=== PATIENT | female | born 1945 | race Caucasian/White ===

== ENCOUNTER → 2016-05-18 | Outpatient (CLI) | payer MEDICARE, MEDICAID | LOC: RAD 19:04 | PROVIDERS: ATTEND Internal Medicine | DX: C50.412 Malignant neoplasm of upper-outer quadrant of left female breast (principal) | CPT/HCPCS: 78815; A9552 ==

== ENCOUNTER 2016-07-20 12:22 | Emergency (ER) | payer MEDICARE, MEDICAID ==
--- NOTE | 2016-07-20 12:34 | ER Document Report ---
ED Medical Screen (RME) - General Stated Complaint: WEAKNESS Mode of Arrival: Wheelchair Information source: Patient Notes: Patient presents to the emergency department with left arm pain, fluid, that she 's had for almost 2 months. No erythema or warmth noted to area of pain. Patient reports history of breast cancer with mastectomy one year ago. Reports vomiting yesterday. Declines antinausea medication now, reports took one this am. Reports she's been to see Dr. Bender about this pain. Came in today for this pain. Reports she feels weak. reports abdominal pain from hernia. Denies chest pain. I have greeted and performed a rapid initial assessment of this patient. A comprehensive ED assessment and evaluation of the patient, analysis of test results and completion of the medical decision making process will be conducted by additional ED providers. TRAVEL OUTSIDE OF THE [place] IN LAST 30 DAYS: No - Related Data Allergies/Adverse Reactions: No Known Allergies Allergy (Verified 07/20/16 12:32) Past Medical History - Past Medical History Cardiac Medical History: Reports: Hx Hypercholesterolemia, Hx Hypertension Denies: Hx Heart Attack Pulmonary Medical History: Reports: Hx Asthma, Hx COPD Denies: Hx Bronchitis, Hx Pneumonia Neurological Medical History: Denies: Hx Seizures Endocrine Medical History: Reports: Hx Diabetes Mellitus Type 2 Malignancy Medical History: Reports: Hx Breast Cancer - Left GI Medical History: Reports: Hx Gastroesophageal Reflux Disease, Hx Endoscopy Musculoskeltal Medical History: Reports Hx Arthritis - RA, OA, Degenerative arthritis Psychiatric Medical History: Reports: Hx Depression Past Surgical History: Reports: Hx Abdominal Surgery - VENTRAL HERNIA REPAIRS WITH MESH, Hx Breast Surgery - Left mastectomy with axillary node dissection, Hx Gastric Bypass Surgery - Gastric sleeve, Hx Orthopedic Surgery - right shoulder, Bilat Knee replacement - Immunizations Immunizations up to date: Yes Hx Diphtheria, Pertussis, Tetanus Vaccination: Yes
[2016-07-20 13:05] LABS: ABSOLUTE EOSINOPHILS # (AUTO) 0.1 10^3/uL (0.0-0.6); ABSOLUTE LYMPHOCYTES (AUTO) 0.7 10^3/uL (0.5-4.7); ABSOLUTE MONOCYTES (AUTO) 0.6 10^3/uL (0.1-1.4); ABSOLUTE NEUT (AUTO) 5.5 10^3/uL (1.7-8.2); BASOPHILS % (AUTO) 0.4 % (0-2); EOSINOPHILS % (AUTO) 1.8 % (0-6); HEMATOCRIT 36.5 % (36.0-47.0); HEMOGLOBIN 12.3 g/dL (12.0-15.5); HGB HCT DIFFERENCE 0.4; LYMPHOCYTES % (AUTO) 10.7 % (13-45); MEAN CORPUSCULAR HEMOGLOBIN 33.2 pg (27.0-33.4); MEAN CORPUSCULAR HGB CONC 33.6 g/dL (32.0-36.0); MEAN CORPUSCULAR VOLUME 99 fl (80-97); RED CELL DISTRIBUTION WIDTH 16.1 % (11.5-14.0); SEGMENTED NEUTROPHILS % (AUTO) 79.1 % (42-78)
[2016-07-20 13:10] LABS: ALANINE AMINOTRANSFERASE 28 U/L (9-52); ALBUMIN 3.7 g/dL (3.5-5.0); ALKALINE PHOSPHATASE 96 U/L (38-126); ANION GAP 12 (5-19); ASPARTATE AMINO TRANSFERASE 20 U/L (14-36); BILIRUBIN,DIRECT 0.3 mg/dL (0.0-0.4); BILIRUBIN,TOTAL 0.4 mg/dL (0.2-1.3); BLOOD UREA NITROGEN 20 mg/dL (7-20); CARBON DIOXIDE 27 mmol/L (22-30); CHLORIDE 106 mmol/L (98-107); CREATININE RESULT 0.78 mg/dL (0.52-1.25); GLUCOSE 72 mg/dL (75-110); POTASSIUM 4.4 mmol/L (3.6-5.0); SODIUM 144.7 mmol/L (137-145); TOTAL PROTEIN 6.6 g/dL (6.3-8.2)
--- NOTE | 2016-07-20 14:17 | ER Document Report ---
ED General - General Chief Complaint: Arm Pain Stated Complaint: WEAKNESS Time seen by provider: 14:13 Mode of Arrival: Ambulatory Information source: Patient Notes: This is a 70-year-old female with a history of left breast cancer (status post left mastectomy, radiation therapy and chemotherapy), chronic left upper extremity pain secondary to arthritis, rheumatoid arthritis, diabetes and dyslipidemia. The patient has had chronic left shoulder pain and she is presenting to the emergency room with persistent left shoulder pain. She has been evaluated by orthopedics (Dr. Clements) as well as her primary care doctor( Dr Crawford) and has been referred to pain management. She denies any fever, chills, skin redness. She did drive here today. She states she's been experiencing pain and needs something for pain. TRAVEL OUTSIDE OF THE [place] IN LAST 30 DAYS: No - HPI Onset: Last week Onset/Duration: Gradual Quality of pain: Dull Severity: Moderate Pain Level: 2 Associated symptoms: denies: Chills, Fever, Shortness of breath Exacerbated by: Denies Relieved by: Denies Similar symptoms previously: No Recently seen / treated by doctor: No - Related Data Allergies/Adverse Reactions: No Known Allergies Allergy (Verified 07/20/16 12:32) Past Medical History - General Information source: Patient - Social History Smoking Status: Never Smoker Cigarette use (# per day): No Chew tobacco use (# tins/day): No Frequency of alcohol use: None Drug Abuse: None Lives with: Family Family History: Reviewed & Not Pertinent Patient has suicidal ideation: No Patient has homicidal ideation: No - Past Medical History Cardiac Medical History: Reports: Hx Hypercholesterolemia, Hx Hypertension Denies: Hx Heart Attack Pulmonary Medical History: Reports: Hx Asthma, Hx COPD Denies: Hx Bronchitis, Hx Pneumonia Neurological Medical History: Denies: Hx Seizures Endocrine Medical History: Reports: Hx Diabetes Mellitus Type 2 Renal/ Medical History: Denies: Hx Peritoneal Dialysis Malignancy Medical History: Reports: Hx Breast Cancer - Left GI Medical History: Reports: Hx Gastroesophageal Reflux Disease, Hx Endoscopy Musculoskeltal Medical History: Reports Hx Arthritis - RA, OA, Degenerative arthritis Psychiatric Medical History: Reports: Hx Depression Past Surgical History: Reports: Hx Abdominal Surgery - VENTRAL HERNIA REPAIRS WITH MESH, Hx Breast Surgery - Left mastectomy with axillary node dissection, Hx Gastric Bypass Surgery - Gastric sleeve, Hx Orthopedic Surgery - right shoulder, Bilat Knee replacement - Immunizations Immunizations up to date: Yes Hx Diphtheria, Pertussis, Tetanus Vaccination: Yes Hx Pneumococcal Vaccination: 12/27/12 Review of Systems - Review of Systems Notes: Review of systems: Constitutional: Denies fever, chills. EENT: Denies ear pain, sinus tenderness, throat pain, throat swelling. Cardiovascular: Denies chest pain, palpitations, dyspnea or edema. Respiratory: Denies wheezing, cough, hemoptysis. Abdomen: Denies abdominal pain, nausea, vomiting, diarrhea. Denies BRBPR or melena. Genitourinary: Denies dysuria, pyuria, hematuria, flank pain. Musculoskeletal: See H&P Neurologic: Denies headache, photophobia, neck stiffness, weakness. Denies loss of bowel or bladder function. Denies saddle anesthesia. Skin: Denies rash, lesions. Physical Exam - Vital signs Vitals: Temp Pulse Resp BP Pulse Ox 98.4 F 69 16 146/79 H 98 07/20/16 12:32 07/20/16 12:32 07/20/16 12:32 07/20/16 12:32 07/20/16 12:32 Notes: Physical exam: GENERAL: 70-year-old female, alert and oriented 3, resting in stretcher, no acute distress. HEAD: Atraumatic, normocephalic. EYES: Pupils equal round and reactive to light, extraocular movements intact, sclera anicteric, conjunctiva are normal. ENT: TMs normal, nares patent, oropharynx clear without exudates. Moist mucous membranes. NECK: Normal range of motion, supple without lymphadenopathy or JVD. LUNGS: Breath sounds clear to auscultation bilaterally and equal. No wheezes rales or rhonchi. HEART: Regular rate and rhythm without murmurs, rubs or gallops. ABDOMEN: Soft, normoactive bowel sounds. No tenderness to palpation. Extremities: Left shoulder shows decreased range of motion secondary to pain. There is crepitus with range of motion. There is no erythema or joint swelling. The patient has significant soft tissue pannus at the level of the humerus. The tissue is soft, nontender and without any erythema, warmth, fluctuance. Distally: 2+ arterial pulse. Good cap refill. Good range of motion of the wrist and elbow. The patient does have crepitus of both those joints, but there is no swelling or effusion noted. NEUROLOGICAL: Cranial nerves II through XII grossly intact. Normal speech, normal gait. PSYCH: Normal mood, normal affect. SKIN: Warm, Dry, normal turgor, no rashes or lesions noted. Course - Vital Signs Vital signs: Temp Pulse Resp BP Pulse Ox 98.4 F 77 18 155/61 H 96 07/20/16 12:32 07/20/16 15:58 07/20/16 15:58 07/20/16 15:58 07/20/16 15:58 - Laboratory Result Diagrams: 07/20/16 12:43 07/20/16 12:43 Laboratory results interpreted by me: 07/20/16 07/20/16 12:43 12:43 RBC 3.70 L MCV 99 H RDW 16.1 H Seg Neutrophils % 79.1 H Lymphocytes % 10.7 L Glucose 72 L Discharge - Discharge Clinical Impression: Pain of left shoulder joint on movement Condition: Stable Disposition: HOME, SELF-CARE Instructions: Oral Narcotic Medication ([facility]) Additional Instructions: As we discussed, the x-rays show significant arthritis of the left shoulder joint. Continue current medicines. Take the oxycodone as needed for pain. See the narcotic instruction sheet. Follow-up with your primary care doctor (Dr. Cobos) this week. Consider going to the pain clinic: I left the number for the [place] [facility]. The pain medicine you're taking prescribed as a narcotic. There are several important things you should know about this medicine: 1. Taking narcotics for too long can lead to physical and mental dependence. Take this medicine only if really needed and in the lowest quantity to achieve pain relief. 2. Do not drink alcohol while on this medicine. Alcohol interacts with narcotics and the combination can be dangerous. 3. Do not drive or operate machinery while on this medicine. 4. Narcotics do cause constipation, so drink plenty of fluids and daily stool softeners. Prescriptions: Oxycodone HCl 5 mg PO Q6HP PRN #25 tablet PRN Reason: Referrals: CARLO CRAWFORD MD [Primary Care Provider] - Follow up in 3-5 days MIAH BINGHAM MD [ACTIVE STAFF] - Follow up as needed (This is the number for the pain clinic)
[2016-07-20 16:00] VITALS: BP 155/61
== END 2016-07-20 15:58 | disposition home or self-care (01) ==
LOC: ER 12:22
DX: G89.29 Other chronic pain (principal); M25.512 Pain in left shoulder; M06.9 Rheumatoid arthritis, unspecified; E11.9 Type 2 diabetes mellitus without complications; I10 Essential (primary) hypertension; J44.9 Chronic obstructive pulmonary disease, unspecified; Z85.3 Personal history of malignant neoplasm of breast; Z92.21 Personal history of antineoplastic chemotherapy; Z92.3 Personal history of irradiation; Z98.84 Bariatric surgery status
CPT/HCPCS: 36415; 80053; 85025; 99283

== ENCOUNTER 2017-06-24 11:20 | Observation (INO) | payer MEDICARE, MEDICAID ==
--- NOTE | 2017-06-17 11:08 | RADIOLOGY REPORT (SQ) ---
EXAM DESCRIPTION: CHEST PA/LATERAL COMPLETED DATE/TIME: 06/17/2017 10:42 am REASON FOR STUDY: PRE OP COMPARISON: CT chest 04/17/2016 EXAM PARAMETERS: NUMBER OF VIEWS: two views TECHNIQUE: Digital Frontal and Lateral radiographic views of the chest acquired. RADIATION DOSE: NA LIMITATIONS: none FINDINGS: LUNGS AND PLEURA: No opacities, masses or pneumothorax. No pleural effusion. MEDIASTINUM AND HILAR STRUCTURES: No masses or contour abnormalities. HEART AND VASCULAR STRUCTURES: Heart normal size. No evidence for failure. BONES: Osteopenic. Advanced arthritis left shoulder. HARDWARE: Right-sided permanent central line tip superior vena cava. Surgical clips post left mastec shukri. Right upper quadrant clips from cholecystectomy. Inferior vena cava filter. OTHER: No other significant finding. IMPRESSION: No acute findings TECHNICAL DOCUMENTATION: JOB ID: [id number] [employer]- All Rights Reserved
[2017-06-17 11:11] LABS: HEMATOCRIT 34.9 % (36.0-47.0); HEMOGLOBIN 11.4 g/dL (12.0-15.5); MEAN CORPUSCULAR HEMOGLOBIN 29.5 pg (27.0-33.4); MEAN CORPUSCULAR HGB CONC 32.6 g/dL (32.0-36.0); MEAN CORPUSCULAR VOLUME 91 fl (80-97); PLATELET COUNT 242 10^3/uL (150-450); RED BLOOD COUNT 3.86 10^6/uL (3.72-5.28); WHITE BLOOD COUNT 5.6 10^3/uL (4.0-10.5)
[2017-06-17 11:32] LABS: ANION GAP 11 (5-19); BLOOD UREA NITROGEN 32 mg/dL (7-20); CALCIUM 9.5 mg/dL (8.4-10.2); CARBON DIOXIDE 28 mmol/L (22-30); CHLORIDE 101 mmol/L (98-107); GLUCOSE 115 mg/dL (75-110); POTASSIUM 4.7 mmol/L (3.6-5.0); SODIUM 140.2 mmol/L (137-145)
--- NOTE | 2017-06-17 13:47 | EKG REPORT ---
SEVERITY:- NORMAL ECG - SINUS RHYTHM : Confirmed by: Michael Waters MD 17-Jun-2017 13:46:59
[~2017-06-24 11:20] MED LIST: CEFAZOLIN 1 GM/D5W RTU 1 GM/50 ML RTUPB IV PRN; LACTATED RINGERS 1000 ML IV PRN; LIDOCAINE 0.5% INJ-PF (5 MG/ML) 50 ML SDV SUBCUT PRN; LIDOCAINE 4% TRANSPARENT DRESSING 5 GM KIT TP PRN; NORMAL SALINE 1000 ML 1,000 ML IV PRN
[2017-07-15] MEDS ORDERED: LIDOCAINE 0.5% INJ-PF (5 MG/ML) 50 ML SDV SUBCUT PRN (05:00)
[2017-07-15] MEDS ORDERED: LIDOCAINE 4% TRANSPARENT DRESSING 5 GM KIT TP PRN (05:00)
[2017-07-15] MEDS ORDERED: CEFAZOLIN 1 GM/D5W RTU 1 GM/50 ML RTUPB IV PRN (05:00)
[2017-07-15] MEDS ORDERED: LACTATED RINGERS 1000 ML IV PRN (05:00)
[2017-07-15] MEDS ORDERED: CEFAZOLIN INJ 1 GM VIAL IV PRN (05:00)
[2017-07-15 09:23] LABS: POTASSIUM 4.6 mmol/L (3.6-5.0)
[2017-07-15] MEDS ORDERED: MICROFIBRILLAR COLLAGEN 1 GM PACK ONE (12:20)
[2017-07-15] MEDS ORDERED: LIDOCAINE 1%/EPINEPHRINE INJ 20 ML VIAL ONE (12:20)
[2017-07-15] MEDS ORDERED: METHYLENE BLUE 50 MG/10 ML AMPULE ONE (12:20)
[2017-07-15] MEDS ORDERED: FENTANYL CITRATE INJ/PF 250 MCG/5 ML AMPULE ONE (13:28)
[2017-07-15] MEDS ORDERED: ACETAMINOPHEN 100 ML IV ONE (13:29)
[2017-07-15] MEDS ORDERED: EPHEDRINE SULFATE INJ 50 MG/1 ML AMPULE ONE (13:29)
[2017-07-15] MEDS ORDERED: MIDAZOLAM 2 MG/2 ML INJ ONE (13:29)
[2017-07-15] MEDS ORDERED: PROPOFOL INJ 200 MG/20 ML VIAL IV ONE (13:29)
[2017-07-15] MEDS ORDERED: MEPERIDINE HCL/PF INJ 25 MG/1 ML DISP.SYRIN IV PRN (14:36)
[2017-07-15] MEDS ORDERED: ONDANSETRON HCL INJ/PF 4 MG/2 ML SDV IV PRN (14:36)
[2017-07-15] MEDS ORDERED: DIPHENHYDRAMINE HCL 50 MG/ML VIAL IV PRN (14:36)
[2017-07-15] MEDS ORDERED: FENTANYL CITRATE INJ/PF 100 MCG/2 ML AMPUL IV PRN ×3 (14:36)
[2017-07-15] MEDS ORDERED: PROMETHAZINE HCL INJ 25 MG/1 ML VIAL IV PRN ×2 (14:36)
--- NOTE | 2017-07-15 14:51 | RADIOLOGY REPORT (SQ) ---
EXAM DESCRIPTION: NM LYMPHATICS/LYMPH GLANDS COMPLETED DATE/TIME: 07/15/2017 11:24 am REASON FOR STUDY: RT BREAST CANCER C50.911 MALIGNANT NEOPLASM OF UNSP SITE OF RIGHT FEMALE PADMA Z79 .899 OTHER SENIOR CARE (CURRENT) DRUG THERAPY COMPARISON: No right breast imaging available in PACs RADIONUCLIDE AND DOSE: 552 microcuries TC-99m tilmanocept - [employer]. The route of agent administration: Subcutaneous in the skin. TECHNIQUE: The skin of the right breast was prepped in sterile fashion. The radiopharmaceutical was administered in equally divided doses in the periareolar breast. LIMITATIONS: None. FINDINGS: Images demonstrate activity at the injection site. There is migration of activity towards the right axilla. IMPRESSION: ADMINISTRATION OF RADIOPHARMACEUTICAL FOR SENTINEL LYMPH NODE EVALUATION. TECHNICAL DOCUMENTATION: JOB ID: [id number] [employer]- All Rights Reserved Reading location - IP/workstation name: [email or web address]
[2017-07-15] MEDS ORDERED: LIDOCAINE 2% INJ-PF (20 MG/ML) 2 ML AMPUL ONE (14:58)
[2017-07-15] MEDS ORDERED: SUCCINYLCHOLINE CHLORIDE INJ 200 MG/10 ML VIAL ONE (14:58)
[2017-07-15] MEDS ORDERED: KETOROLAC TROMETHAMINE 60 MG/2 ML SDV ONE (14:58)
[2017-07-15] MEDS ORDERED: METOCLOPRAMIDE HCL INJ/PF 10 MG/2 ML SDV ONE (14:58)
[2017-07-15] MEDS ORDERED: ONDANSETRON HCL INJ/PF 4 MG/2 ML SDV ONE (14:58)
--- NOTE | 2017-07-15 15:17 | Operative Report ---
Operative Report DATE OF SURGERY: 07/15/17 PREOPERATIVE DIAGNOSIS: 1. New invasive lobular right breast carcinoma. 2. History of stage III invasive left breast carcinoma status post left modified radical mastectomy, the patient therapy and adjuvant chemotherapy POSTOPERATIVE DIAGNOSIS: Same OPERATION: 1. Right mastectomy. 2. [place] lymph node biopsy right axilla 3. 3. Drainage of chest wall SURGEON: TED JOHNSTON REACH TRUCK OPERATOR: SPIKE SANCHEZ ANESTHESIA: GA TISSUE REMOVED OR ALTERED: Right breast; sentinel lymph nodes right axilla 3 COMPLICATIONS: None ESTIMATED BLOOD LOSS: 75 cc INTRAOPERATIVE FINDINGS: See below PROCEDURE: Patient was seen in the preop holding area after undergoing lymphoscintigraphy of the right breast the patient was found to have an area of increased activity in the right axilla consistent with successful mapping. Right breast was marked. The patient was then taken to the main operating room where general anesthesia was induced. The breast was exposed right arm abducted, and the right breast injected with 2 cc of full-strength methylene blue areola border, 11 o'clock position right breast. Right breast was massaged, than the right breast and right axilla were prepped and draped sterile fashion. Surgical plan surgical timeout were conducted. Markings were made on the skin for planned mastectomy. An ellipse of skin was then incised with the #10 blade. Superior and inferior skin flaps were raised. The right breast was taken off the chest wall, specifically the pectoralis major muscle including the pectoralis fascia. The tumor was in the upper outer quadrant of the right breast. Once the right breast was suspended from the tail of Burns, we proceeded with sentinel node biopsy The sentinel node biopsy formed using the neoprobe intraoperatively. The area of increased activity in the low axilla identified first is a blue hot node, level 1 with an in vivo count of 5223 and an ex vivo count of 212. And sentinel lymph node was not blue, but hot but very small with an in vivo count of 19,253 and an ex vivo count of 13,601. A third sentinel node hot, small and not blue was identified also level 1 in vivo count of 8085, ex vivo count of 7702. Ground levels were negligible. At this point felt the operation was complete. The mastectomy specimen was labeled with a long suture the lateral position short suture in the superior position. Breast, and sentinel lymph nodes were sent in formalin for permanent analysis A large Brett drain was placed in the inferior skin flap, secured to skin with 2 -0 Prolene suture, then a mastectomy wound closed with running 2-0 Vicryl suture. Skin glue applied. Patient taught procedure well, extubated, taken recovery in stable condition. The physician habilitation assistant, Ms. Blackman, provided assistance during this case by: Assisting retracting tissue, instillation of local anesthesia and closure of skin incisions.
[2017-07-15] MEDS ORDERED: DEXTROSE 5%-LACTATED RINGERS 1,000 ML IV PRN (15:26)
[2017-07-15] MEDS ORDERED: MORPHINE SULFATE 10 MG/ML INJ IV PRN (15:26)
[2017-07-15] MEDS ORDERED: FENTANYL CITRATE INJ/PF 100 MCG/2 ML AMPUL ONE (15:28)
[2017-07-15] MEDS ORDERED: KETOROLAC TROMETHAMINE 10 MG TABLET PO PRN (15:31)
[2017-07-15] MEDS ORDERED: GLUCAGON,HUMAN RECOMB 1 MG INJ IM PRN (15:35)
[2017-07-15] MEDS ORDERED: DEXTROSE 50%-WATER 25 GM/50 ML DISP.SYRIN IV PRN ×2 (15:35)
[2017-07-15] MEDS ORDERED: DEXTROSE 40% GEL 15 GM TUBE PO PRN ×2 (15:35)
[2017-07-15] MEDS ORDERED: KETOROLAC TROMETHAMINE INJ/PF 30 MG/1 ML SDV ONE (16:03)
[2017-07-15] MEDS: ACETAMINOPHEN 100 ML IV SCH ×2 (17:45→23:10)
[2017-07-15] MEDS ORDERED: ACETAMINOPHEN INJ/PF 1000 MG/100 ML SDV IV SCH (18:00)
[2017-07-15] MEDS ORDERED: NORMAL SALINE 1000 ML 1,000 ML IV PRN (23:08)
[2017-07-15] MEDS ORDERED: INSULIN LISPRO 100 UNIT/ML 3 ML VIAL SUBCUT PRN (23:09)
[2017-07-16] MEDS: ACETAMINOPHEN 100 ML IV SCH (05:03)
[2017-07-16] MEDS: INSULIN LISPRO 100 UNIT/ML 3 ML VIAL SUBCUT SCH ×2 (08:21→12:14)
[2017-07-16 11:12] VITALS: BP 112/53
--- NOTE | 2017-07-21 07:29 | DISCHARGE SUMMARY E ---
Discharge Summary NAME: RICK ROMANO : 1945 AGE: 71Y ADMITTED: 07/15/2017 DISCHARGED: 07/16/2017 REASON FOR ADMISSION: Metachronous breast cancer. SUMMARY OF HOSPITALIZATION: The patient is a 71-year-old white female with a history of previous left breast cancer, stage III, who is now brought back to the operating room for right mastectomy for invasive lobular carcinoma. The patient underwent the planned procedure, right mastectomy with sentinel node biopsy x3 right axilla and drains of chest wall. Patient tolerated the procedure well. There were no postprocedure complications. She was kept overnight and the following morning was getting about well and ready for discharge home. DISCHARGE DIAGNOSES: 1. New right invasive lobular breast carcinoma status post right mastectomy with sentinel lymph node biopsy x3 and drain of chest wall by Dr. Allen. 2. History of stage III left breast carcinoma. DISPOSITION: Patient will be discharged home in the care of her family. DISCHARGE INSTRUCTIONS: Followup with [facility] in 1 week for drainage management, take Motrin or Tylenol p.r.n. pain. DICTATING PHYSICIAN: TED ALLEN M.D. [id number] PHY#: [id number] ID: [id number] JOB#: [id number] ACCT: [id number] cc:TED ALLEN M.D. >
== END 2017-07-16 12:38 | disposition home or self-care (01) ==
LOC: OROUT 07-15 08:00 → EDSTATUS 07-15 12:00 → 2N 07-15 15:26 → OROUT 07-15 16:15 → 2N 07-16 12:38
PROVIDERS: ADMIT Surgery; ATTEND Surgery
PROC: 07B50ZX Excision of Right Axillary Lymphatic, Open Approach, Diagnostic (ICD-10-PCS; 2017-07-15)
PROC: 3E0 Administration, Physiological Systems and Anatomical Regions, Introduction (ICD-10-PCS; 2017-07-15)
PROC: 0HTT0ZZ Resection of Right Breast, Open Approach (ICD-10-PCS; principal; 2017-07-15 13:30)
DX: C50.411 Malignant neoplasm of upper-outer quadrant of right female breast (principal); C77.3 Secondary and unspecified malignant neoplasm of axilla and upper limb lymph nodes; Z17.0 Estrogen receptor positive status [ER+]; I10 Essential (primary) hypertension; E11.9 Type 2 diabetes mellitus without complications; R00.2 Palpitations; M06.9 Rheumatoid arthritis, unspecified; F32.9 Major depressive disorder, single episode, unspecified; M19.90 Unspecified osteoarthritis, unspecified site; Z79.82 Long term (current) use of aspirin; Z79.899 Other long term (current) drug therapy; Z85.3 Personal history of malignant neoplasm of breast; Z80.3 Family history of malignant neoplasm of breast; Z87.891 Personal history of nicotine dependence; Z90.12 Acquired absence of left breast and nipple; Z79.84 Long term (current) use of oral hypoglycemic drugs
CPT/HCPCS: 93005; 36415 ×2; 82962; 82947; 84132; 85027; 80048; 88342 ×2; 88305 ×2; 88309 ×2; 71046; 78195; 94799; 93010; 19307; G0378 ×2; G0379; A9520; J2250; J0690; J3490 ×4; J1885 ×2; J3010; J2765; J2270; J0330; J2405; J7030; J2704; J0131 ×2; Q9968; 1610

== ENCOUNTER → 2017-09-22 | Outpatient (CLI) | payer MEDICARE, MEDICAID ==
--- NOTE | 2017-09-22 13:49 | RADIOLOGY REPORT (SQ) ---
EXAM DESCRIPTION: CHEST PA/LATERAL COMPLETED DATE/TIME: 09/22/2017 11:26 am REASON FOR STUDY: COUGH,WHEEZING R06.2 WHEEZING R05 COUGH COMPARISON: 06/17/2017 NUMBER OF VIEWS: Two view. TECHNIQUE: Frontal and lateral radiographic views of the chest acquired. LIMITATIONS: None. FINDINGS: LUNGS AND PLEURA: No opacities, masses or pneumothorax. No pleural effusion. Attenuated bl ood vessels and flattened jennifer-diaphragms. MEDIASTINUM AND HILAR STRUCTURES: No masses. No contour abnormalities. HEART AND VASCULAR STRUCTURES: Stable heart size. No evidence for failure. BONES: No acute findings. HARDWARE: Clips overlying axillary regions. OTHER: Unchanged position of right-sided port. IMPRESSION: COPD. NO ACUTE RADIOGRAPHIC FINDING IN THE CHEST. TECHNICAL DOCUMENTATION: JOB ID: [id number] [employer]- All Rights Reserved Reading location - IP/workstation name: [email or web address]
== END ==
LOC: OD 11:14
PROVIDERS: ATTEND Surgery
DX: R06.2 Wheezing (principal); R05 Cough
CPT/HCPCS: 71046

== ENCOUNTER 2017-09-23 14:51 | Emergency (ER) | payer MEDICARE, MEDICAID ==
--- NOTE | 2017-09-23 16:17 | ER Document Report ---
ED General - General Chief Complaint: General Weakness Stated Complaint: COUGH,DIZZINESS Time Seen by Provider: 09/23/17 16:15 Notes: 71 years old female with a history of bilateral mastectomy. Presents today with general weakness malaise coughing, and neck pain generalized weakness. And also loss of appetite. She was sent over here by her oncologist. I have greeted and performed a rapid initial assessment of this patient. A comprehensive ED assessment and evaluation of the patient, analysis of test results and completion of the medical decision making process will be conducted by additional ED providers. PHYSICAL EXAMINATION: GENERAL: Appears pale HEAD: Atraumatic, normocephalic. EYES: Pupils equal round extraocular movements intact, conjunctiva are normal. ENT: Nares patent NECK: Normal range of motion LUNGS: Decreased breath sounds on the right side with rales. Scattered mild wheezes throughout the lung field Musculoskeletal: Normal range of motion NEUROLOGICAL: Normal speech, normal gait. PSYCH: Normal mood, normal affect. SKIN: Warm, Dry, normal turgor, no rashes or lesions noted. TRAVEL OUTSIDE OF THE [place] IN LAST 30 DAYS: No - Related Data Allergies/Adverse Reactions: No Known Allergies Allergy (Verified 09/23/17 14:59) Past Medical History - Social History Smoking Status: Unknown if Ever Smoked Chew tobacco use (# tins/day): No Frequency of alcohol use: None Drug Abuse: None Family History: Reviewed & Not Pertinent Patient has suicidal ideation: No Patient has homicidal ideation: No - Past Medical History Cardiac Medical History: Reports: Hx Hypercholesterolemia, Hx Hypertension Denies: Hx Coronary Artery Disease, Hx Heart Attack Pulmonary Medical History: Reports: Hx Asthma, Hx COPD Denies: Hx Bronchitis, Hx Pneumonia Neurological Medical History: Denies: Hx Cerebrovascular Accident, Hx Seizures Endocrine Medical History: Reports: Hx Diabetes Mellitus Type 2 Renal/ Medical History: Denies: Hx Peritoneal Dialysis Malignancy Medical History: Reports: Hx Breast Cancer - Left GI Medical History: Reports: Hx Gastroesophageal Reflux Disease, Hx Endoscopy Musculoskeltal Medical History: Reports Hx Arthritis - RA, OA, DEGENERATIVE arthritis Psychiatric Medical History: Reports: Hx Depression Past Surgical History: Reports: Hx Abdominal Surgery - VENTRAL HERNIA REPAIRS WITH MESH, Hx Breast Surgery - Left mastectomy with axillary node dissection, Hx Gastric Bypass Surgery - Gastric sleeve, Hx Orthopedic Surgery - right shoulder, Bilat Knee replacement - Immunizations Immunizations up to date: Yes Hx Diphtheria, Pertussis, Tetanus Vaccination: Yes Hx Pneumococcal Vaccination: 12/27/12 Physical Exam - Vital signs Vitals: Temp Pulse Resp BP Pulse Ox 99.0 F 59 L 16 124/68 96 09/23/17 15:03 09/23/17 15:03 09/23/17 15:03 09/23/17 15:03 09/23/17 15:03 Course - Vital Signs Vital signs: Temp Pulse Resp BP Pulse Ox 99.0 F 59 L 16 124/68 96 09/23/17 15:03 09/23/17 15:03 09/23/17 15:03 09/23/17 15:03 09/23/17 15:03 - Laboratory Result Diagrams: 09/23/17 16:45 09/23/17 16:45 Laboratory results interpreted by me: 09/23/17 09/23/17 16:45 16:45 RBC 3.09 L Hgb 9.2 L Hct 28.3 L RDW 17.4 H Potassium 5.6 H BUN 55 H Creatinine 1.74 H Est GFR ( Amer) 35 L Est GFR (Non-Af Amer) 29 L Discharge - Discharge Referrals: CARLO CRAWFORD MD [Primary Care Provider] - Follow up as needed
[2017-09-23 17:03] LABS: ABSOLUTE EOSINOPHILS # (AUTO) 0.2 10^3/uL (0.0-0.6); ABSOLUTE LYMPHOCYTES (AUTO) 0.8 10^3/uL (0.5-4.7); ABSOLUTE MONOCYTES (AUTO) 0.5 10^3/uL (0.1-1.4); ABSOLUTE NEUT (AUTO) 3.5 10^3/uL (1.7-8.2); BASOPHILS % (AUTO) 0.3 % (0-2); EOSINOPHILS % (AUTO) 4.4 % (0-6); HEMATOCRIT 28.3 % (36.0-47.0); HEMOGLOBIN 9.2 g/dL (12.0-15.5); LYMPHOCYTES % (AUTO) 15.5 % (13-45); MEAN CORPUSCULAR HEMOGLOBIN 29.7 pg (27.0-33.4); MEAN CORPUSCULAR HGB CONC 32.5 g/dL (32.0-36.0); MEAN CORPUSCULAR VOLUME 92 fl (80-97); MONOCYTES % (AUTO) 9.8 % (3-13); PLATELET COUNT 227 10^3/uL (150-450); RED BLOOD COUNT 3.09 10^6/uL (3.72-5.28); RED CELL DISTRIBUTION WIDTH 17.4 % (11.5-14.0); TOTAL CELLS COUNTED % (AUTO) 100 %; WHITE BLOOD COUNT 4.9 10^3/uL (4.0-10.5)
[2017-09-23 17:11] LABS: ALANINE AMINOTRANSFERASE 32 U/L (9-52); ALBUMIN 3.6 g/dL (3.5-5.0); ALKALINE PHOSPHATASE 77 U/L (38-126); ANION GAP 11 (5-19); ASPARTATE AMINO TRANSFERASE 30 U/L (14-36); BILIRUBIN,DIRECT 0.3 mg/dL (0.0-0.4); BILIRUBIN,TOTAL 0.3 mg/dL (0.2-1.3); BLOOD UREA NITROGEN 55 mg/dL (7-20); CALCIUM 9.2 mg/dL (8.4-10.2); CARBON DIOXIDE 23 mmol/L (22-30); CHLORIDE 103 mmol/L (98-107); GLUCOSE 90 mg/dL (75-110); POTASSIUM 5.6 mmol/L (3.6-5.0); SODIUM 137.2 mmol/L (137-145); TOTAL PROTEIN 6.5 g/dL (6.3-8.2)
--- NOTE | 2017-09-23 17:22 | RADIOLOGY REPORT (SQ) ---
EXAM DESCRIPTION: CHEST SINGLE VIEW COMPLETED DATE/TIME: 09/23/2017 5:14 pm REASON FOR STUDY: Shortness of breath COMPARISON: 03/13/2015 EXAM PARAMETERS: NUMBER OF VIEWS: One view. TECHNIQUE: Single frontal radiographic view of the chest acquired. RADIATION DOSE: NA LIMITATIONS: None. FINDINGS: LUNGS AND PLEURA: The lungs are hyperexpanded. There is no infiltrate or effusion. There is no mass. MEDIASTINUM AND HILAR STRUCTURES: No masses. Contour normal. HEART AND VASCULAR STRUCTURES: Heart normal in size. Normal vasculature. BONES: No acute findings. HARDWARE: Surgical clips. Injection port on the right. OTHER: No other significant finding. IMPRESSION: Chronic lung changes with no acute cardiopulmonary disease. TECHNICAL DOCUMENTATION: JOB ID: [id number] [employer]- All Rights Reserved Reading location - IP/workstation name: [email or web address]
[2017-09-23 17:23] LABS: NT PRO BNP 355 pg/mL (5-900); TROPONIN I < 0.012 ng/mL
[2017-09-23] MEDS ORDERED: NORMAL SALINE 1000 ML 1,000 ML IV ONE (18:06)
[2017-09-23] MEDS ORDERED: SODIUM POLYSTYRENE SULFONATE 15 GM/60 ML PO ONE (18:06)
--- NOTE | 2017-09-23 19:29 | ER Document Report ---
ED Dizziness/Weakness - General Chief Complaint: General Weakness Stated Complaint: COUGH,DIZZINESS Time Seen by Provider: 09/23/17 16:15 Notes: Chief complaint: History of complain:( obtained from----patient) which one I do1 years old female with a history of bilateral mastectomy. Presents today with general weakness malaise coughing, and neck pain generalized weakness. And also loss of appetite. She was sent over here by her oncologist. Onset: Gradual gradual Duration: Last few days Severity: Mild to moderate Quality: Unknown Context: Breast cancer Exacerbating factor and relieving factors: Exertion REVIEW OF SYSTEMS: CONSTITUTIONAL : Denies fever, chills, or sweats. Denies recent illness. EENT: Denies eye, ear, throat, or mouth pain or symptoms. Denies nasal or sinus congestion or discharge. Denies throat, tongue, or mouth swelling or difficulty swallowing. CARDIOVASCULAR: Denies chest pain. Denies palpitations or racing or irregular heart beat. Denies ankle edema. RESPIRATORY: Denies cough, cold, or chest congestion. Denies shortness of breath, difficulty breathing, or wheezing. GASTROINTESTINAL: Denies distention. Denies nausea, vomiting, or diarrhea. Denies blood in vomitus, stools, or per rectum. Denies black, tarry stools. Denies constipation. GENITOURINARY: Denies difficulty urinating, painful urination, burning, frequency, blood in urine, or discharge. FEMALE GENITOURINARY: Denies vaginal bleeding, heavy or abnormal periods, irregular periods. Denies vaginal discharge or odor. MUSCULOSKELETAL: Denies back or neck pain or stiffness. Denies joint pain or swelling. SKIN: Denies rash, lesions or sores. HEMATOLOGIC : Denies easy bruising or bleeding. LYMPHATIC: Denies swollen, enlarged glands. PSYCHIATRIC: Denies anxiety or stress. Denies depression, suicidal ideation, or homicidal ideation. ALL OTHER SYSTEMS REVIEWED AND NEGATIVE. PHYSICAL EXAMINATION: GENERAL: Elderly, appears to be weak HEAD: Atraumatic, normocephalic.GENERAL: Appears pale HEAD: Atraumatic, normocephalic. EYES: Pupils equal round extraocular movements intact, conjunctiva are normal. ENT: Nares patent NECK: Normal range of motion LUNGS: Decreased breath sounds on the right side with rales. Scattered mild wheezes throughout the lung field Cardiovascular system-normal S1-S2 systolic murmur at apex Musculoskeletal: Normal range of motion NEUROLOGICAL: Normal speech, normal gait. PSYCH: Normal mood, normal affect. Dictation was performed using [employer] voice recognition software TRAVEL OUTSIDE OF THE [place] IN LAST 30 DAYS: No - Related Data Allergies/Adverse Reactions: No Known Allergies Allergy (Verified 09/23/17 14:59) Past Medical History - Social History Smoking Status: Unknown if Ever Smoked Chew tobacco use (# tins/day): No Frequency of alcohol use: None Drug Abuse: None Family History: Reviewed & Not Pertinent Patient has suicidal ideation: No Patient has homicidal ideation: No - Past Medical History Cardiac Medical History: Reports: Hx Hypercholesterolemia, Hx Hypertension Denies: Hx Coronary Artery Disease, Hx Heart Attack Pulmonary Medical History: Reports: Hx Asthma, Hx COPD Denies: Hx Bronchitis, Hx Pneumonia Neurological Medical History: Denies: Hx Cerebrovascular Accident, Hx Seizures Endocrine Medical History: Reports: Hx Diabetes Mellitus Type 2 Renal/ Medical History: Denies: Hx Peritoneal Dialysis Malignancy Medical History: Reports: Hx Breast Cancer - Left GI Medical History: Reports: Hx Gastroesophageal Reflux Disease, Hx Endoscopy Musculoskeltal Medical History: Reports Hx Arthritis - RA, OA, DEGENERATIVE arthritis Psychiatric Medical History: Reports: Hx Depression Past Surgical History: Reports: Hx Abdominal Surgery - VENTRAL HERNIA REPAIRS WITH MESH, Hx Breast Surgery - Left mastectomy with axillary node dissection, Hx Gastric Bypass Surgery - Gastric sleeve, Hx Orthopedic Surgery - right shoulder, Bilat Knee replacement - Immunizations Immunizations up to date: Yes Hx Diphtheria, Pertussis, Tetanus Vaccination: Yes Hx Pneumococcal Vaccination: 12/27/12 Review of Systems - Review of Systems Notes: Dictated Physical Exam - Vital signs Vitals: Temp Pulse Resp BP Pulse Ox 99.0 F 59 L 16 124/68 96 09/23/17 15:03 09/23/17 15:03 09/23/17 15:03 09/23/17 15:03 09/23/17 15:03 - Notes Notes: Dictated Course - Re-evaluation Re-evalutation: 09/23/17 19:31 She refused to stay subsequently convinced as to stay because of her elevated creatinine and potassium, managed to give a 1 L of normal saline IV. Subsequently discharged home. - Vital Signs Vital signs: Temp Pulse Resp BP Pulse Ox 99.0 F 59 L 16 124/68 96 09/23/17 15:03 09/23/17 15:03 09/23/17 15:03 09/23/17 15:03 09/23/17 15:03 - Laboratory Result Diagrams: 09/23/17 16:45 09/23/17 16:45 Laboratory results interpreted by me: 09/23/17 09/23/17 16:45 16:45 RBC 3.09 L Hgb 9.2 L Hct 28.3 L RDW 17.4 H Potassium 5.6 H BUN 55 H Creatinine 1.74 H Est GFR ( Amer) 35 L Est GFR (Non-Af Amer) 29 L Discharge - Discharge Clinical Impression: Dehydration, Hypokalemia, Azotemia Condition: Fair Disposition: HOME, SELF-CARE Instructions: Dehydration ([facility]) Referrals: CARLO CRAWFORD MD [Primary Care Provider] - Follow up as needed
[2017-09-23 19:53] VITALS: BP 94/82
--- NOTE | 2017-09-23 23:11 | EKG REPORT ---
SEVERITY:- ABNORMAL ECG - SINUS RHYTHM MULTIPLE ATRIAL PREMATURE COMPLEXES : Confirmed by: Sharon Butcher 23-Sep-2017 23:10:11
== END 2017-09-23 19:52 | disposition home or self-care (01) ==
LOC: ER 14:51
DX: E86.0 Dehydration (principal); E87.6 Hypokalemia; R79.89 Other specified abnormal findings of blood chemistry; R05 Cough; R53.1 Weakness; R42 Dizziness and giddiness; E78.00 Pure hypercholesterolemia, unspecified; I10 Essential (primary) hypertension; J44.9 Chronic obstructive pulmonary disease, unspecified; E11.9 Type 2 diabetes mellitus without complications; Z85.3 Personal history of malignant neoplasm of breast; Z98.84 Bariatric surgery status; Z96.653 Presence of artificial knee joint, bilateral
CPT/HCPCS: 93005; 36591; 99285; 96360; 36415; 85025; 80053; 84484; 83880; 71045; 93010; J7030

== ENCOUNTER → 2017-10-13 | Outpatient (CLI) | payer MEDICARE, MEDICAID ==
[2017-10-13 12:44] LABS: ABSOLUTE BASOPHILS # (AUTO) 0.1 10^3/uL (0.0-0.2); ABSOLUTE EOSINOPHILS # (AUTO) 0.2 10^3/uL (0.0-0.6); ABSOLUTE LYMPHOCYTES (AUTO) 0.9 10^3/uL (0.5-4.7); ABSOLUTE MONOCYTES (AUTO) 0.6 10^3/uL (0.1-1.4); ABSOLUTE NEUT (AUTO) 9.9 10^3/uL (1.7-8.2); BASOPHILS % (AUTO) 1.2 % (0-2); EOSINOPHILS % (AUTO) 1.7 % (0-6); HEMATOCRIT 32.9 % (36.0-47.0); HEMOGLOBIN 10.6 g/dL (12.0-15.5); LYMPHOCYTES % (AUTO) 7.7 % (13-45); MEAN CORPUSCULAR HEMOGLOBIN 29.7 pg (27.0-33.4); MEAN CORPUSCULAR HGB CONC 32.1 g/dL (32.0-36.0); MEAN CORPUSCULAR VOLUME 93 fl (80-97); MONOCYTES % (AUTO) 5.4 % (3-13); PLATELET COUNT 234 10^3/uL (150-450); RED BLOOD COUNT 3.56 10^6/uL (3.72-5.28); TOTAL CELLS COUNTED % (AUTO) 100 %; WHITE BLOOD COUNT 11.8 10^3/uL (4.0-10.5)
[2017-10-13 12:55] LABS: ALANINE AMINOTRANSFERASE 25 U/L (9-52); ALBUMIN 3.9 g/dL (3.5-5.0); ALKALINE PHOSPHATASE 84 U/L (38-126); ASPARTATE AMINO TRANSFERASE 21 U/L (14-36); BILIRUBIN,DIRECT 0.3 mg/dL (0.0-0.4); BILIRUBIN,TOTAL 0.6 mg/dL (0.2-1.3); TOTAL PROTEIN 6.6 g/dL (6.3-8.2)
== END ==
LOC: OD 11:22
PROVIDERS: ATTEND Radiology Radiation Oncology
DX: Z79.899 Other long term (current) drug therapy (principal)
CPT/HCPCS: 36415; 80076; 85025

== ENCOUNTER 2018-04-12 11:30 | Inpatient (IN) | payer MEDICARE, MEDICAID ==
[2018-04-12] MEDS ORDERED: HYDROMORPHONE HCL INJ/PF 2 MG/ML AMPULE IV ONE (12:18)
--- NOTE | 2018-04-12 12:36 | ER Document Report ---
ED General - General Chief Complaint: Pain All Over Stated Complaint: BODY PAIN Time Seen by Provider: 04/12/18 12:16 Mode of Arrival: Wheelchair Information source: Patient, Dr. Office Notes: 72-year-old female with breast cancer, bilateral mastectomy, hypertension, hyperlipidemia, diabetes, COPD, rheumatoid arthritis presents her primary care physician's office with orders for direct admission secondary to total body pain that has been ongoing for 3 days. Patient states that she has pain equally throughout her body. She denies worsening chest pain, shortness of breath. TRAVEL OUTSIDE OF THE [place] IN LAST 30 DAYS: No - HPI Onset: Other Onset/Duration: Gradual, Persistent Quality of pain: Achy, Throbbing Severity: Moderate Associated symptoms: Body/muscle aches. denies: Nonproductive cough, Diarrhea, Fever, Headache, Nausea, Vomiting Exacerbated by: Movement Relieved by: Denies Similar symptoms previously: Yes Recently seen / treated by doctor: Yes - Dr. Bender this morning - Related Data Allergies/Adverse Reactions: No Known Allergies Allergy (Verified 04/12/18 11:30) Past Medical History - General Information source: Patient, [facility] Records - Social History Smoking Status: Former Smoker Frequency of alcohol use: None Drug Abuse: None Lives with: Family Family History: Reviewed & Not Pertinent Patient has suicidal ideation: No Patient has homicidal ideation: No - Past Medical History Cardiac Medical History: Reports: Hx Hypercholesterolemia, Hx Hypertension Denies: Hx Coronary Artery Disease, Hx Heart Attack Pulmonary Medical History: Reports: Hx Asthma, Hx COPD Denies: Hx Bronchitis, Hx Pneumonia Neurological Medical History: Denies: Hx Cerebrovascular Accident, Hx Seizures Endocrine Medical History: Reports: Hx Diabetes Mellitus Type 2 Renal/ Medical History: Denies: Hx Peritoneal Dialysis Malignancy Medical History: Reports: Hx Breast Cancer - Left GI Medical History: Reports: Hx Gastroesophageal Reflux Disease, Hx Endoscopy Musculoskeletal Medical History: Reports Hx Arthritis - RA, OA, DEGENERATIVE arthritis Psychiatric Medical History: Reports: Hx Depression Past Surgical History: Reports: Hx Abdominal Surgery - VENTRAL HERNIA REPAIRS WITH MESH, Hx Breast Surgery - Left mastectomy with axillary node dissection, Hx Gastric Bypass Surgery - Gastric sleeve, Hx Orthopedic Surgery - right shoulder, Bilat Knee replacement - Immunizations Immunizations up to date: Yes Hx Diphtheria, Pertussis, Tetanus Vaccination: Yes Hx Pneumococcal Vaccination: 12/27/12 Review of Systems - Review of Systems Notes: REVIEW OF SYSTEMS: CONSTITUTIONAL : Denies fever, chills, or sweats. Denies recent illness. Denies weight loss, recent hospitalizations. EENT: Denies visual changes, eye pain. Denies sore throat, oral lesions, difficulty swallowing. CARDIOVASCULAR: Denies chest pain. Denies palpitations. Denies lower extremity edema. RESPIRATORY: Denies cough. Denies shortness of breath, wheezing. GASTROINTESTINAL: Denies abdominal pain or distention. Denies nausea, vomiting , or diarrhea. Denies blood in vomitus, stools, or per rectum. Denies black, tarry stools. Denies constipation. GENITOURINARY: Denies difficulty urinating, painful urination, frequency, blood in urine, or vaginal discharge. MUSCULOSKELETAL: Denies back or neck pain or stiffness. SKIN: Denies rash, lesions or sores. HEMATOLOGIC : Denies easy bruising or bleeding. LYMPHATIC: Denies swollen glands. NEUROLOGICAL: Denies confusion or altered mental status. Denies loss of consciousness. Denies dizziness or lightheadedness. Denies headache. Denies weakness or paralysis. Denies problems difficulty with ambulation, slurred speech. Denies sensory loss, numbness, or tingling. Denies seizures. PSYCHIATRIC: Denies anxiety or stress. Denies depression, suicidal ideation, or homicidal ideation. Denies visual or auditory hallucinations. PHYSICAL EXAMINATION: GENERAL: Well-appearing, well-nourished and in no acute distress. HEAD: Atraumatic, normocephalic. EYES: Pupils equal round and reactive to light, extraocular movements intact, conjunctiva are normal. ENT: Nares patent, oropharynx clear without exudates. Moist mucous membranes. NECK: Normal range of motion, supple without lymphadenopathy LUNGS: Breath sounds clear to auscultation bilaterally and equal. No wheezes rales or rhonchi. HEART: Regular rate and rhythm without murmurs ABDOMEN: Soft, nontender, nondistended abdomen. No guarding, no rebound. No masses appreciated. Female : deferred Musculoskeletal: Normal range of motion, no pitting or edema. No cyanosis. NEUROLOGICAL: Cranial nerves grossly intact. Normal speech, normal gait. Normal sensory, motor exams PSYCH: Normal mood, normal affect. SKIN: Warm, Dry, normal turgor, no rashes or lesions noted. Physical Exam - Vital signs Vitals: Temp Pulse Resp BP Pulse Ox 97.8 F 62 18 120/53 L 99 04/12/18 11:40 04/12/18 11:40 04/12/18 11:40 04/12/18 11:40 04/12/18 11:40 Interpretation: No: Hypoxic, Febrile - Notes Notes: PHYSICAL EXAMINATION: GENERAL: Ill-appearing, mild distress, wheelchair-bound HEAD: Atraumatic, normocephalic. EYES: Pupils equal round and reactive to light, extraocular movements intact, conjunctiva are normal. ENT: Nares patent, oropharynx clear without exudates. Dry mucous membranes. NECK: Normal range of motion, supple without lymphadenopathy LUNGS: Breath sounds clear to auscultation bilaterally and equal. No wheezes rales or rhonchi. HEART: Regular rate and rhythm without murmurs ABDOMEN: Soft, nontender, nondistended abdomen. No guarding, no rebound. No masses appreciated. Female : deferred Musculoskeletal:, no pitting or edema. No cyanosis. NEUROLOGICAL: Cranial nerves grossly intact. Normal speech, normal gait. Normal sensory, motor exams PSYCH: Normal mood, normal affect. SKIN: Warm, Dry, normal turgor, no rashes or lesions noted. Course - Re-evaluation Re-evalutation: Microbiology 04/12/18 12:47 Urine Culture - Preliminary Clean Catch Midstream Gram Negative Rods Laboratory 04/12/18 04/12/18 04/12/18 12:33 12:33 12:33 WBC 8.0 RBC 3.93 Hgb 12.0 Hct 36.3 MCV 92 MCH 30.6 MCHC 33.1 RDW 16.4 H Plt Count 234 Seg Neutrophils % 83.5 H Lymphocytes % 7.2 L Monocytes % 6.9 Eosinophils % 1.8 Basophils % 0.6 Absolute Neutrophils 6.6 Absolute Lymphocytes 0.6 Absolute Monocytes 0.5 Absolute Eosinophils 0.1 Absolute Basophils 0.0 Sodium 139.2 Potassium 4.4 Chloride 104 Carbon Dioxide 27 Anion Gap 8 BUN 20 Creatinine 0.79 Est GFR ( Amer) > 60 Est GFR (Non-Af Amer) > 60 Glucose 193 H Calcium 9.3 Total Bilirubin 0.5 Direct Bilirubin 0.3 Neonat Total Bilirubin Not Reportable Neonat Direct Bilirubin Not Reportable Neonat Indirect Bili Not Reportable AST 18 ALT 10 Alkaline Phosphatase 78 Troponin I < 0.012 NT-Pro-B Natriuret Pep 620 Total Protein 6.9 Albumin 3.9 Urine Color Urine Appearance Urine pH Ur Specific [place] Urine Protein Urine Glucose (UA) Urine Ketones Urine Blood Urine Nitrite Urine Bilirubin Urine Urobilinogen Ur Leukocyte Esterase Urine WBC (Auto) Urine Bacteria (Auto) Squamous Epi Cells Auto Urine Mucus (Auto) Urine Ascorbic Acid 04/12/18 04/13/18 04/13/18 12:47 06:28 06:28 WBC 4.6 RBC 3.46 L Hgb 10.6 L Hct 31.3 L MCV 90 MCH 30.6 MCHC 33.9 RDW 16.6 H Plt Count 178 Seg Neutrophils % Lymphocytes % Monocytes % Eosinophils % Basophils % Absolute Neutrophils Absolute Lymphocytes Absolute Monocytes Absolute Eosinophils Absolute Basophils Sodium 137.9 Potassium 4.0 Chloride 108 H Carbon Dioxide 25 Anion Gap 5 BUN 17 Creatinine 0.73 Est GFR ( Amer) > 60 Est GFR (Non-Af Amer) > 60 Glucose 105 Calcium 8.8 Total Bilirubin Direct Bilirubin Neonat Total Bilirubin Neonat Direct Bilirubin Neonat Indirect Bili AST ALT Alkaline Phosphatase Troponin I NT-Pro-B Natriuret Pep Total Protein Albumin Urine Color YELLOW Urine Appearance SLIGHTLY-CLOUDY Urine pH 5.0 Ur Specific [place] 1.020 Urine Protein NEGATIVE Urine Glucose (UA) NEGATIVE Urine Ketones NEGATIVE Urine Blood SMALL H Urine Nitrite POSITIVE H Urine Bilirubin NEGATIVE Urine Urobilinogen NEGATIVE Ur Leukocyte Esterase NEGATIVE Urine WBC (Auto) 8 Urine Bacteria (Auto) 3+ Squamous Epi Cells Auto <1 Urine Mucus (Auto) MANY Urine Ascorbic Acid NEGATIVE 04/13/18 13:23 72-year-old female presents with complaint of total body pain. Was sent here for by Dr. Bender for direct admission. Written orders for Dilaudid were given by Dr. Bender. I did contact him and he stated he did not want anything emergently obtained in the emergency department. Patient was accepted for admission. - Vital Signs Vital signs: Temp Pulse Resp BP Pulse Ox 98.3 F 64 14 118/65 98 04/13/18 11:53 04/13/18 11:53 04/13/18 11:53 04/13/18 11:53 04/13/18 11:53 - Laboratory Result Diagrams: 04/13/18 06:28 04/13/18 06:28 Laboratory results interpreted by me: 04/12/18 04/12/18 04/12/18 12:33 12:33 12:47 RDW 16.4 H Seg Neutrophils % 83.5 H Lymphocytes % 7.2 L Glucose 193 H Urine Blood SMALL H Urine Nitrite POSITIVE H Discharge - Discharge Clinical Impression: Myalgia, History of breast cancer Chronic pain Qualifiers: Chronic pain type: other chronic pain Qualified Code(s): G89.29 - Other chronic pain Condition: Good Disposition: ADMITTED INPATIENT Admitting Provider: Yulia Unit Admitted: Medical Floor
[2018-04-12 12:54] LABS: ABSOLUTE EOSINOPHILS # (AUTO) 0.1 10^3/uL (0.0-0.6); ABSOLUTE LYMPHOCYTES (AUTO) 0.6 10^3/uL (0.5-4.7); ABSOLUTE MONOCYTES (AUTO) 0.5 10^3/uL (0.1-1.4); ABSOLUTE NEUT (AUTO) 6.6 10^3/uL (1.7-8.2); BASOPHILS % (AUTO) 0.6 % (0-2); EOSINOPHILS % (AUTO) 1.8 % (0-6); HEMATOCRIT 36.3 % (36.0-47.0); LYMPHOCYTES % (AUTO) 7.2 % (13-45); MEAN CORPUSCULAR HEMOGLOBIN 30.6 pg (27.0-33.4); MEAN CORPUSCULAR HGB CONC 33.1 g/dL (32.0-36.0); MEAN CORPUSCULAR VOLUME 92 fl (80-97); MONOCYTES % (AUTO) 6.9 % (3-13); PLATELET COUNT 234 10^3/uL (150-450); RED BLOOD COUNT 3.93 10^6/uL (3.72-5.28); RED CELL DISTRIBUTION WIDTH 16.4 % (11.5-14.0); SEGMENTED NEUTROPHILS % (AUTO) 83.5 % (42-78); TOTAL CELLS COUNTED % (AUTO) 100 %
[2018-04-12 13:01] LABS: APPEARANCE,URINE SLIGHTLY-CLOUDY; BILIRUBIN,URINE NEGATIVE (NEGATIVE); COLOR,URINE YELLOW; GLUCOSE, URINE NEGATIVE (NEGATIVE); KETONES,URINE NEGATIVE (NEGATIVE); LEUKOCYTE ESTERASE,URINE NEGATIVE (NEGATIVE); NITRITE,URINE POSITIVE (NEGATIVE); PROTEIN,URINE NEGATIVE (NEGATIVE); UROBILINOGEN,URINE NEGATIVE mg/dL (<2.0)
[2018-04-12 13:12] LABS: ALANINE AMINOTRANSFERASE 10 U/L (9-52); ALBUMIN 3.9 g/dL (3.5-5.0); ALKALINE PHOSPHATASE 78 U/L (38-126); ANION GAP 8 (5-19); ASPARTATE AMINO TRANSFERASE 18 U/L (14-36); BILIRUBIN,DIRECT 0.3 mg/dL (0.0-0.4); BILIRUBIN,TOTAL 0.5 mg/dL (0.2-1.3); BLOOD UREA NITROGEN 20 mg/dL (7-20); CALCIUM 9.3 mg/dL (8.4-10.2); CARBON DIOXIDE 27 mmol/L (22-30); CHLORIDE 104 mmol/L (98-107); GLUCOSE 193 mg/dL (75-110); POTASSIUM 4.4 mmol/L (3.6-5.0); SODIUM 139.2 mmol/L (137-145); TOTAL PROTEIN 6.9 g/dL (6.3-8.2)
[2018-04-12 13:26] LABS: NT PRO BNP 620 pg/mL (5-900)
[2018-04-12 13:28] LABS: TROPONIN I < 0.012 ng/mL
--- NOTE | 2018-04-12 14:02 | RADIOLOGY REPORT (SQ) ---
EXAM DESCRIPTION: CHEST 2 VIEWS COMPLETED DATE/TIME: 04/12/2018 1:41 pm REASON FOR STUDY: pain COMPARISON: August 2017 EXAM PARAMETERS: NUMBER OF VIEWS: two views TECHNIQUE: Digital Frontal and Lateral radiographic views of the chest acquired. RADIATION DOSE: NA LIMITATIONS: none FINDINGS: LUNGS AND PLEURA: No acute consolidations are identified. There is suggestion of a pleura l base mass projected in the right lung apex laterally. Chest CT scan may be of value for further ev aluation. The previously described chronic appearing lung findings are stable. No pleural effusions are identified. No pneumothorax is seen. MEDIASTINUM AND HILAR STRUCTURES: No masses or contour abnormalities. HEART AND VASCULAR STRUCTURES: Heart normal size. No evidence for failure. BONES: No acute findings. HARDWARE: Surgical clips are again identified in the left axillary region. Port-A-Cath is unchanged in position. OTHER: No other significant finding. IMPRESSION: There is suggestion pleural-based mass projected in the right lung apex as noted above. Chest CT scan may be of value for further evaluation. No other significant interval changes compare d to the previous study. Other findings as noted above TECHNICAL DOCUMENTATION: JOB ID: [id number] [employer]- All Rights Reserved Reading location - IP/workstation name: [email or web address]
[2018-04-12] MEDS ORDERED: (PENDING PHARMACY ID) (Levocetirizine Dihydrochloride [24hr Allergy Relief] 5 MG) PO SCH (20:45)
[2018-04-12] MEDS: CIPROFLOXACIN 400 MG/D5W RTU 400 MG/200 ML RTUPB IV SCH ×2 (21:02→21:04)
[2018-04-12] MEDS: HYDROMORPHONE HCL INJ/PF 2 MG/ML AMPULE IV PRN (21:03)
--- NOTE | 2018-04-12 21:50 | PDOC H&P ---
History of Present Illness Admission Date/PCP: 04/12/18 13:38 CARLO CRAWFORD MD History of Present Illness: RICK ROMANO is a 72 year old female, She has multiple comorbid conditions including metastatic breast cancer, chronic obstructive lung disease , type 2 diabetes mellitus, rheumatoid arthritis, chronic pain, she came to the office on multiple occasions for evaluation of multiple complaints including generalized body aches ,dysuria confusion, patient sister was concerned Because she lives alone, she was admitted directly from the office to the hospital the blood work that was done for this normal hemogram the electrolytes were normal the urinalysis was abnormal With bacteriuria ,pyuria suggesting UTI. Past Medical History Cardiac Medical History: Reports: Hyperlipidema, Hypertension Pulmonary Medical History: Reports: Asthma, Chronic Obstructive Pulmonary Disease (COPD) Endocrine Medical History: Reports: Diabetes Mellitus Type 2 Malignancy Medical History: Reports: Breast Cancer - Left GI Medical History: Reports: Gastroesophageal Reflux Disease Musculoskeltal Medical History: Reports: Arthritis - RA, OA, DEGENERATIVE arthritis Psychiatric Medical History: Reports: Depression Past Surgical History Past Surgical History: Reports: Gastric Bypass Surgery - Gastric sleeve, Orthopedic Surgery - right shoulder, Bilat Knee replacement Social History Lives with: Family Smoking Status: Former Smoker Frequency of Alcohol Use: None Hx Recreational Drug Use: No Drugs: None Hx Prescription Drug Abuse: No - Advance Directive Resuscitation Status: Full Code Family History Family History: Reviewed & Not Pertinent Parental Family History Reviewed: Yes Children Family History Reviewed: Yes Sibling(s) Family History Reviewed.: Yes Medication/Allergy Home Medications: Fluticasone/Salmeterol [Advair 100-50 Diskus 14 Dose/Diskus] 1 puff IH BID 05/20 Atorvastatin Calcium [Lipitor] 20 mg PO DAILY 09/01/14 Metformin HCl [Glucophage] 1,000 mg PO BID 01/17/15 Gabapentin [Gabapentin] 300 mg PO TID 09/23/17 Letrozole 2.5 mg PO DAILY 09/23/17 Citalopram Hydrobromide [Celexa 20 mg Tablet] 20 mg PO DAILY 04/12/18 Gabapentin [Neurontin 300 mg Capsule] 600 mg PO QHS 04/12/18 Levocetirizine Dihydrochloride [24Hr Allergy Relief] 5 mg PO QPM 04/12/18 Oxycodone HCl [Oxycodone HCl ER] 15 mg PO Q12 04/12/18 Allergies/Adverse Reactions: No Known Allergies Allergy (Verified 04/12/18 11:30) Review of Systems Constitutional: PRESENT: fatigue Cardiovascular: ABSENT: as per HPI, chest pain, dyspnea on exertion, edema, orthropnea, palpitations, other Respiratory: ABSENT: as per HPI, cough, dyspnea, hemoptysis, sputum, other Gastrointestinal: PRESENT: nausea Genitourinary: PRESENT: dysuria Musculoskeletal: PRESENT: back pain, joint swelling, muscle weakness Psychiatric: ABSENT: as per HPI, anxiety, depression, hallucinations, homidical ideation, suicidal ideation, other Physical Exam Vital Signs: Temp Pulse Resp BP Pulse Ox 98.4 F 51 L 18 139/48 H 97 04/12/18 20:32 04/12/18 20:32 04/12/18 20:32 04/12/18 20:32 04/12/18 20:32 General appearance: PRESENT: no acute distress Head exam: PRESENT: atraumatic, normocephalic Eye exam: PRESENT: PERRLA Ear exam: PRESENT: normal external ear exam Mouth exam: PRESENT: moist, tongue midline Neck exam: PRESENT: full ROM Respiratory exam: PRESENT: clear to auscultation alfonso Cardiovascular exam: PRESENT: RRR, +S1, +S2 Vascular exam: PRESENT: normal capillary refill GI/Abdominal exam: PRESENT: normal bowel sounds, soft Rectal exam: PRESENT: deferred Neurological exam: PRESENT: alert, CN II-XII grossly intact Skin exam: PRESENT: dry, intact, warm Results Impressions: Chest X-Ray 04/12/18 12:17 IMPRESSION: There is suggestion pleural-based mass projected in the right lung apex as noted above. Chest CT scan may be of value for further evaluation. No other significant interval changes compared to the previous study. Other findings as noted above Assessment & Plan - Diagnosis (1) Urinary tract infection Qualifiers: Urinary tract infection type: site unspecified Hematuria presence: without hematuria Qualified Code(s): N39.0 - Urinary tract infection, site not specified Is this a current diagnosis for this admission?: Yes Plan: Start antibiotic for UTI (2) History of breast cancer Is this a current diagnosis for this admission?: Yes (3) Myalgia Is this a current diagnosis for this admission?: Yes Plan: The etiology of the myalgia is not clear
[2018-04-12] MEDS: FLUTICASONE/SALMETEROL DISKUS 100-50 MCG/DOSE IH SCH (22:31)
[2018-04-12] MEDS: METFORMIN HCL 500 MG TABLET PO SCH (22:51)
[2018-04-13 06:47] LABS: HEMATOCRIT 31.3 % (36.0-47.0); HEMOGLOBIN 10.6 g/dL (12.0-15.5); MEAN CORPUSCULAR HEMOGLOBIN 30.6 pg (27.0-33.4); MEAN CORPUSCULAR HGB CONC 33.9 g/dL (32.0-36.0); MEAN CORPUSCULAR VOLUME 90 fl (80-97); PLATELET COUNT 178 10^3/uL (150-450); RED BLOOD COUNT 3.46 10^6/uL (3.72-5.28); RED CELL DISTRIBUTION WIDTH 16.6 % (11.5-14.0); WHITE BLOOD COUNT 4.6 10^3/uL (4.0-10.5)
[2018-04-13 07:13] LABS: BLOOD UREA NITROGEN 17 mg/dL (7-20); CALCIUM 8.8 mg/dL (8.4-10.2); CARBON DIOXIDE 25 mmol/L (22-30); CHLORIDE 108 mmol/L (98-107); GLUCOSE 105 mg/dL (75-110)
[2018-04-13 08:04] LABS: ANION GAP 5 (5-19); SODIUM 137.9 mmol/L (137-145)
[2018-04-13] MEDS: LETROZOLE 2.5 MG TABLET PO SCH (09:11)
[2018-04-13] MEDS: CIPROFLOXACIN 400 MG/D5W RTU 400 MG/200 ML RTUPB IV SCH ×2 (09:11→21:22)
[2018-04-13] MEDS: METFORMIN HCL 500 MG TABLET PO SCH ×2 (09:11→17:52)
[2018-04-13] MEDS: HYDROMORPHONE HCL INJ/PF 2 MG/ML AMPULE IV PRN ×2 (09:12→18:52)
[2018-04-13] MEDS: FLUTICASONE/SALMETEROL DISKUS 100-50 MCG/DOSE IH SCH ×2 (09:24→17:52)
[2018-04-13] MEDS: CETIRIZINE 5 MG TABLET PO SCH (17:52)
[2018-04-13] MEDS: GABAPENTIN 300 MG CAPSULE PO SCH (19:53)
[2018-04-13] MEDS: CITALOPRAM HYDROBROMIDE 20 MG TABLET PO SCH (19:53)
--- NOTE | 2018-04-13 21:15 | PDOC PROGRESS REPORT ---
Subjective Progress Note for:: 04/13/18 Subjective:: Patient was admitted yesterday, she was seen by the bedside,She has urinary tract infection Reason For Visit: GENERALIZED BODY PAIN Physical Exam Vital Signs: Temp Pulse Resp BP Pulse Ox 97.6 F 71 18 136/60 H 93 04/13/18 20:09 04/13/18 20:09 04/13/18 20:09 04/13/18 20:09 04/13/18 20:09 Intake & Output 04/12/18 04/13/18 04/14/18 06:59 06:59 06:59 Intake Total 400 150 Balance 400 150 Weight 85.7 kg General appearance: PRESENT: no acute distress Eye exam: PRESENT: PERRLA Respiratory exam: PRESENT: clear to auscultation alfonso Cardiovascular exam: PRESENT: +S1, +S2 Neurological exam: PRESENT: alert Results Laboratory Results: 04/13/18 06:28 04/13/18 06:28 04/13/18 04/13/18 06:28 06:28 WBC 4.6 RBC 3.46 L Hgb 10.6 L Hct 31.3 L MCV 90 MCH 30.6 MCHC 33.9 RDW 16.6 H Plt Count 178 Sodium 137.9 Potassium 4.0 Chloride 108 H Carbon Dioxide 25 Anion Gap 5 BUN 17 Creatinine 0.73 Est GFR ( Amer) > 60 Est GFR (Non-Af Amer) > 60 Glucose 105 Calcium 8.8 Impressions: Chest X-Ray 04/12/18 12:17 IMPRESSION: There is suggestion pleural-based mass projected in the right lung apex as noted above. Chest CT scan may be of value for further evaluation. No other significant interval changes compared to the previous study. Other findings as noted above Assessment & Plan - Diagnosis (1) Urinary tract infection Qualifiers: Urinary tract infection type: site unspecified Hematuria presence: without hematuria Qualified Code(s): N39.0 - Urinary tract infection, site not specified Is this a current diagnosis for this admission?: Yes (2) History of breast cancer Is this a current diagnosis for this admission?: Yes (3) Myalgia Is this a current diagnosis for this admission?: Yes
[2018-04-13] MEDS: ONDANSETRON HCL INJ/PF 4 MG/2 ML SDV IV PRN (23:31)
[2018-04-14] MEDS: GABAPENTIN 300 MG CAPSULE PO SCH ×5 (09:54→22:02)
[2018-04-14] MEDS: FLUTICASONE/SALMETEROL DISKUS 100-50 MCG/DOSE IH SCH ×2 (09:55→17:01)
[2018-04-14] MEDS: CIPROFLOXACIN 400 MG/D5W RTU 400 MG/200 ML RTUPB IV SCH (09:56)
[2018-04-14] MEDS: CITALOPRAM HYDROBROMIDE 20 MG TABLET PO SCH (09:56)
[2018-04-14] MEDS: LETROZOLE 2.5 MG TABLET PO SCH (09:56)
[2018-04-14] MEDS: METFORMIN HCL 500 MG TABLET PO SCH ×2 (09:57→16:59)
[2018-04-14] MEDS: HYDROMORPHONE HCL INJ/PF 2 MG/ML AMPULE IV PRN ×2 (11:39→17:38)
[2018-04-14] MEDS: CEPHALEXIN 500 MG CAPSULE PO SCH ×2 (13:17→22:02)
[2018-04-14] MEDS: CETIRIZINE 5 MG TABLET PO SCH (17:00)
[2018-04-14] MEDS: ONDANSETRON HCL INJ/PF 4 MG/2 ML SDV IV PRN (17:44)
--- NOTE | 2018-04-14 20:21 | PDOC PROGRESS REPORT ---
Subjective Progress Note for:: 04/14/18 Subjective:: Patient, urine culture grew E. coli resistant to Cipro, she was empirically started on Cipro for UTI on admission, the antibiotic is being change based on the recommendation from the pharmacist Reason For Visit: GENERALIZED BODY PAIN Physical Exam Vital Signs: Temp Pulse Resp BP Pulse Ox 98.2 F 76 18 119/79 97 04/14/18 15:25 04/14/18 15:25 04/14/18 15:25 04/14/18 15:25 04/14/18 15:25 Intake & Output 04/13/18 04/14/18 04/15/18 06:59 06:59 06:59 Intake Total 648 675 2973 Balance 805 647 6359 Weight 85.7 kg 85.6 kg General appearance: PRESENT: no acute distress Eye exam: PRESENT: PERRLA Respiratory exam: PRESENT: clear to auscultation alfonso Cardiovascular exam: PRESENT: +S1, +S2 GI/Abdominal exam: PRESENT: soft Results Laboratory Results: 04/13/18 06:28 04/13/18 06:28 04/12/18 12:47 Clean Catch Midstream Urine Culture - Final Escherichia Coli 04/12/18 04/13/18 04/13/18 12:33 21:20 21:20 Creatine Kinase 28 L CK-MB (CK-2) 0.45 Troponin I < 0.012 NT-Pro-B Natriuret Pep 620 Impressions: Chest X-Ray 04/12/18 12:17 IMPRESSION: There is suggestion pleural-based mass projected in the right lung apex as noted above. Chest CT scan may be of value for further evaluation. No other significant interval changes compared to the previous study. Other findings as noted above Assessment & Plan - Diagnosis (1) Urinary tract infection Qualifiers: Urinary tract infection type: site unspecified Hematuria presence: without hematuria Qualified Code(s): N39.0 - Urinary tract infection, site not specified Is this a current diagnosis for this admission?: Yes (2) History of breast cancer Is this a current diagnosis for this admission?: Yes (3) Myalgia Is this a current diagnosis for this admission?: Yes (4) E. coli UTI Is this a current diagnosis for this admission?: Yes
[2018-04-15] MEDS: LETROZOLE 2.5 MG TABLET PO SCH (10:20)
[2018-04-15] MEDS: CEPHALEXIN 500 MG CAPSULE PO SCH ×2 (10:20→21:16)
[2018-04-15] MEDS: METFORMIN HCL 500 MG TABLET PO SCH ×2 (10:20→18:14)
[2018-04-15] MEDS: FLUTICASONE/SALMETEROL DISKUS 100-50 MCG/DOSE IH SCH ×2 (10:20→18:14)
[2018-04-15] MEDS: GABAPENTIN 300 MG CAPSULE PO SCH ×4 (10:20→21:16)
[2018-04-15] MEDS: CITALOPRAM HYDROBROMIDE 20 MG TABLET PO SCH (10:20)
[2018-04-15] MEDS: ONDANSETRON HCL INJ/PF 4 MG/2 ML SDV IV PRN ×2 (14:19→18:17)
[2018-04-15] MEDS: CETIRIZINE 5 MG TABLET PO SCH (18:14)
--- NOTE | 2018-04-15 20:02 | PDOC DISCHARGE SUMMARY ---
General - Admit/Disc Date/PCP Admission Date/Primary Care Provider: 04/12/18 13:38 CARLO CRAWFORD MD Discharge Date: 04/16/18 - Discharge Diagnosis (1) Urinary tract infection Is this a current diagnosis for this admission?: Yes (2) History of breast cancer Is this a current diagnosis for this admission?: Yes (3) Myalgia Is this a current diagnosis for this admission?: Yes (4) E. coli UTI Is this a current diagnosis for this admission?: Yes - Additional Information Resuscitation Status: Full Code Prescriptions: Cephalexin Monohydrate [Keflex 500 mg Capsule] 500 mg PO Q12 #10 capsule Oxycodone HCl 10 mg PO Q6H #120 tablet Polyethylene Glycol 3350 [Miralax Powder 17 gm/Packet] 1 packet PO DAILY #90 pkg Home Medications: Fluticasone/Salmeterol [Advair 100-50 Diskus 14 Dose/Diskus] 1 puff IH BID 05/20/13 Atorvastatin Calcium [Lipitor] 20 mg PO DAILY 09/01/14 Metformin HCl [Glucophage] 1,000 mg PO BID 01/17/15 Gabapentin 300 mg PO TID 09/23/17 Letrozole 2.5 mg PO DAILY 09/23/17 Citalopram Hydrobromide [Celexa 20 mg Tablet] 20 mg PO DAILY 04/12/18 Levocetirizine Dihydrochloride [24Hr Allergy Relief] 5 mg PO QPM 04/12/18 Cephalexin Monohydrate [Keflex 500 mg Capsule] 500 mg PO Q12 #10 capsule 04/15/18 Oxycodone HCl 10 mg PO Q6H #120 tablet 04/15/18 Polyethylene Glycol 3350 [Miralax Powder 17 gm/Packet] 1 packet PO DAILY #90 pkg 04/15/18 History of Present Illness History of Present Illness: RICK ROMANO is a 72 year old female, She has multiple comorbid conditions including metastatic breast cancer, chronic obstructive lung disease, type 2 diabetes mellitus, rheumatoid arthritis, chronic pain, she came to the office on multiple occasions for evaluation of multiple complaints including generalized body aches ,dysuria confusion, patient sister was concerned Because she lives alone, she was admitted directly from the office to the hospital the blood work that was done for this normal hemogram the electrolytes were normal the urinalysis was abnormal With bacteriuria ,pyuria suggesting UTI. Hospital Course Hospital Course: Patient was admitted for the management of E. coli UTI, she was initially treated empirically with IV ciprofloxacin, the bacteria was resistant to Cipro and subsequently change. She has generalized body aches and pain the exact etiology was not clear Physical Exam Vital Signs: Temp Pulse Resp BP Pulse Ox 97.8 F 70 15 111/52 L 96 04/15/18 16:09 04/15/18 16:09 04/15/18 16:09 04/15/18 16:09 04/15/18 16:09 Intake & Output 04/14/18 04/15/18 04/16/18 06:59 06:59 06:59 Intake Total 550 2140 850 Balance 550 2140 850 Weight 85.6 kg 89 kg General appearance: PRESENT: no acute distress, well-developed, well-nourished Head exam: PRESENT: atraumatic, normocephalic Eye exam: PRESENT: conjunctiva pink, EOMI, PERRLA Ear exam: PRESENT: normal external ear exam Mouth exam: PRESENT: moist, tongue midline Neck exam: PRESENT: full ROM Respiratory exam: PRESENT: clear to auscultation alfonso Cardiovascular exam: PRESENT: RRR, +S1, +S2 Vascular exam: PRESENT: normal capillary refill GI/Abdominal exam: PRESENT: normal bowel sounds, soft Rectal exam: PRESENT: deferred Neurological exam: PRESENT: alert, CN II-XII grossly intact Skin exam: PRESENT: dry, intact, warm Results Laboratory Results: 04/13/18 06:28 04/13/18 06:28 04/12/18 04/13/18 04/13/18 12:33 21:20 21:20 Creatine Kinase 28 L CK-MB (CK-2) 0.45 Troponin I < 0.012 NT-Pro-B Natriuret Pep 620 Impressions: Chest X-Ray 04/12/18 12:17 IMPRESSION: There is suggestion pleural-based mass projected in the right lung apex as noted above. Chest CT scan may be of value for further evaluation. No other significant interval changes compared to the previous study. Other findings as noted above Qualifiers - * PATIENT BEING DISCHARGED WITH ANY OF THE FOLLOWING DIAGNOSIS: No
[2018-04-16] MEDS: GABAPENTIN 300 MG CAPSULE PO SCH ×3 (09:37→17:17)
[2018-04-16] MEDS: METFORMIN HCL 500 MG TABLET PO SCH ×2 (09:37→17:17)
[2018-04-16] MEDS: CITALOPRAM HYDROBROMIDE 20 MG TABLET PO SCH (09:37)
[2018-04-16] MEDS: FLUTICASONE/SALMETEROL DISKUS 100-50 MCG/DOSE IH SCH ×2 (09:37→17:19)
[2018-04-16] MEDS: LETROZOLE 2.5 MG TABLET PO SCH (09:38)
[2018-04-16] MEDS: CEPHALEXIN 500 MG CAPSULE PO SCH (09:38)
[2018-04-16] MEDS: HYDROMORPHONE HCL INJ/PF 2 MG/ML AMPULE IV PRN ×2 (09:58→17:18)
[2018-04-16] MEDS: ONDANSETRON HCL INJ/PF 4 MG/2 ML SDV IV PRN ×3 (10:25→17:17)
[2018-04-16] MEDS: CETIRIZINE 5 MG TABLET PO SCH (17:17)
[2018-04-16 20:00] VITALS: BP 108/47
== END 2018-04-16 19:45 | DRG 690 ==
LOC: ER 11:30 → EH 13:38 → 2N 15:16
PROVIDERS: ADMIT Internal Medicine; ATTEND Internal Medicine
DX: N39.0 Urinary tract infection, site not specified (principal); M79.10 Myalgia, unspecified site; B96.20 Unspecified Escherichia coli [E. coli] as the cause of diseases classified elsewhere; M06.9 Rheumatoid arthritis, unspecified; J44.9 Chronic obstructive pulmonary disease, unspecified; G89.29 Other chronic pain; E78.00 Pure hypercholesterolemia, unspecified; I10 Essential (primary) hypertension; K21.9 Gastro-esophageal reflux disease without esophagitis; E11.9 Type 2 diabetes mellitus without complications; F32.9 Major depressive disorder, single episode, unspecified; Z96.653 Presence of artificial knee joint, bilateral; Z85.3 Personal history of malignant neoplasm of breast; Z79.84 Long term (current) use of oral hypoglycemic drugs; Z79.899 Other long term (current) drug therapy; Z98.84 Bariatric surgery status; Z87.891 Personal history of nicotine dependence; Z90.12 Acquired absence of left breast and nipple; Z79.82 Long term (current) use of aspirin
CPT/HCPCS: 36415; 71046; 80048; 80053; 81001; 82550; 82553; 83880; 84484; 85025; 85027; 87040; 87086; 87088; 87186; 96374; 99284; J0744; J1170; J2405; J3490

== ENCOUNTER 2018-05-06 16:27 | Emergency (ER) | payer MEDICARE, MEDICAID ==
[2018-05-06] MEDS ORDERED: IPRATROPIUM/ALBUTEROL 0.5-2.5 MG/3 ML AMPUL NEB ONE (17:06)
--- NOTE | 2018-05-06 17:30 | ER Document Report ---
ED Respiratory Problem - General Chief Complaint: Cough Stated Complaint: SHOULDER PAIN Time Seen by Provider: 05/06/18 17:03 Mode of Arrival: Ambulatory Information source: Patient Notes: Chief complaint: Referred here to rule out pneumonia History of complain:( obtained from----patient) 72 years old female with a history of COPD and arthritis both rheumatoid /osteo-. Was sent over here to be rule out for pneumonia. Patient did not have any symptoms of productive cough. Any difficulty in breathing more than usual. No fever chills or other constitutional symptoms Onset: As above Duration: Gradual continue with Severity: Mild Quality: Unknown Context: Unknown Exacerbating factor and relieving factors: Unknown REVIEW OF SYSTEMS: CONSTITUTIONAL : Denies fever, chills, or sweats. Denies recent illness. EENT: Denies eye, ear, throat, or mouth pain or symptoms. Denies nasal or sinus congestion or discharge. Denies throat, tongue, or mouth swelling or difficulty swallowing. CARDIOVASCULAR: Denies chest pain. Denies palpitations or racing or irregular heart beat. Denies ankle edema. RESPIRATORY: Denies cough, cold, or chest congestion. Denies shortness of breath, difficulty breathing, or wheezing. GASTROINTESTINAL: Denies distention. Denies nausea, vomiting, or diarrhea. Denies blood in vomitus, stools, or per rectum. Denies black, tarry stools. Denies constipation. GENITOURINARY: Denies difficulty urinating, painful urination, burning, frequency, blood in urine, or discharge. FEMALE GENITOURINARY: Denies vaginal bleeding, heavy or abnormal periods, irregular periods. Denies vaginal discharge or odor. MUSCULOSKELETAL: Denies back or neck pain or stiffness. Denies joint pain or swelling. SKIN: Denies rash, lesions or sores. HEMATOLOGIC : Denies easy bruising or bleeding. LYMPHATIC: Denies swollen, enlarged glands. NEUROLOGICAL: Denies confusion or altered mental status. Denies passing out or loss of consciousness. Denies dizziness or lightheadedness. Denies headache. Denies weakness or paralysis or loss of use of either side. Denies problems with gait or speech. Denies sensory loss, numbness, or tingling. Denies sei zures. PSYCHIATRIC: Denies anxiety or stress. Denies depression, suicidal ideation, or homicidal ideation. ALL OTHER SYSTEMS REVIEWED AND NEGATIVE. PHYSICAL EXAMINATION: GENERAL: Well-appearing, well-nourished and in no acute distress. HEAD: Atraumatic, normocephalic. EYES: Pupils equal round and reactive to light, extraocular movements intact, conjunctiva are normal. ENT: Nares patent, oropharynx clear without exudates. Moist mucous membranes. NECK: Normal range of motion, supple without lymphadenopathy LUNGS: Breath sounds clear to auscultation bilaterally and equal. No wheezes rales or rhonchi. HEART: Regular rate and rhythm without murmurs ABDOMEN: Soft, nontender, nondistended abdomen. No guarding, no rebound. No masses appreciated. Examination of genitals-deferred Musculoskeletal: Normal range of motion, no pitting or edema. No cyanosis. NEUROLOGICAL: Cranial nerves grossly intact. Normal speech, normal gait. Normal sensory, motor exams PSYCH: Normal mood, normal affect. SKIN: Warm, Dry, normal turgor, no rashes or lesions noted. Dictation was performed using [employer] voice recognition software TRAVEL OUTSIDE OF THE [place] IN LAST 30 DAYS: No - HPI Notes: Dictated - Related Data Allergies/Adverse Reactions: No Known Allergies Allergy (Verified 05/06/18 16:30) Past Medical History - Social History Smoking Status: Former Smoker Chew tobacco use (# tins/day): No Frequency of alcohol use: None Drug Abuse: None Lives with: Family Family History: Reviewed & Not Pertinent Patient has suicidal ideation: No Patient has homicidal ideation: No - Past Medical History Cardiac Medical History: Reports: Hx Hypercholesterolemia, Hx Hypertension Denies: Hx Coronary Artery Disease, Hx Heart Attack Pulmonary Medical History: Reports: Hx Asthma, Hx COPD Denies: Hx Bronchitis, Hx Pneumonia Neurological Medical History: Denies: Hx Cerebrovascular Accident, Hx Seizures Endocrine Medical History: Reports: Hx Diabetes Mellitus Type 2 Renal/ Medical History: Denies: Hx Peritoneal Dialysis Malignancy Medical History: Reports: Hx Breast Cancer - Left GI Medical History: Reports: Hx Gastroesophageal Reflux Disease, Hx Endoscopy Musculoskeletal Medical History: Reports Hx Arthritis - RA, OA, DEGENERATIVE arthritis Psychiatric Medical History: Reports: Hx Depression Past Surgical History: Reports: Hx Abdominal Surgery - VENTRAL HERNIA REPAIRS WITH MESH, Hx Breast Surgery - Left mastectomy with axillary node dissection, Hx Gastric Bypass Surgery - Gastric sleeve, Hx Mastectomy - double, Hx Orthopedic Surgery - right shoulder, Bilat Knee replacement, bilat feet - Immunizations Immunizations up to date: Yes Hx Diphtheria, Pertussis, Tetanus Vaccination: Yes Hx Pneumococcal Vaccination: 12/27/12 Review of Systems - Review of Systems Notes: Dictated Physical Exam - Vital signs Vitals: Temp Pulse Resp BP Pulse Ox 98.2 F 72 20 144/67 H 95 05/06/18 16:35 05/06/18 16:35 05/06/18 16:35 05/06/18 16:35 05/06/18 16:35 - Notes Notes: Dictated Course - Vital Signs Vital signs: Temp Pulse Resp BP Pulse Ox 98.2 F 72 20 144/67 H 95 05/06/18 16:35 05/06/18 16:35 05/06/18 16:35 05/06/18 16:35 05/06/18 16:35 - Diagnostic Test Radiology reviewed: Image reviewed - Chest x-ray did not show any infiltration of effusion or pneumothorax. No pneumonia Discharge - Discharge Clinical Impression: COPD (chronic obstructive pulmonary disease) Qualifiers: COPD type: unspecified COPD Qualified Code(s): J44.9 - Chronic obstructive pulmonary disease, unspecified Condition: Fair Disposition: HOME, SELF-CARE Instructions: Chronic Obstructive Lung Disease ([facility]) Prescriptions: Albuterol Sulfate [Proair HFA Inhalation Aerosol 8.5 gm MDI] 2 puff IH Q4H PRN #1 mdi PRN Reason: Fluticasone/Vilanterol [Breo Ellipta 200-25 Mcg INH] 1 each IH DAILY #1 blst.w.dev Referrals: CARLO CRAWFORD MD [Primary Care Provider] - Follow up as needed
--- NOTE | 2018-05-06 17:48 | RADIOLOGY REPORT (SQ) ---
EXAM DESCRIPTION: CHEST 2 VIEWS COMPLETED DATE/TIME: 05/06/2018 5:34 pm REASON FOR STUDY: COPD, cough COMPARISON: 04/12/2018 EXAM PARAMETERS: NUMBER OF VIEWS: two views TECHNIQUE: Digital Frontal and Lateral radiographic views of the chest acquired. RADIATION DOSE: NA LIMITATIONS: none FINDINGS: LUNGS AND PLEURA: Mild hyperexpansion of the lungs. Mild chronic interstitial changes. F ocal area pleural thickening in the right upper thorax shows no change. MEDIASTINUM AND HILAR STRUCTURES: No masses or contour abnormalities. HEART AND VASCULAR STRUCTURES: Heart normal size. No evidence for failure. BONES: No acute findings. HARDWARE: Injection port. OTHER: No other significant finding. IMPRESSION: No acute findings in the chest. There is a focal area pleural thickening in the right u pper hemithorax that appears stable. TECHNICAL DOCUMENTATION: JOB ID: [id number] [employer]- All Rights Reserved Reading location - IP/workstation name: [email or web address]
[2018-05-06 19:06] VITALS: BP 143/118
== END 2018-05-06 19:05 | disposition home or self-care (01) ==
LOC: ER 16:27
DX: J44.9 Chronic obstructive pulmonary disease, unspecified (principal); M25.519 Pain in unspecified shoulder; E11.9 Type 2 diabetes mellitus without complications; Z87.891 Personal history of nicotine dependence; I10 Essential (primary) hypertension
CPT/HCPCS: 94640; 99284; 71046; A9270; J7620

== ENCOUNTER 2018-06-08 13:10 | Observation (INO) | payer MEDICARE, MEDICAID ==
[2018-06-08 14:00] LABS: ABSOLUTE EOSINOPHILS # (AUTO) 0.2 10^3/uL (0.0-0.6); ABSOLUTE LYMPHOCYTES (AUTO) 0.5 10^3/uL (0.5-4.7); ABSOLUTE MONOCYTES (AUTO) 0.4 10^3/uL (0.1-1.4); ABSOLUTE NEUT (AUTO) 4.5 10^3/uL (1.7-8.2); BASOPHILS % (AUTO) 0.4 % (0-2); HEMATOCRIT 30.5 % (36.0-47.0); LYMPHOCYTES % (AUTO) 8.9 % (13-45); MEAN CORPUSCULAR HEMOGLOBIN 29.9 pg (27.0-33.4); MEAN CORPUSCULAR HGB CONC 32.9 g/dL (32.0-36.0); MEAN CORPUSCULAR VOLUME 91 fl (80-97); MONOCYTES % (AUTO) 7.6 % (3-13); PLATELET COUNT 211 10^3/uL (150-450); RED BLOOD COUNT 3.35 10^6/uL (3.72-5.28); RED CELL DISTRIBUTION WIDTH 17.2 % (11.5-14.0); SEGMENTED NEUTROPHILS % (AUTO) 79.1 % (42-78); TOTAL CELLS COUNTED % (AUTO) 100 %; WHITE BLOOD COUNT 5.7 10^3/uL (4.0-10.5)
--- NOTE | 2018-06-08 14:01 | RADIOLOGY REPORT (SQ) ---
EXAM DESCRIPTION: CHEST SINGLE VIEW COMPLETED DATE/TIME: 06/08/2018 1:46 pm REASON FOR STUDY: cancer COMPARISON: 05/06/2018 EXAM PARAMETERS: NUMBER OF VIEWS: One view. TECHNIQUE: Single frontal radiographic view of the chest acquired. RADIATION DOSE: NA LIMITATIONS: None. FINDINGS: LUNGS AND PLEURA: Emphysematous changes in the lungs. Able appearing right apical-right upper lobe pleural thickening. No acute pulmonary consolidation. Mild prominence of the interstitia l markings stable findings. MEDIASTINUM AND HILAR STRUCTURES: No masses. Contour normal. HEART AND VASCULAR STRUCTURES: Heart normal in size. Normal vasculature. BONES: The osseous structures are stable in appearance. HARDWARE: Multiple surgical metallic clips overlying the bilateral lateral chest hinson. Right Infus e-A-Port catheter, stable finding. OTHER: No other significant finding. IMPRESSION: 1. No significant interval changes since the prior examination dated 05/06/2018. Stable focal pleural thickening in the right apex -right upper lobe. TECHNICAL DOCUMENTATION: JOB ID: [id number] [employer]- All Rights Reserved Reading location - IP/workstation name: [email or web address]
[2018-06-08 14:07] LABS: ANION GAP 6 (5-19); BLOOD UREA NITROGEN 19 mg/dL (7-20); CARBON DIOXIDE 28 mmol/L (22-30); CHLORIDE 112 mmol/L (98-107); GLUCOSE 76 mg/dL (75-110); SODIUM 145.7 mmol/L (137-145)
--- NOTE | 2018-06-08 14:27 | ER Document Report ---
ED General - General Chief Complaint: Arrhythmia Stated Complaint: GENERAL WEAKNESS Time Seen by Provider: 06/08/18 13:14 Primary Care Provider: LUIS SMITH MD [ACTIVE STAFF] - Follow up in 1 week CARLO CRAWFORD MD [Primary Care Provider] - Follow up as needed TRAVEL OUTSIDE OF THE [place] IN LAST 30 DAYS: No - Related Data Allergies/Adverse Reactions: No Known Allergies Allergy (Verified 05/06/18 16:30) Past Medical History - Social History Smoking Status: Former Smoker Family History: Reviewed & Not Pertinent - Past Medical History Cardiac Medical History: Reports: Hx Hypercholesterolemia, Hx Hypertension Denies: Hx Coronary Artery Disease, Hx Heart Attack Pulmonary Medical History: Reports: Hx Asthma, Hx COPD Denies: Hx Bronchitis, Hx Pneumonia Neurological Medical History: Denies: Hx Cerebrovascular Accident, Hx Seizures Endocrine Medical History: Reports: Hx Diabetes Mellitus Type 2 Renal/ Medical History: Denies: Hx Peritoneal Dialysis Malignancy Medical History: Reports: Hx Breast Cancer - Left GI Medical History: Reports: Hx Gastroesophageal Reflux Disease, Hx Endoscopy Musculoskeletal Medical History: Reports Hx Arthritis - RA, OA, DEGENERATIVE arthritis Psychiatric Medical History: Reports: Hx Depression Past Surgical History: Reports: Hx Abdominal Surgery - VENTRAL HERNIA REPAIRS WITH MESH, Hx Breast Surgery - Left mastectomy with axillary node dissection, Hx Gastric Bypass Surgery - Gastric sleeve, Hx Mastectomy - double, Hx Orthopedic Surgery - right shoulder, Bilat Knee replacement, bilat feet - Immunizations Immunizations up to date: Yes Hx Diphtheria, Pertussis, Tetanus Vaccination: Yes Hx Pneumococcal Vaccination: 12/27/12 Course - Re-evaluation Re-evalutation: 06/08/18 15:17 Presents with episode of what looks like atrial flutter with 2-1 block converted with adenosine now asymptomatic. No inciting factors. Patient's exam is now normal. She does have a history of breast cancer status post chemo and radiation. Will recheck EKG check labs for electrolytes, check troponin and CT PE given cancer and risk of embolus causing atrial arrhythmias. Patient remained asymptomatic in the ED. Her EKG was sinus and normal, her CT PE did not show embolus and her labs are normal. Discussed with Dr. Albni Vazquez who is her log carrier operator oncologist, he agrees that we should at least temporarily place her on anticoagulation given stroke risk and asked her to follow-up with cardiology. She was discharged in stable condition. I have discussed with the patient there likely diagnosis, aftercare plan, follow-up plans and my usual and customary return precautions. They verbalized understanding of this. - Laboratory Result Diagrams: 06/08/18 13:30 06/08/18 13:30 Laboratory results interpreted by me: 06/08/18 06/08/18 13:30 13:30 RBC 3.35 L Hgb 10.0 L Hct 30.5 L RDW 17.2 H Seg Neutrophils % 79.1 H Lymphocytes % 8.9 L Sodium 145.7 H Chloride 112 H Est GFR (Non-Af Amer) 58 L Calcium 8.0 L - Diagnostic Test Radiology reviewed: Image reviewed, Reports reviewed Discharge - Discharge Clinical Impression: Atrial flutter Qualifiers: Atrial flutter type: unspecified Qualified Code(s): I48.92 - Unspecified atrial flutter Condition: Good Disposition: HOME, SELF-CARE Prescriptions: Rivaroxaban [Xarelto 10 mg Tablet] 10 mg PO DAILY #30 tablet Referrals: CARLO CRAWFORD MD [Primary Care Provider] - Follow up as needed LUIS SMITH MD [ACTIVE STAFF] - Follow up in 1 week
--- NOTE | 2018-06-08 15:05 | RADIOLOGY REPORT (SQ) ---
EXAM DESCRIPTION: CTA CHEST COMPLETED DATE/TIME: 06/08/2018 2:53 pm REASON FOR STUDY: Cancer palpitations new onset a flutter ruleout PE COMPARISON: 06/08/2018, CT chest dated 04/17/2016 TECHNIQUE: CT scan of the chest performed using helical scanning technique with dynamic intravenous contrast injection. Images reviewed with lung, soft tissue and bone windows. Reconstructed coronal and sagittal MPR images reviewed. Additional 3 dimensional post-processing performed to develop Maximal Intensity Projection images (HI P). All images stored on PACS. All CT scanners at this facility use dose modulation, iterative reconstruction, and/or weight based d osing when appropriate to reduce radiation dose to as low as reasonably achievable (ALARA). [facility]: Dose Right [facility]: CareDose [facility]: Dose Right [facility]: Teradose 4D [facility]: [employer] CONTRAST TYPE AND DOSE: contrast/concentration: Isovue 350.00 mg/ml; Total Contrast Delivered: 81.0 ml; Total Saline Delivered: 90.0 ml Contrast bolus optimized for the pulmonary arteries. Not diagnostic for the aorta. RENAL FUNCTION: BUN 19, creatinine 0.94 RADIATION DOSE: CT Rad equipment meets quality standard of care and radiation dose reduction techniq ues were employed. CTDIvol: 23.4 - 24.4 mGy. DLP: 945 mGy-cm. . LIMITATIONS: None. FINDINGS: LUNGS AND PLEURA: Areas of subpleural airspace disease and pleural thickening are again no dee dee. This is increased suspicion the periphery of the right upper lobe. This may be related to ther apy. Clinical correlation is needed. Subpleural fibrosis anteriorly on the left is grossly unchange d. Occasional small pulmonary nodule is noted these are nonspecific AORTA AND GREAT VESSELS: No aneurysm. Contrast bolus not optimized for the aorta. HEART: No pericardial effusion. No significant coronary artery calcifications. PULMONARY ARTERIES: No emboli visualized in the main pulmonary arteries or the segmental branches. HILAR AND MEDIASTINAL STRUCTURES: No identified masses or abnormal nodes. HARDWARE: None in the chest. UPPER ABDOMEN: There is fullness in the left adrenal gland which is unchanged and most likely seconda ry to hyperplasia. IVC filter is in place. THYROID AND OTHER SOFT TISSUES: Fullness in the left thyroid gland most likely related to goiter. BONES: No acute or significant finding. 3D MIPS: Confirm above findings. OTHER: No other significant finding. IMPRESSION: 1. No pulmonary emboli. 2. Areas of subpleural airspace disease most likely fibrosis as described. Small indeterminate pulm onary nodules 2 to 3 in number. Not significantly changed from prior CT done in 2016. COMMENT: Quality ID # [id number]: Final reports with documentation of one or more dose reduction techniques (e.g., Automated exposure control, adjustment of the mA and/or kV according to patient size, use of iterative reconstruction technique) TECHNICAL DOCUMENTATION: JOB ID: [id number] [email or web address]- All Rights Reserved Reading location - IP/workstation name: [email or web address]
--- NOTE | 2018-06-08 17:53 | EKG REPORT ---
SEVERITY:- NORMAL ECG - SINUS RHYTHM : Confirmed by: Elena Bean MD 08-Jun-2018 17:52:16
[2018-06-08] MEDS ORDERED: IPRATROPIUM/ALBUTEROL 0.5-2.5 MG/3 ML AMPUL NEB PRN (18:59)
[2018-06-08] MEDS ORDERED: (PENDING PHARMACY ID) (Levocetirizine Dihydrochloride [24hr Allergy Relief] 5 MG) PO SCH (19:00)
[2018-06-08] MEDS ORDERED: (PENDING PHARMACY ID) (Fluticasone/Vilanterol [Breo Ellipta 200-25 Mcg Inh] 1 EACH) IH SCH (19:00)
[2018-06-08 19:53] LABS: FREE T4 (FREE THYROXINE) 0.86 ng/dL (0.78-2.19)
[2018-06-08 20:00] LABS: LIPASE 84.7 U/L (23-300); PHOSPHORUS 3.2 mg/dL (2.5-4.5)
[2018-06-08 20:07] LABS: THYROID STIMULATING HORMONE 1.26 uIU/mL (0.47-4.68)
[2018-06-08 20:10] LABS: CREATINE KINASE MB 0.57 ng/mL (<4.55)
[2018-06-08 20:16] LABS: TROPONIN I < 0.012 ng/mL
[2018-06-08] MEDS ORDERED: ONDANSETRON 4 MG TAB.RAPDIS PO PRN (20:38)
[2018-06-08] MEDS: OXYCODONE HCL IR 5 MG TABLET PO PRN (21:13)
[2018-06-08] MEDS: APIXABAN 5 MG TABLET PO SCH (21:13)
[2018-06-08] MEDS: GABAPENTIN 300 MG CAPSULE PO SCH (21:13)
[2018-06-09] MEDS ORDERED: OXYCODONE HCL IR 5 MG TABLET PO PRN
[2018-06-09 01:18] LABS: ABSOLUTE EOSINOPHILS # (AUTO) 0.3 10^3/uL (0.0-0.6); ABSOLUTE LYMPHOCYTES (AUTO) 0.6 10^3/uL (0.5-4.7); ABSOLUTE MONOCYTES (AUTO) 0.4 10^3/uL (0.1-1.4); ABSOLUTE NEUT (AUTO) 3.6 10^3/uL (1.7-8.2); BASOPHILS % (AUTO) 0.4 % (0-2); EOSINOPHILS % (AUTO) 5.4 % (0-6); HEMATOCRIT 28.9 % (36.0-47.0); HEMOGLOBIN 9.5 g/dL (12.0-15.5); LYMPHOCYTES % (AUTO) 11.7 % (13-45); MEAN CORPUSCULAR HEMOGLOBIN 29.7 pg (27.0-33.4); MEAN CORPUSCULAR HGB CONC 32.7 g/dL (32.0-36.0); MEAN CORPUSCULAR VOLUME 91 fl (80-97); MONOCYTES % (AUTO) 7.3 % (3-13); PLATELET COUNT 192 10^3/uL (150-450); RED BLOOD COUNT 3.19 10^6/uL (3.72-5.28); RED CELL DISTRIBUTION WIDTH 17.8 % (11.5-14.0); SEGMENTED NEUTROPHILS % (AUTO) 75.2 % (42-78); TOTAL CELLS COUNTED % (AUTO) 100 %; WHITE BLOOD COUNT 4.8 10^3/uL (4.0-10.5)
[2018-06-09 01:39] LABS: ALANINE AMINOTRANSFERASE 23 U/L (9-52); ALKALINE PHOSPHATASE 75 U/L (38-126); ANION GAP 6 (5-19); ASPARTATE AMINO TRANSFERASE 15 U/L (14-36); BILIRUBIN,DIRECT 0.1 mg/dL (0.0-0.4); BILIRUBIN,TOTAL 0.2 mg/dL (0.2-1.3); BLOOD UREA NITROGEN 20 mg/dL (7-20); CALCIUM 8.3 mg/dL (8.4-10.2); CARBON DIOXIDE 29 mmol/L (22-30); CHLORIDE 105 mmol/L (98-107); CHOLESTEROL 136.04 mg/dL (0-200); GLUCOSE 112 mg/dL (75-110); POTASSIUM 4.1 mmol/L (3.6-5.0); SODIUM 139.5 mmol/L (137-145); TOTAL PROTEIN 5.1 g/dL (6.3-8.2); TRIGLYCERIDES 76 mg/dL (<150)
[2018-06-09 01:45] LABS: CREATINE KINASE MB 0.49 ng/mL (<4.55)
[2018-06-09 01:50] LABS: DIRECT LDL 67 mg/dL (<100)
[2018-06-09 01:53] LABS: TROPONIN I < 0.012 ng/mL
[2018-06-09] MEDS: OXYCODONE HCL IR 5 MG TABLET PO PRN ×3 (08:12→21:35)
[2018-06-09 08:25] LABS: CREATINE KINASE MB 0.38 ng/mL (<4.55)
[2018-06-09 08:30] LABS: TROPONIN I < 0.012 ng/mL
[2018-06-09] MEDS: APIXABAN 5 MG TABLET PO SCH ×2 (09:49→17:24)
[2018-06-09] MEDS: CETIRIZINE 5 MG TABLET PO SCH (09:49)
[2018-06-09] MEDS: GABAPENTIN 300 MG CAPSULE PO SCH ×4 (09:49→21:35)
[2018-06-09] MEDS: LETROZOLE 2.5 MG TABLET PO SCH (09:49)
[2018-06-09] MEDS: CITALOPRAM HYDROBROMIDE 20 MG TABLET PO SCH (09:49)
[2018-06-09] MEDS: ATORVASTATIN CALCIUM 20 MG TABLET PO SCH (09:49)
[2018-06-09 14:08] LABS: URINE AMPHETAMINES SCREEN NEGATIVE; URINE BARBITURATES SCREEN NEGATIVE; URINE BENZODIAZEPINES SCREEN NEGATIVE; URINE COCAINE SCREEN NEGATIVE; URINE MARIJUANA (THC) SCREEN NEGATIVE; URINE METHADONE SCREEN NEGATIVE; URINE PHENCYCLIDINE SCREEN NEGATIVE
--- NOTE | 2018-06-09 19:41 | PDOC H&P ---
History of Present Illness Admission Date/PCP: 06/08/18 16:44 CARLO CRAWFORD MD History of Present Illness: RICK ROMANO is a 72 year old female,She came to the emergency room for evaluation of palpitation, it seems that she was diagnosed with atrial flutter with 2-1 block, she was given adenosine in the emergency room, she was converted to sinus rhythm. In the emergency room CTA chest was done, it demonstrated areas of subpleural airspace disease, pleural thickening there was no pulmonary emboli visualized in the main pulmonary arteries or the segmental branches., She was found to have mild hypocalcemia, the ED physician stated that she was going to discharge the patient home but the patient was symptomatic with palpitation, she refuses to go home because she was afraid she may also experience the same episode of palpitation that brought her out to the ER to start with. She has multiple comorbid conditions including chronic obstructive pulmonary disease, malignant neoplasm of the breast, rheumatoid arthritis, type 2 diabetes Past Medical History Cardiac Medical History: Reports: Hyperlipidema, Hypertension Pulmonary Medical History: Reports: Asthma, Chronic Obstructive Pulmonary Disease (COPD) Endocrine Medical History: Reports: Diabetes Mellitus Type 2 Malignancy Medical History: Reports: Breast Cancer - Left GI Medical History: Reports: Gastroesophageal Reflux Disease Musculoskeltal Medical History: Reports: Arthritis - RA, OA, DEGENERATIVE arthritis Psychiatric Medical History: Reports: Depression Hematology: Denies: Anemia Past Surgical History Past Surgical History: Reports: Gastric Bypass Surgery - Gastric sleeve, Mastectomy - double, Orthopedic Surgery - right shoulder, Bilat Knee replacement, bilat feet Social History Smoking Status: Former Smoker Cigarettes Packs Per Day: 3 Number of Years Smokin Frequency of Alcohol Use: None Hx Recreational Drug Use: No Drugs: None Hx Prescription Drug Abuse: No Family History Family History: Reviewed & Not Pertinent Parental Family History Reviewed: Yes Children Family History Reviewed: Yes Sibling(s) Family History Reviewed.: Yes Medication/Allergy Home Medications: Atorvastatin Calcium [Lipitor] 20 mg PO DAILY 09/01/14 Metformin HCl [Glucophage] 1,000 mg PO BID 01/17/15 Gabapentin 300 mg PO TID 09/23/17 Letrozole 2.5 mg PO DAILY 09/23/17 Citalopram Hydrobromide [Celexa 20 mg Tablet] 20 mg PO DAILY 12/17/18 Levocetirizine Dihydrochloride [24Hr Allergy Relief] 5 mg PO QPM 04/12/18 Albuterol Sulfate [Proair HFA Inhalation Aerosol 8.5 gm MDI] 2 puff IH Q4H PRN #1 mdi 05/06/18 Fluticasone/Vilanterol [Breo Ellipta 200-25 Mcg INH] 1 each IH DAILY #1 blst.w.dev 05/06/18 Gabapentin [Neurontin 300 mg Capsule] 600 mg PO QHS 06/08/18 Methotrexate Sodium [Rheumatrex 2.5 mg Tablet] 7.5 mg PO Q7D 06/08/18 Ondansetron HCl [Zofran 4 mg Tablet] 1 tab PO Q4H PRN 06/08/18 Oxycodone HCl [Oxycodone HCl 10 MG Tablet] 10 mg PO Q6HP PRN 06/08/18 Tramadol HCl [Ultram 50 mg Tablet] 50 mg PO Q8HP PRN 06/08/18 Allergies/Adverse Reactions: No Known Allergies Allergy (Verified 05/06/18 16:30) Review of Systems Constitutional: PRESENT: anorexia, fatigue, headache(s) Eyes: ABSENT: visual disturbances Ears: ABSENT: hearing changes Cardiovascular: PRESENT: palpitations. ABSENT: chest pain, dyspnea on exertion, edema, orthropnea Respiratory: ABSENT: cough, hemoptysis Gastrointestinal: ABSENT: abdominal pain, constipation, diarrhea, hematemesis, hematochezia, nausea, vomiting Genitourinary: ABSENT: dysuria, hematuria Musculoskeletal: ABSENT: joint swelling Integumentary: ABSENT: rash, wounds Neurological: ABSENT: abnormal gait, abnormal speech, confusion, dizziness, foca l weakness, syncope Psychiatric: ABSENT: anxiety, depression, homidical ideation, suicidal ideation Endocrine: ABSENT: cold intolerance, heat intolerance, menstrual abnormalities, polydipsia, polyuria Hematologic/Lymphatic: ABSENT: easy bleeding, easy bruising, lymphadenopathy Physical Exam Vital Signs: Temp Pulse Resp BP Pulse Ox 99.2 F 76 18 176/74 H 96 06/09/18 14:58 06/09/18 14:58 06/09/18 14:58 06/09/18 14:58 06/09/18 14:58 Intake & Output 06/08/18 06/09/18 06/10/18 06:59 06:59 06:59 Intake Total 550 Output Total 250 Balance 550 -250 Weight 95.1 kg General appearance: PRESENT: no acute distress Head exam: PRESENT: atraumatic, normocephalic Eye exam: PRESENT: PERRLA Mouth exam: PRESENT: moist Neck exam: PRESENT: full ROM Respiratory exam: PRESENT: clear to auscultation alfonso Cardiovascular exam: PRESENT: RRR, +S1, +S2 Vascular exam: PRESENT: normal capillary refill GI/Abdominal exam: PRESENT: normal bowel sounds, soft Rectal exam: PRESENT: deferred Neurological exam: PRESENT: alert, CN II-XII grossly intact Psychiatric exam: PRESENT: appropriate affect, normal mood Skin exam: PRESENT: dry, intact, warm Results Laboratory Results: 06/09/18 01:00 06/09/18 01:00 06/08/18 06/08/18 06/08/18 13:30 19:25 19:25 WBC RBC Hgb Hct MCV MCH MCHC RDW Plt Count Seg Neutrophils % Lymphocytes % Monocytes % Eosinophils % Basophils % Absolute Neutrophils Absolute Lymphocytes Absolute Monocytes Absolute Eosinophils Absolute Basophils Sodium Potassium Chloride Carbon Dioxide Anion Gap BUN Creatinine Est GFR ( Amer) Est GFR (Non-Af Amer) Glucose Calcium Phosphorus 3.2 Magnesium 2.0 Total Bilirubin AST ALT Alkaline Phosphatase Ammonia < 8.7 L Total Protein Albumin Triglycerides Cholesterol LDL Cholesterol Direct VLDL Cholesterol HDL Cholesterol Amylase 52 Lipase 84.7 TSH 1.26 Free T4 0.86 06/09/18 06/09/18 01:00 01:00 WBC 4.8 RBC 3.19 L Hgb 9.5 L Hct 28.9 L MCV 91 MCH 29.7 MCHC 32.7 RDW 17.8 H Plt Count 192 Seg Neutrophils % 75.2 Lymphocytes % 11.7 L Monocytes % 7.3 Eosinophils % 5.4 Basophils % 0.4 Absolute Neutrophils 3.6 Absolute Lymphocytes 0.6 Absolute Monocytes 0.4 Absolute Eosinophils 0.3 Absolute Basophils 0.0 Sodium 139.5 Potassium 4.1 Chloride 105 Carbon Dioxide 29 Anion Gap 6 BUN 20 Creatinine 0.87 Est GFR ( Amer) > 60 Est GFR (Non-Af Amer) > 60 Glucose 112 H Calcium 8.3 L Phosphorus Magnesium Total Bilirubin 0.2 AST 15 ALT 23 Alkaline Phosphatase 75 Ammonia Total Protein 5.1 L Albumin 3.0 L Triglycerides 76 Cholesterol 136.04 LDL Cholesterol Direct 67 VLDL Cholesterol 15.0 HDL Cholesterol 55 Amylase Lipase TSH Free T4 06/08/18 06/08/18 06/08/18 13:30 19:25 19:25 Creatine Kinase 24 L CK-MB (CK-2) Troponin I < 0.012 NT-Pro-B Natriuret Pep 786 06/08/18 06/09/18 06/09/18 19:25 01:00 01:00 Creatine Kinase < 20 L CK-MB (CK-2) 0.57 0.49 Troponin I < 0.012 < 0.012 NT-Pro-B Natriuret Pep 06/09/18 06/09/18 07:18 07:18 Creatine Kinase 21 L CK-MB (CK-2) 0.38 Troponin I < 0.012 NT-Pro-B Natriuret Pep Impressions: Chest X-Ray 06/08/18 13:14 IMPRESSION: 1. No significant interval changes since the prior examination dated 05/06/2018. Stable focal pleural thickening in the right apex -right upper lobe. Chest/Abdomen CTA 06/08/18 13:17 IMPRESSION: 1. No pulmonary emboli. 2. Areas of subpleural airspace disease most likely fibrosis as described. Small indeterminate pulmonary nodules 2 to 3 in number. Not significantly changed from prior CT done in 2015. Assessment & Plan - Diagnosis (1) Atrial flutter Qualifiers: Atrial flutter type: unspecified Qualified Code(s): I48.92 - Unspecified atrial flutter Is this a current diagnosis for this admission?: Yes Plan: Patient is not presently in atrial flutter, 2D echo to be ordered (2) Chronic obstructive pulmonary disease Qualifiers: COPD type: unspecified COPD Qualified Code(s): J44.9 - Chronic obstructive pulmonary disease, unspecified Is this a current diagnosis for this admission?: Yes (3) Malignant neoplasm of breast Qualifiers: Breast location: unspecified site of breast Estrogen receptor status: unspecified Patient sex: female Laterality: unspecified laterality Qualified Code(s): C50.919 - Malignant neoplasm of unspecified site of unspecified female breast Is this a current diagnosis for this admission?: Yes
--- NOTE | 2018-06-09 20:22 | PDOC PROGRESS REPORT ---
Subjective Progress Note for:: 06/09/18 Subjective:: Patient seen by the bedside, she has multiple complaints including headache, generalized body aches, she was admitted for evaluation and management of atrial flutter Reason For Visit: AFLUTTER WITH RVR, BREAST CANCER Physical Exam Vital Signs: Temp Pulse Resp BP Pulse Ox 99.2 F 76 18 176/74 H 96 06/09/18 14:58 06/09/18 14:58 06/09/18 14:58 06/09/18 14:58 06/09/18 14:58 Intake & Output 06/08/18 06/09/18 06/10/18 06:59 06:59 06:59 Intake Total 550 Output Total 250 Balance 550 -250 Weight 95.1 kg General appearance: PRESENT: no acute distress Eye exam: PRESENT: PERRLA Cardiovascular exam: PRESENT: +S1, +S2 GI/Abdominal exam: PRESENT: soft Neurological exam: PRESENT: alert Results Laboratory Results: 06/09/18 01:00 06/09/18 01:00 06/09/18 06/09/18 01:00 01:00 WBC 4.8 RBC 3.19 L Hgb 9.5 L Hct 28.9 L MCV 91 MCH 29.7 MCHC 32.7 RDW 17.8 H Plt Count 192 Seg Neutrophils % 75.2 Lymphocytes % 11.7 L Monocytes % 7.3 Eosinophils % 5.4 Basophils % 0.4 Absolute Neutrophils 3.6 Absolute Lymphocytes 0.6 Absolute Monocytes 0.4 Absolute Eosinophils 0.3 Absolute Basophils 0.0 Sodium 139.5 Potassium 4.1 Chloride 105 Carbon Dioxide 29 Anion Gap 6 BUN 20 Creatinine 0.87 Est GFR ( Amer) > 60 Est GFR (Non-Af Amer) > 60 Glucose 112 H Calcium 8.3 L Total Bilirubin 0.2 AST 15 ALT 23 Alkaline Phosphatase 75 Total Protein 5.1 L Albumin 3.0 L Triglycerides 76 Cholesterol 136.04 LDL Cholesterol Direct 67 VLDL Cholesterol 15.0 HDL Cholesterol 55 06/08/18 06/08/18 06/08/18 13:30 19:25 19:25 Creatine Kinase 24 L CK-MB (CK-2) Troponin I < 0.012 NT-Pro-B Natriuret Pep 786 06/08/18 06/09/18 06/09/18 19:25 01:00 01:00 Creatine Kinase < 20 L CK-MB (CK-2) 0.57 0.49 Troponin I < 0.012 < 0.012 NT-Pro-B Natriuret Pep 06/09/18 06/09/18 07:18 07:18 Creatine Kinase 21 L CK-MB (CK-2) 0.38 Troponin I < 0.012 NT-Pro-B Natriuret Pep Impressions: Chest X-Ray 06/08/18 13:14 IMPRESSION: 1. No significant interval changes since the prior examination dated 05/06/2018. Stable focal pleural thickening in the right apex -right upper lobe. Chest/Abdomen CTA 06/08/18 13:17 IMPRESSION: 1. No pulmonary emboli. 2. Areas of subpleural airspace disease most likely fibrosis as described. Small indeterminate pulmonary nodules 2 to 3 in number. Not significantly changed from prior CT done in 2015. Assessment & Plan - Diagnosis (1) Atrial flutter Qualifiers: Atrial flutter type: unspecified Qualified Code(s): I48.92 - Unspecified atrial flutter Is this a current diagnosis for this admission?: Yes (2) Chronic obstructive pulmonary disease Qualifiers: COPD type: unspecified COPD Qualified Code(s): J44.9 - Chronic obstructive pulmonary disease, unspecified Is this a current diagnosis for this admission?: Yes (3) Malignant neoplasm of breast Qualifiers: Breast location: unspecified site of breast Estrogen receptor status: unspecified Patient sex: female Laterality: unspecified laterality Qualified Code(s): C50.919 - Malignant neoplasm of unspecified site of unspecified female breast Is this a current diagnosis for this admission?: Yes
[2018-06-10 05:57] LABS: ABSOLUTE EOSINOPHILS # (AUTO) 0.3 10^3/uL (0.0-0.6); ABSOLUTE LYMPHOCYTES (AUTO) 0.6 10^3/uL (0.5-4.7); ABSOLUTE MONOCYTES (AUTO) 0.4 10^3/uL (0.1-1.4); ABSOLUTE NEUT (AUTO) 3.2 10^3/uL (1.7-8.2); BASOPHILS % (AUTO) 0.5 % (0-2); EOSINOPHILS % (AUTO) 6.6 % (0-6); HEMATOCRIT 30.1 % (36.0-47.0); HEMOGLOBIN 10.1 g/dL (12.0-15.5); LYMPHOCYTES % (AUTO) 13.1 % (13-45); MEAN CORPUSCULAR HEMOGLOBIN 29.9 pg (27.0-33.4); MEAN CORPUSCULAR HGB CONC 33.5 g/dL (32.0-36.0); MEAN CORPUSCULAR VOLUME 89 fl (80-97); MONOCYTES % (AUTO) 8.4 % (3-13); PLATELET COUNT 196 10^3/uL (150-450); RED BLOOD COUNT 3.37 10^6/uL (3.72-5.28); RED CELL DISTRIBUTION WIDTH 17.3 % (11.5-14.0); SEGMENTED NEUTROPHILS % (AUTO) 71.4 % (42-78); TOTAL CELLS COUNTED % (AUTO) 100 %; WHITE BLOOD COUNT 4.5 10^3/uL (4.0-10.5)
[2018-06-10 06:14] LABS: ALANINE AMINOTRANSFERASE 22 U/L (9-52); ALBUMIN 2.9 g/dL (3.5-5.0); ALKALINE PHOSPHATASE 68 U/L (38-126); ASPARTATE AMINO TRANSFERASE 16 U/L (14-36); BILIRUBIN,DIRECT 0.2 mg/dL (0.0-0.4); BILIRUBIN,TOTAL 0.3 mg/dL (0.2-1.3); BLOOD UREA NITROGEN 21 mg/dL (7-20); CALCIUM 8.4 mg/dL (8.4-10.2); GLUCOSE 140 mg/dL (75-110); POTASSIUM 4.2 mmol/L (3.6-5.0); TOTAL PROTEIN 5.4 g/dL (6.3-8.2)
[2018-06-10 06:19] LABS: ANION GAP 6 (5-19); CARBON DIOXIDE 28 mmol/L (22-30); CHLORIDE 105 mmol/L (98-107); SODIUM 138.7 mmol/L (137-145)
[2018-06-10] MEDS: GABAPENTIN 300 MG CAPSULE PO SCH ×4 (09:45→21:36)
[2018-06-10] MEDS: CITALOPRAM HYDROBROMIDE 20 MG TABLET PO SCH (09:46)
[2018-06-10] MEDS: ATORVASTATIN CALCIUM 20 MG TABLET PO SCH (09:46)
[2018-06-10] MEDS: APIXABAN 5 MG TABLET PO SCH ×2 (09:46→17:55)
[2018-06-10] MEDS: CETIRIZINE 5 MG TABLET PO SCH (09:46)
[2018-06-10] MEDS: LETROZOLE 2.5 MG TABLET PO SCH (09:46)
[2018-06-10] MEDS: OXYCODONE HCL IR 5 MG TABLET PO PRN ×3 (09:49→21:37)
--- NOTE | 2018-06-10 19:45 | PDOC PROGRESS REPORT ---
Subjective Progress Note for:: 06/10/18 Subjective:: Patient was admitted when she presented with atrial flutter associated with rapid ventricular response, she is very unstable with abnormal gait and balance 2D echo was done it demonstrated normal left ventricular wall thickness the estimated ejection fraction of left ventricle was more than 60% the left atrium is mildly dilated there is a moderate amount of tricuspid regurgitation with moderate pulmonary hypertension the RVSP is 57 mmHg. There is moderate pulmon sophia hypertension, patient is symptomatic the etiology of the pulmonary hypertension is most likely from chronic lung disease partly due to COPD Reason For Visit: AFLUTTER WITH RVR, BREAST CANCER Physical Exam Vital Signs: Temp Pulse Resp BP Pulse Ox 98.0 F 62 18 137/55 H 97 06/10/18 14:50 06/10/18 14:50 06/10/18 14:50 06/10/18 14:50 06/10/18 14:50 Intake & Output 06/09/18 06/10/18 06/11/18 06:59 06:59 06:59 Intake Total 550 986 Output Total 250 400 Balance 550 -250 586 Weight 95.1 kg 94.9 kg General appearance: PRESENT: mild distress Eye exam: PRESENT: PERRLA Respiratory exam: PRESENT: rhonchi Cardiovascular exam: PRESENT: +S1, +S2 GI/Abdominal exam: PRESENT: soft Neurological exam: PRESENT: alert Results Laboratory Results: 06/10/18 05:34 06/10/18 05:34 06/10/18 06/10/18 05:34 05:34 WBC 4.5 RBC 3.37 L Hgb 10.1 L Hct 30.1 L MCV 89 MCH 29.9 MCHC 33.5 RDW 17.3 H Plt Count 196 Seg Neutrophils % 71.4 Lymphocytes % 13.1 Monocytes % 8.4 Eosinophils % 6.6 H Basophils % 0.5 Absolute Neutrophils 3.2 Absolute Lymphocytes 0.6 Absolute Monocytes 0.4 Absolute Eosinophils 0.3 Absolute Basophils 0.0 Sodium 138.7 Potassium 4.2 Chloride 105 Carbon Dioxide 28 Anion Gap 6 BUN 21 H Creatinine 0.88 Est GFR ( Amer) > 60 Est GFR (Non-Af Amer) > 60 Glucose 140 H Calcium 8.4 Total Bilirubin 0.3 AST 16 ALT 22 Alkaline Phosphatase 68 Total Protein 5.4 L Albumin 2.9 L 06/08/18 06/08/18 06/08/18 13:30 19:25 19:25 Creatine Kinase 24 L CK-MB (CK-2) Troponin I < 0.012 NT-Pro-B Natriuret Pep 786 06/08/18 06/09/18 06/09/18 19:25 01:00 01:00 Creatine Kinase < 20 L CK-MB (CK-2) 0.57 0.49 Troponin I < 0.012 < 0.012 NT-Pro-B Natriuret Pep 06/09/18 06/09/18 07:18 07:18 Creatine Kinase 21 L CK-MB (CK-2) 0.38 Troponin I < 0.012 NT-Pro-B Natriuret Pep Impressions: Chest X-Ray 06/08/18 13:14 IMPRESSION: 1. No significant interval changes since the prior examination dated 05/06/2018. Stable focal pleural thickening in the right apex -right upper lobe. Chest/Abdomen CTA 06/08/18 13:17 IMPRESSION: 1. No pulmonary emboli. 2. Areas of subpleural airspace disease most likely fibrosis as described. Small indeterminate pulmonary nodules 2 to 3 in number. Not significantly changed from prior CT done in 2015. Assessment & Plan - Diagnosis (1) Atrial flutter Qualifiers: Atrial flutter type: unspecified Qualified Code(s): I48.92 - Unspecified atrial flutter Is this a current diagnosis for this admission?: Yes (2) Chronic obstructive pulmonary disease Qualifiers: COPD type: unspecified COPD Qualified Code(s): J44.9 - Chronic obstructive pulmonary disease, unspecified Is this a current diagnosis for this admission?: Yes (3) Malignant neoplasm of breast Qualifiers: Breast location: unspecified site of breast Estrogen receptor status: unspecified Patient sex: female Laterality: unspecified laterality Qualified Code(s): C50.919 - Malignant neoplasm of unspecified site of unspecified female breast Is this a current diagnosis for this admission?: Yes (4) Pulmonary hypertension Is this a current diagnosis for this admission?: Yes Plan: She has symptomatic pulmonary hypertension, may benefit from oxygen, patient not safe for discharge home, she has no place to go she lost housing she may benefit from rehab and subsequently placement in assisted living facility
--- NOTE | 2018-06-11 00:10 | XCELERA REPORT ---
[address] [address] Transthoracic Echocardiogram Report Name: RICK ROMANO Age: 72 yrs Gender: Female : 1945 Patient Status: Inpatient Patient Location: [address] [place] [address] Study Date: 06/10/2018 10:13 AM Height: 67 in Weight: 209 lb BSA: 2.1 m2 Procedure: A two-dimensional transthoracic echocardiogram with color flow and Doppler was performed. Study Quality: Fair. Reason For Study: atrial flutter History: atrial flutter. Ordering Physician: CARLO CRAWFORD Performed By: Iliana Rivers Interpretation Summary A two-dimensional transthoracic echocardiogram with color flow and Doppler was performed. The left ventricle is normal in size. There is normal left ventricular wall thickness. LV EF is > than 60% The left ventricular ejection fraction is within normal limits. LV diastolic function not assessed. The left ventricular wall motion is normal. There is no thrombus. There is no ventricular septal defect visualized. The right ventricle is normal in size and function. The right atrium is normal. The left atrium is mildly dilated. The interatrial septum is intact with no evidence for an atrial septal defect. There is no evidence of mitral valve prolapse. There is no vegetation seen on the mitral valve. There is no mitral valve stenosis. There is a trace amount of mitral regurgitation There is no aortic valvular vegetation. There is no aortic valve stenosis There is aortic sclerosis without aortic stenosis. There is no LVOT obstruction. No aortic regurgitation is present. There is no tricuspid stenosis. There is a moderate amount of tricuspid regurgitation There is moderate pulmonary hypertension by echo RVSP is 52 to 57 mm of Hg , with RA mean of 5 to 10. There is no pulmonic valvular stenosis. There is no pulmonic valvular regurgitation. The aortic root is normal size. The inferior vena cava appeared normal and decreased < 50% with respiration (RAP 10-15 mmHg) There is no pericardial effusion. MMode/2D Measurements & Calculations RVDd: 2.1 cm LVIDd: 4.7 cm FS: 33.1 % Ao root diam: 2.4 cm IVSd: 1.1 cm LVIDs: 3.1 cm EDV(Teich): Ao root area: LVPWd: 1.0 cm 100.8 ml 4.4 cm2 ESV(Teich): 38.6 mlLA dimension: 4.1 cm EF(Teich): 61.7 % LVLd ap4: 7.9 cm SV(MOD-sp4): EDV(MOD-sp4): 50.0 ml 86.0 ml LVLs ap4: 6.0 cm ESV(MOD-sp4): 36.0 ml EF(MOD-sp4): 58.1 % Doppler Measurements & Calculations MV E max yarelis: MV P1/2t max yarelis: Ao V2 max: LV V1 max P.2 cm/sec 102.7 cm/sec 184.0 cm/sec 6.0 mmHg MV A max yarelis: MV P1/2t: 64.5 msec Ao max PG: LV V1 max: 91.3 cm/sec MVA(P1/2t): 3.4 cm2 13.5 mmHg 122.9 cm/sec MV E/A: 1.1 MV dec slope: 466.5 cm/sec2 MV dec time: 0.19 sec PA V2 max: TR max yarelis: MV P1/2t-pr_phl: 78.5 cm/sec 342.1 cm/sec 64.5 msec PA max P.5 mmHgTR max P.8 mmHg Left Ventricle The left ventricle is normal in size. There is normal left ventricular wall thickness. LV EF is > than 60%. The left ventricular ejection fraction is within normal limits. LV diastolic function not assessed. The left ventricular wall motion is normal. There is no thrombus. There is no ventricular septal defect visualized. Right Ventricle The right ventricle is normal in size and function. Atria The right atrium is normal. The left atrium is mildly dilated. The interatrial septum is intact with no evidence for an atrial septal defect. Mitral Valve There is mild mitral leaflet calcification. There is no evidence of mitral valve prolapse. There is no vegetation seen on the mitral valve. There is no mitral valve stenosis. There is a trace amount of mitral regurgitation. Aortic Valve There is no aortic valvular vegetation. There is no aortic valve stenosis. There is aortic sclerosis without aortic stenosis. There is no LVOT obstruction. No aortic regurgitation is present. Tricuspid Valve There is no tricuspid stenosis. There is a moderate amount of tricuspid regurgitation. There is moderate pulmonary hypertension by echo. RVSP is 52 to 57 mm of Hg , with RA mean of 5 to 10. Pulmonic Valve There is no pulmonic valvular stenosis. There is no pulmonic valvular regurgitation. Great Vessels The aortic root is normal size. The inferior vena cava appeared normal and decreased < 50% with respiration (RAP 10-15 mmHg). Effusions There is no pericardial effusion. : CARLO CRAWFORD > Elena Bean
[2018-06-11 05:43] LABS: ABSOLUTE EOSINOPHILS # (AUTO) 0.3 10^3/uL (0.0-0.6); ABSOLUTE LYMPHOCYTES (AUTO) 0.6 10^3/uL (0.5-4.7); ABSOLUTE MONOCYTES (AUTO) 0.4 10^3/uL (0.1-1.4); ABSOLUTE NEUT (AUTO) 3.7 10^3/uL (1.7-8.2); BASOPHILS % (AUTO) 0.8 % (0-2); HEMATOCRIT 32.5 % (36.0-47.0); HEMOGLOBIN 10.8 g/dL (12.0-15.5); LYMPHOCYTES % (AUTO) 11.4 % (13-45); MEAN CORPUSCULAR HEMOGLOBIN 29.3 pg (27.0-33.4); MEAN CORPUSCULAR HGB CONC 33.1 g/dL (32.0-36.0); MEAN CORPUSCULAR VOLUME 89 fl (80-97); MONOCYTES % (AUTO) 8.3 % (3-13); PLATELET COUNT 219 10^3/uL (150-450); RED BLOOD COUNT 3.67 10^6/uL (3.72-5.28); RED CELL DISTRIBUTION WIDTH 17.8 % (11.5-14.0); SEGMENTED NEUTROPHILS % (AUTO) 73.5 % (42-78); TOTAL CELLS COUNTED % (AUTO) 100 %
[2018-06-11] MEDS: OXYCODONE HCL IR 5 MG TABLET PO PRN ×3 (05:55→19:38)
[2018-06-11 06:04] LABS: ALANINE AMINOTRANSFERASE 19 U/L (9-52); ALKALINE PHOSPHATASE 70 U/L (38-126); ASPARTATE AMINO TRANSFERASE 16 U/L (14-36); BILIRUBIN,DIRECT 0.2 mg/dL (0.0-0.4); BILIRUBIN,TOTAL 0.3 mg/dL (0.2-1.3); BLOOD UREA NITROGEN 25 mg/dL (7-20); CALCIUM 8.4 mg/dL (8.4-10.2); CARBON DIOXIDE 29 mmol/L (22-30); CHLORIDE 105 mmol/L (98-107); GLUCOSE 111 mg/dL (75-110); POTASSIUM 4.2 mmol/L (3.6-5.0); TOTAL PROTEIN 5.5 g/dL (6.3-8.2)
[2018-06-11 06:10] LABS: SODIUM 139.4 mmol/L (137-145)
[2018-06-11 06:14] LABS: ANION GAP 5 (5-19)
[2018-06-11] MEDS: CITALOPRAM HYDROBROMIDE 20 MG TABLET PO SCH (09:11)
[2018-06-11] MEDS: LETROZOLE 2.5 MG TABLET PO SCH (09:11)
[2018-06-11] MEDS: APIXABAN 5 MG TABLET PO SCH ×2 (09:11→17:10)
[2018-06-11] MEDS: GABAPENTIN 300 MG CAPSULE PO SCH ×4 (09:11→22:12)
[2018-06-11] MEDS: ATORVASTATIN CALCIUM 20 MG TABLET PO SCH (09:11)
[2018-06-11] MEDS: CETIRIZINE 5 MG TABLET PO SCH (09:11)
--- NOTE | 2018-06-11 19:43 | PDOC PROGRESS REPORT ---
Subjective Progress Note for:: 06/11/18 Subjective:: Patient was admitted when she presented with atrial flutter associated with rapid ventricular response, she is very unstable with abnormal gait and balance 2D echo was done it demonstrated normal left ventricular wall thickness the estimated ejection fraction of left ventricle was more than 60% the left atrium is mildly dilated there is a moderate amount of tricuspid regurgitation with moderate pulmonary hypertension the RVSP is 57 mmHg. There is moderate pulmon sophia hypertension, patient is symptomatic the etiology of the pulmonary hypertension is most likely from chronic lung disease partly due to COPD Reason For Visit: AFLUTTER WITH RVR, BREAST CANCER Physical Exam Vital Signs: Temp Pulse Resp BP Pulse Ox 98.4 F 71 16 130/65 H 94 06/11/18 15:03 06/11/18 15:03 06/11/18 15:03 06/11/18 15:03 06/11/18 15:03 Intake & Output 06/10/18 06/11/18 06/12/18 06:59 06:59 06:59 Intake Total 1186 643 Output Total 250 400 Balance -250 786 643 Weight 94.9 kg 93.4 kg General appearance: PRESENT: mild distress Eye exam: PRESENT: PERRLA Respiratory exam: PRESENT: rales Cardiovascular exam: PRESENT: +S1, systolic murmur GI/Abdominal exam: PRESENT: soft Neurological exam: PRESENT: alert Results Laboratory Results: 06/11/18 05:33 06/11/18 05:33 06/11/18 06/11/18 05:33 05:33 WBC 5.0 RBC 3.67 L Hgb 10.8 L Hct 32.5 L MCV 89 MCH 29.3 MCHC 33.1 RDW 17.8 H Plt Count 219 Seg Neutrophils % 73.5 Lymphocytes % 11.4 L Monocytes % 8.3 Eosinophils % 6.0 Basophils % 0.8 Absolute Neutrophils 3.7 Absolute Lymphocytes 0.6 Absolute Monocytes 0.4 Absolute Eosinophils 0.3 Absolute Basophils 0.0 Sodium 139.4 Potassium 4.2 Chloride 105 Carbon Dioxide 29 Anion Gap 5 BUN 25 H Creatinine 0.97 Est GFR ( Amer) > 60 Est GFR (Non-Af Amer) 56 L Glucose 111 H Calcium 8.4 Total Bilirubin 0.3 AST 16 ALT 19 Alkaline Phosphatase 70 Total Protein 5.5 L Albumin 3.0 L 06/08/18 06/08/18 06/08/18 13:30 19:25 19:25 Creatine Kinase 24 L CK-MB (CK-2) Troponin I < 0.012 NT-Pro-B Natriuret Pep 786 06/08/18 06/09/18 06/09/18 19:25 01:00 01:00 Creatine Kinase < 20 L CK-MB (CK-2) 0.57 0.49 Troponin I < 0.012 < 0.012 NT-Pro-B Natriuret Pep 06/09/18 06/09/18 07:18 07:18 Creatine Kinase 21 L CK-MB (CK-2) 0.38 Troponin I < 0.012 NT-Pro-B Natriuret Pep Impressions: Chest X-Ray 06/08/18 13:14 IMPRESSION: 1. No significant interval changes since the prior examination dated 05/06/2018. Stable focal pleural thickening in the right apex -right upper lobe. Chest/Abdomen CTA 06/08/18 13:17 IMPRESSION: 1. No pulmonary emboli. 2. Areas of subpleural airspace disease most likely fibrosis as described. Small indeterminate pulmonary nodules 2 to 3 in number. Not significantly changed from prior CT done in 2015. Assessment & Plan - Diagnosis (1) Atrial flutter Qualifiers: Atrial flutter type: unspecified Qualified Code(s): I48.92 - Unspecified atrial flutter Is this a current diagnosis for this admission?: Yes Plan: obtain ABG (2) Chronic obstructive pulmonary disease Qualifiers: COPD type: unspecified COPD Qualified Code(s): J44.9 - Chronic obstructive pulmonary disease, unspecified Is this a current diagnosis for this admission?: Yes (3) Malignant neoplasm of breast Qualifiers: Breast location: unspecified site of breast Estrogen receptor status: unspecified Patient sex: female Laterality: unspecified laterality Qu alified Code(s): C50.919 - Malignant neoplasm of unspecified site of unspecified female breast Is this a current diagnosis for this admission?: Yes (4) Pulmonary hypertension Is this a current diagnosis for this admission?: Yes Plan: She has symptomatic pulmonary hypertension, may benefit from oxygen, patient not safe for discharge home, she has no place to go she lost housing she may benefit from rehab and subsequently placement in assisted living facility,get ABG
[2018-06-11 21:42] LABS: ARTERIAL BLOOD BASE EXCESS 2.3 mmol/L; ARTERIAL BLOOD H2CO3 1.23 mmol/L (1.05-1.35); ARTERIAL BLOOD HCO3 26.7 mmol/L (20-24); ARTERIAL BLOOD O2 SATURATION 95.4 % (94-98); ARTERIAL BLOOD PCO2 40.9 mmHg (35-45); ARTERIAL BLOOD PH 7.43 (7.35-7.45); ARTERIAL BLOOD PO2 74.6 mmHg (80-100)
[2018-06-11 21:44] LABS: ARTERIAL BLOOD FIO2 ROOM AIR
[2018-06-11] MEDS: METFORMIN HCL 500 MG TABLET PO SCH (22:11)
[2018-06-12] MEDS: OXYCODONE HCL IR 5 MG TABLET PO PRN ×3 (05:52→18:49)
[2018-06-12] MEDS: CITALOPRAM HYDROBROMIDE 20 MG TABLET PO SCH (09:26)
[2018-06-12] MEDS: APIXABAN 5 MG TABLET PO SCH ×2 (09:26→17:15)
[2018-06-12] MEDS: METFORMIN HCL 500 MG TABLET PO SCH ×2 (09:26→17:15)
[2018-06-12] MEDS: ATORVASTATIN CALCIUM 20 MG TABLET PO SCH (09:26)
[2018-06-12] MEDS: LETROZOLE 2.5 MG TABLET PO SCH (09:26)
[2018-06-12] MEDS: CETIRIZINE 5 MG TABLET PO SCH (09:27)
[2018-06-12] MEDS: GABAPENTIN 300 MG CAPSULE PO SCH ×4 (09:27→22:35)
--- NOTE | 2018-06-12 13:49 | PDOC CONSULTATION ---
Consultation Consult Date: 06/12/18 Consult reason:: atrial flutter History of Present Illness Admission Date/PCP: 06/08/18 16:44 CARLO CRAWFORD MD History of Present Illness: RICK ROMANO is a 72 year old female Breast cancer, COPD, diabetes mellitus, hypertension, hyperlipidemia who was admitted with complaints of palpitations and found to be in atrial flutter with rapid ventricular rate in the ER. According to the notes from the ER physician patient was given adenosine after which she converted to sinus rhythm. Patient was subsequently started on anticoagulation and admitted for further evaluation. Patient seen at bedside and claims that she feels much better since her admission but does get short of breath on exertion. She used to smoke cigarettes but quit many years ago. She denies history of alcohol abuse or any recreational drug use. She denies any previous history of heart disease or any previous palpitations or dizziness or passing out spells. She is single and lives with her daughter. She claims that 1 of her sisters of heart disease. She denies any swelling of her lower extremities or any bleeding per rectum or black stools. Past Medical History Cardiac Medical History: Reports: Hyperlipidema, Hypertension Denies: Coronary Artery Disease, Myocardial Infarction Pulmonary Medical History: Reports: Asthma, Chronic Obstructive Pulmonary Disease (COPD) Denies: Bronchitis, Pneumonia Neurological Medical History: Denies: Seizures Endocrine Medical History: Reports: Diabetes Mellitus Type 2 Malignancy Medical History: Reports: Breast Cancer - Left GI Medical History: Reports: Gastroesophageal Reflux Disease Musculoskeltal Medical History: Reports: Arthritis - RA, OA, DEGENERATIVE arthritis Psychiatric Medical History: Reports: Depression Hematology: Denies: Anemia Past Surgical History Past Surgical History: Reports: Gastric Bypass Surgery - Gastric sleeve, Mastectomy - double, Orthopedic Surgery - right shoulder, Bilat Knee replacement, bilat feet Social History Smoking Status: Former Smoker Cigarettes Packs Per Day: 3 Number of Years Smokin Frequency of Alcohol Use: None Hx Recreational Drug Use: No Drugs: None Hx Prescription Drug Abuse: No Family History Family History: Reviewed & Not Pertinent Parental Family History Reviewed: Yes Children Family History Reviewed: Yes Sibling(s) Family History Reviewed.: Yes Medication/Allergy Home Medications: Atorvastatin Calcium [Lipitor] 20 mg PO DAILY 09/01/14 Metformin HCl [Glucophage] 1,000 mg PO BID 01/17/15 Gabapentin 300 mg PO TID 09/23/17 Letrozole 2.5 mg PO DAILY 09/23/17 Citalopram Hydrobromide [Celexa 20 mg Tablet] 20 mg PO DAILY 04/12/18 Levocetirizine Dihydrochloride [24Hr Allergy Relief] 5 mg PO QPM 04/12/18 Albuterol Sulfate [Proair HFA Inhalation Aerosol 8.5 gm MDI] 2 puff IH Q4H PRN #1 mdi 05/06/18 Fluticasone/Vilanterol [Breo Ellipta 200-25 Mcg INH] 1 each IH DAILY #1 blst.w.dev 05/06/18 Gabapentin [Neurontin 300 mg Capsule] 600 mg PO QHS 06/08/18 Methotrexate Sodium [Rheumatrex 2.5 mg Tablet] 7.5 mg PO Q7D 06/08/18 Ondansetron HCl [Zofran 4 mg Tablet] 1 tab PO Q4H PRN 06/08/18 Oxycodone HCl [Oxycodone HCl 10 MG Tablet] 10 mg PO Q6HP PRN 06/08/18 Tramadol HCl [Ultram 50 mg Tablet] 50 mg PO Q8HP PRN 06/08/18 Allergies/Adverse Reactions: No Known Allergies Allergy (Verified 05/06/18 16:30) Review of Systems Cardiovascular: PRESENT: dyspnea on exertion, palpitations Physical Exam Vital Signs: Temp Pulse Resp BP Pulse Ox 98.0 F 60 18 120/51 L 94 06/12/18 08:07 06/12/18 08:07 06/12/18 08:07 06/12/18 08:07 06/12/18 08:07 Intake & Output 06/11/18 06/12/18 06/13/18 06:59 06:59 06:59 Intake Total 1186 643 Output Total 400 Balance 786 643 Weight 93.4 kg 93.4 kg General appearance: PRESENT: no acute distress Head exam: PRESENT: atraumatic, normocephalic Neck exam: PRESENT: full ROM Respiratory exam: PRESENT: other - Bilateral air entry heard with occasional scattered crepitus. No wheeze heard. Cardiovascular exam: PRESENT: RRR, +S1, +S2 Pulses: PRESENT: normal carotid pulses, normal radial pulses, normal femoral pulses, normal dorsalis pedis pul Neurological exam: PRESENT: alert, awake, oriented to person, oriented to place, oriented to time, oriented to situation Results Laboratory Results: 06/11/18 05:33 06/11/18 05:33 06/11/18 21:25 Carbonic Acid 1.23 HCO3/H2CO3 Ratio 21:1 ABG pH 7.43 ABG pCO2 40.9 ABG pO2 74.6 L ABG HCO3 26.7 H ABG O2 Saturation 95.4 ABG Base Excess 2.3 FiO2 ROOM AIR 06/08/18 06/08/18 06/08/18 13:30 19:25 19:25 Creatine Kinase 24 L CK-MB (CK-2) Troponin I < 0.012 NT-Pro-B Natriuret Pep 786 06/08/18 06/09/18 06/09/18 19:25 01:00 01:00 Creatine Kinase < 20 L CK-MB (CK-2) 0.57 0.49 Troponin I < 0.012 < 0.012 NT-Pro-B Natriuret Pep 06/09/18 06/09/18 07:18 07:18 Creatine Kinase 21 L CK-MB (CK-2) 0.38 Troponin I < 0.012 NT-Pro-B Natriuret Pep EKG Comments: EKG shows sinus rhythm with no acute STT changes noted. Impressions: Chest X-Ray 06/08/18 13:14 IMPRESSION: 1. No significant interval changes since the prior examination dated 05/06/2018. Stable focal pleural thickening in the right apex -right upper lobe. Chest/Abdomen CTA 06/08/18 13:17 IMPRESSION: 1. No pulmonary emboli. 2. Areas of subpleural airspace disease most likely fibrosis as described. Small indeterminate pulmonary nodules 2 to 3 in number. Not significantly changed from prior CT done in 2016. Status: Image reviewed by me Assessment & Plan - Diagnosis (1) Atrial flutter Qualifiers: Atrial flutter type: unspecified Qualified Code(s): I48.92 - Unspecified atrial flutter Is this a current diagnosis for this admission?: Yes (2) Chronic obstructive pulmonary disease Qualifiers: COPD type: unspecified COPD Qualified Code(s): J44.9 - Chronic obstructive pulmonary disease, unspecified Is this a current diagnosis for this admission?: Yes (3) Malignant neoplasm of breast Qualifiers: Breast location: unspecified site of breast Estrogen receptor status: unspecified Patient sex: female Laterality: unspecified laterality Qualified Code(s): C50.919 - Malignant neoplasm of unspecified site of unspecified female breast Is this a current diagnosis for this admission?: Yes (5) Diabetes mellitus Qualifiers: Diabetes mellitus type: type 2 Is this a current diagnosis for this admission?: Yes - Notes Notes: Reviewed labs, EKG, telemetry and imaging test. Patient appears euvolemic on exam with blood pressure well controlled at this time. Telemetry tracings from the ER suggest atrial flutter/SVT on admission but since no twelve-lead EKG is available it is difficult to confirm the rhythm. Currently patient is in sinus rhythm and review of telemetry shows short episode of likely atrial tach on 06/11/2018 in the evening which lasted for a few seconds. Her chads 2 VASC score is at least 4 and based on we agree with anticoagulation with Eliquis therapy for prophylaxis for embolic events. Her echocardiogram showed preserved EF is mildly elevated RVSP. Patient could benefit from low-dose beta-alvaro therapy for rate control if her blood pressure tolerates it. Due to her risk factors for atherosclerotic cardiovascular disease we will recommend ischemia evaluation at some point with a nuclear stress test and can be done as an outpatient as she does not have any anginal symptoms at this time. We discussed at length with the patient risks/benefits of anticoagulation and she has verbalized unders tanding of the risk. She will also benefit from an outpatient Holter to check for tachyarrhythmias including SVT and atrial flutter recurrence which will help guide future management. Patient could be considered for ablation for atrial flutter/SVT based on the Holter results. Patient is agreeable to follow with local pediatric dentist Dr. Bean in 1-2 weeks after her discharge. Please call us if any questions arise during the weekend for her cardiac care and from Thursday onwards Dr. Bean will cover the patient. - Time Time Spent: 50 to 70 Minutes
--- NOTE | 2018-06-12 18:43 | PDOC PROGRESS REPORT ---
Subjective Progress Note for:: 06/12/18 Subjective:: No chest pain or difficulty with breathing. No fever or chills. No nausea, vomiting or abdominal pain. she reported habitual constipation and last bowel movement was 3 days ago. Currently on opioid pain medication management. Reason For Visit: AFLUTTER WITH RVR, BREAST CANCER Physical Exam Vital Signs: Temp Pulse Resp BP Pulse Ox 98.2 F 66 18 146/62 H 98 06/12/18 16:41 06/12/18 16:41 06/12/18 16:41 06/12/18 16:41 06/12/18 16:41 Intake & Output 06/11/18 06/12/18 06/13/18 06:59 06:59 06:59 Intake Total 1186 643 400 Output Total 400 Balance 786 643 400 Weight 93.4 kg 93.4 kg General appearance: PRESENT: no acute distress, obese Head exam: PRESENT: atraumatic, normocephalic Ear exam: PRESENT: normal external ear exam Mouth exam: PRESENT: moist Respiratory exam: PRESENT: clear to auscultation alfonso Cardiovascular exam: PRESENT: bradycardia, RRR, +S1, +S2. ABSENT: diastolic murmur, rubs, systolic murmur Vascular exam: ABSENT: pallor GI/Abdominal exam: PRESENT: normal bowel sounds, soft. ABSENT: distended, guarding, mass, organolmegaly, rebound, tenderness Extremities exam: ABSENT: pedal edema Neurological exam: PRESENT: alert, awake, oriented to person, oriented to place, oriented to time, oriented to situation, CN II-XII grossly intact. ABSENT: motor sensory deficit Psychiatric exam: PRESENT: appropriate affect, normal mood. ABSENT: homicidal ideation, suicidal ideation Results Laboratory Results: 06/11/18 05:33 06/11/18 05:33 06/11/18 21:25 Carbonic Acid 1.23 HCO3/H2CO3 Ratio 21:1 ABG pH 7.43 ABG pCO2 40.9 ABG pO2 74.6 L ABG HCO3 26.7 H ABG O2 Saturation 95.4 ABG Base Excess 2.3 FiO2 ROOM AIR 06/08/18 06/08/18 06/08/18 13:30 19:25 19:25 Creatine Kinase 24 L CK-MB (CK-2) Troponin I < 0.012 NT-Pro-B Natriuret Pep 786 06/08/18 06/09/18 06/09/18 19:25 01:00 01:00 Creatine Kinase < 20 L CK-MB (CK-2) 0.57 0.49 Troponin I < 0.012 < 0.012 NT-Pro-B Natriuret Pep 06/09/18 06/09/18 07:18 07:18 Creatine Kinase 21 L CK-MB (CK-2) 0.38 Troponin I < 0.012 NT-Pro-B Natriuret Pep Impressions: Chest X-Ray 06/08/18 13:14 IMPRESSION: 1. No significant interval changes since the prior examination dated 05/06/2018. Stable focal pleural thickening in the right apex -right upper lobe. Chest/Abdomen CTA 06/08/18 13:17 IMPRESSION: 1. No pulmonary emboli. 2. Areas of subpleural airspace disease most likely fibrosis as described. Small indeterminate pulmonary nodules 2 to 3 in number. Not significantly changed from prior CT done in 2015. Assessment & Plan - Diagnosis (1) Atrial flutter Qualifiers: Atrial flutter type: unspecified Qualified Code(s): I48.92 - Unspecified atrial flutter Is this a current diagnosis for this admission?: Yes Plan: Continue current medication management. (2) Chronic obstructive pulmonary disease Qualifiers: COPD type: unspecified COPD Qualified Code(s): J44.9 - Chronic obstructive pulmonary disease, unspecified Is this a current diagnosis for this admission?: Yes Plan: Continue current medication management. (3) Malignant neoplasm of breast Qualifiers: Breast location: unspecified site of breast Estrogen receptor status: unspecified Patient sex: female Laterality: unspecified laterality Qualified Code(s): C50.919 - Malignant neoplasm of unspecified site of unspecified female breast Is this a current diagnosis for this admission?: Yes Plan: Continue current medication management. (4) Pulmonary hypertension Is this a current diagnosis for this admission?: Yes Plan: Continue current medication management. (5) Diabetes mellitus Qualifiers: Diabetes mellitus type: type 2 Diabetes mellitus technician terminal and repeater insulin use: without technician terminal and repeater use Diabetes mellitus complication status: with hyperglycemia Qualified Code(s): E11.65 - Type 2 diabetes mellitus with hyperglycemia Is this a current diagnosis for this admission?: Yes Plan: Continue current medication management. (6) Constipation due to opioid therapy Is this a current diagnosis for this admission?: Yes Plan: Start on Colace 200 mg po qhs. If no improvement consider Amitiza usage. - Time Time Spent with patient: 25-34 minutes Medications reviewed and adjusted accordingly: Yes Anticipated discharge: SNF - for short term rehabilitation. - Inpatient Certification Based on my medical assessment, after consideration of the patient's comorbidities, presenting symptoms, or acuity I expect that the services needed warrant INPATIENT care.: Yes I certify that my determination is in accordance with my understanding of Medicare's requirements for reasonable and necessary INPATIENT services [42 CFR 412.3e].: Yes Medical Necessity: Significant Comorbidiites Make Outpatient Treatment Too Ri jeanette, Need Close Monitoring Due to Risk of Patient Decompensation, Need For Continuous Telemetry Monitoring, Risk of Complication if Not Cared For in Hospital, Risk of Diagnosis Which Will Require Inpatient Eval/Care/Monitoring Post Hospital Care: D/C or Transfer Summary - Plan Summary Plan Summary: Start on Colace 200 mg po qhs. Maintain on all other current medication management.
[2018-06-12] MEDS: DOCUSATE SODIUM 100 MG CAPSULE PO SCH (22:34)
[2018-06-13] MEDS: OXYCODONE HCL IR 5 MG TABLET PO PRN ×3 (00:51→16:17)
[2018-06-13] MEDS: APIXABAN 5 MG TABLET PO SCH ×2 (09:21→17:13)
[2018-06-13] MEDS: METFORMIN HCL 500 MG TABLET PO SCH ×2 (09:21→17:13)
[2018-06-13] MEDS: GABAPENTIN 300 MG CAPSULE PO SCH ×4 (09:21→21:09)
[2018-06-13] MEDS: CITALOPRAM HYDROBROMIDE 20 MG TABLET PO SCH (09:22)
[2018-06-13] MEDS: LETROZOLE 2.5 MG TABLET PO SCH (09:22)
[2018-06-13] MEDS: ATORVASTATIN CALCIUM 20 MG TABLET PO SCH (09:23)
[2018-06-13] MEDS: CETIRIZINE 5 MG TABLET PO SCH (09:23)
--- NOTE | 2018-06-13 10:32 | PDOC PROGRESS REPORT ---
Subjective Progress Note for:: 06/13/18 Subjective:: No chest pain or difficulty with breathing. No fever or chills. No nausea, vomiting or abdominal pain. Reason For Visit: AFLUTTER WITH RVR, BREAST CANCER Physical Exam Vital Signs: Temp Pulse Resp BP Pulse Ox 97.7 F 59 L 20 142/77 H 96 06/13/18 03:40 06/13/18 07:00 06/13/18 03:40 06/13/18 03:40 06/13/18 03:40 Intake & Output 06/12/18 06/13/18 06/14/18 06:59 06:59 06:59 Intake Total 643 818 Output Total 2000 Balance 643 -1182 Weight 93.4 kg 92.4 kg Physical Exam: General appearance: PRESENT: no acute distress, obese Head exam: PRESENT: atraumatic, normocephalic Ear exam: PRESENT: normal external ear exam Mouth exam: PRESENT: moist Respiratory exam: PRESENT: clear to auscultation alfonso Cardiovascular exam: PRESENT: RRR, +S1, +S2. ABSENT: diastolic murmur, rubs, systolic murmur Vascular exam: ABSENT: pallor GI/Abdominal exam: PRESENT: normal bowel sounds, soft. ABSENT: distended, guarding, mass, organomegaly, rebound, tenderness Extremities exam: ABSENT: pedal edema Neurological exam: PRESENT: alert, awake, oriented to person, oriented to place, oriented to time, oriented to situation, CN II-XII grossly intact. ABSENT: motor sensory deficit Psychiatric exam: PRESENT: appropriate affect, normal mood. ABSENT: homicidal ideation, suicidal ideation Results Laboratory Results: 06/11/18 05:33 06/11/18 05:33 06/08/18 06/08/18 06/08/18 13:30 19:25 19:25 Creatine Kinase 24 L CK-MB (CK-2) Troponin I < 0.012 NT-Pro-B Natriuret Pep 786 06/08/18 06/09/18 06/09/18 19:25 01:00 01:00 Creatine Kinase < 20 L CK-MB (CK-2) 0.57 0.49 Troponin I < 0.012 < 0.012 NT-Pro-B Natriuret Pep 06/09/18 06/09/18 07:18 07:18 Creatine Kinase 21 L CK-MB (CK-2) 0.38 Troponin I < 0.012 NT-Pro-B Natriuret Pep Impressions: Chest X-Ray 06/08/18 13:14 IMPRESSION: 1. No significant interval changes since the prior examination dated 05/06/2018. Stable focal pleural thickening in the right apex -right upper lobe. Chest/Abdomen CTA 06/08/18 13:17 IMPRESSION: 1. No pulmonary emboli. 2. Areas of subpleural airspace disease most likely fibrosis as described. Small indeterminate pulmonary nodules 2 to 3 in number. Not significantly changed from prior CT done in 2016. Assessment & Plan - Diagnosis (1) Atrial flutter Qualifiers: Atrial flutter type: unspecified Qualified Code(s): I48.92 - Unspecified atrial flutter Is this a current diagnosis for this admission?: Yes (2) Chronic obstructive pulmonary disease Qualifiers: COPD type: unspecified COPD Qualified Code(s): J44.9 - Chronic obstructive pulmonary disease, unspecified Is this a current diagnosis for this admission?: Yes (3) Malignant neoplasm of breast Qualifiers: Breast location: unspecified site of breast Estrogen receptor status: unspecified Patient sex: female Laterality: unspecified laterality Qualified Code(s): C50.919 - Malignant neoplasm of unspecified site of unspecified female breast Is this a current diagnosis for this admission?: Yes (4) Pulmonary hypertension Is this a current diagnosis for this admission?: Yes (5) Diabetes mellitus Qualifiers: Diabetes mellitus type: type 2 Diabetes mellitus usp insulin use: without relief salesperson use Diabetes mellitus complication status: with hyperglycemia Qualified Code(s): E11.65 - Type 2 diabetes mellitus with hyperglycemia Is this a current diagnosis for this admission?: Yes (6) Constipation due to opioid therapy Is this a current diagnosis for this admission?: Yes - Time Time Spent with patient: 25-34 minutes Medications reviewed and adjusted accordingly: Yes Anticipated discharge: SNF Within: Other - Inpatient Certification Based on my medical assessment, after consideration of the patient's comorbidities, presenting symptoms, or acuity I expect that the services needed warrant INPATIENT care.: Yes I certify that my determination is in accordance with my understanding of Medicare's requirements for reasonable and necessary INPATIENT services [42 CFR 412.3e].: Yes Medical Necessity: Significant Comorbidiites Make Outpatient Treatment Too Risky, Need Close Monitoring Due to Risk of Patient Decompensation, Need For IV Fluids, Need For Continuous Telemetry Monitoring, Risk of Complication if Not Cared For in Hospital, Risk of Diagnosis Which Will Require Inpatient Eval/Care/Monitoring Post Hospital Care: D/C or Transfer Summary - Plan Summary Plan Summary: Continue current medication management. Awaiting SNF transfer.
[2018-06-13] MEDS: DOCUSATE SODIUM 100 MG CAPSULE PO SCH (21:09)
[2018-06-14] MEDS: CETIRIZINE 5 MG TABLET PO SCH (09:07)
[2018-06-14] MEDS: OXYCODONE HCL IR 5 MG TABLET PO PRN ×3 (09:07→21:45)
[2018-06-14] MEDS: GABAPENTIN 300 MG CAPSULE PO SCH ×4 (09:08→21:04)
[2018-06-14] MEDS: APIXABAN 5 MG TABLET PO SCH ×2 (09:08→17:14)
[2018-06-14] MEDS: ATORVASTATIN CALCIUM 20 MG TABLET PO SCH (09:08)
[2018-06-14] MEDS: CITALOPRAM HYDROBROMIDE 20 MG TABLET PO SCH (09:08)
[2018-06-14] MEDS: METFORMIN HCL 500 MG TABLET PO SCH ×2 (09:08→17:13)
[2018-06-14] MEDS: LETROZOLE 2.5 MG TABLET PO SCH (09:09)
[2018-06-14] MEDS: DOCUSATE SODIUM 100 MG CAPSULE PO SCH (21:04)
--- NOTE | 2018-06-14 21:07 | PDOC PROGRESS REPORT ---
Subjective Progress Note for:: 06/14/18 Subjective:: Patient was seen by the bedside ,she has no new complaints Reason For Visit: AFLUTTER WITH RVR, BREAST CANCER Physical Exam Vital Signs: Temp Pulse Resp BP Pulse Ox 98.2 F 63 16 156/74 H 95 06/14/18 16:44 06/14/18 19:00 06/14/18 16:44 06/14/18 16:44 06/14/18 16:44 Intake & Output 06/13/18 06/14/18 06/15/18 06:59 06:59 06:59 Intake Total 818 1447 674 Output Total 1999 1251 Balance -1182 196 674 Weight 92.4 kg 91.9 kg General appearance: PRESENT: no acute distress Eye exam: PRESENT: PERRLA Respiratory exam: PRESENT: clear to auscultation alfonso Cardiovascular exam: PRESENT: +S1, +S2 GI/Abdominal exam: PRESENT: soft Results Laboratory Results: 06/11/18 05:33 06/11/18 05:33 06/11/18 19:40 Sputum Gram Stain - Final 06/11/18 19:40 Sputum Sputum Culture - Final NORMAL AUGUST 06/08/18 06/08/18 06/08/18 13:30 19:25 19:25 Creatine Kinase 24 L CK-MB (CK-2) Troponin I < 0.012 NT-Pro-B Natriuret Pep 786 06/08/18 06/09/18 06/09/18 19:25 01:00 01:00 Creatine Kinase < 20 L CK-MB (CK-2) 0.57 0.49 Troponin I < 0.012 < 0.012 NT-Pro-B Natriuret Pep 06/09/18 06/09/18 07:18 07:18 Creatine Kinase 21 L CK-MB (CK-2) 0.38 Troponin I < 0.012 NT-Pro-B Natriuret Pep Impressions: Chest X-Ray 06/08/18 13:14 IMPRESSION: 1. No significant interval changes since the prior examination dated 05/06/2018. Stable focal pleural thickening in the right apex -right upper lobe. Chest/Abdomen CTA 06/08/18 13:17 IMPRESSION: 1. No pulmonary emboli. 2. Areas of subpleural airspace disease most likely fibrosis as described. Small indeterminate pulmonary nodules 2 to 3 in number. Not significantly changed from prior CT done in 2016. Assessment & Plan - Diagnosis (1) Atrial flutter Qualifiers: Atrial flutter type: unspecified Qualified Code(s): I48.92 - Unspecified atrial flutter Is this a current diagnosis for this admission?: Yes (2) Chronic obstructive pulmonary disease Qualifiers: COPD type: unspecified COPD Qualified Code(s): J44.9 - Chronic obstructive pulmonary disease, unspecified Is this a current diagnosis for this admission?: Yes (3) Malignant neoplasm of breast Qualifiers: Breast location: unspecified site of breast Estrogen receptor status: unspecified Patient sex: female Laterality: unspecified laterality Qualified Code(s): C50.919 - Malignant neoplasm of unspecified site of unsp ecified female breast Is this a current diagnosis for this admission?: Yes (4) Pulmonary hypertension Is this a current diagnosis for this admission?: Yes
--- NOTE | 2018-06-14 21:22 | Progress Note ---
Provider Note Provider Note: CARDIOLOGY PROGRESS NOTE by Dr. Elena Hernandez on 06/14/2018. SUBJECTIVE: The patient at present in sinus rhythm. She denies any chest pain or discomfort. There is no palpitations. There is no PND orthopnea leg or leg edema. She is able to lie flat in bed. There is no ventricular arrhythmia seen on the monitor. There is no recurrence of atrial flutter. There is no bleeding on Eliquis. There is no TIA CVA symptoms. PHYSICAL EXAMINATION: The patient is mildly obese. She is in no acute distress. She is well-groomed. Selected Entries 06/14/18 08:06 Temperature 98.0 F Temperature Oral Source Pulse Rate 57 L Respiratory 16 Rate Blood Pressure 148/56 H Blood Pressure 86 Mean BP Location Left Arm BP Position Supine O2 Sat by Pulse 98 Oximetry Oxygen Delivery Room Air Method HEAD: Is atraumatic normocephalic. EYES: Pupils are equal round regular reactive to light accommodation. Extraocular movements are normal. There is no clinical pallor. There is no scleral icterus. ENT: Is negative. NECK: Is supple. There is no JVD. Carotids are equal there is no bruit there is no lymphadenopathy. There is no goiter. There is no accessory muscle respiration use. Trachea central. LUNGS: There is diminished air entry prolonged expiration throughout. On per or on percussion there is hyperresonance. There is no rhonchi rales or wheezing. On palpation there is no chest wall tenderness. HEART: S1-S2 is heard. There is no S3 gallop there is no S4 gallop. Systolic murmur left sternal border and the apex there is no rub. ABDOMEN: Is obese. Nontender. There is no hepatosplenic megaly. Bowel sounds are well heard. EXTREMITIES: Femorals are diminished. There is no femoral bruits. Leg pulses are diminished. There is no pedal edema. There is no DVT or cellulitis. There is no calf tenderness. There is no sinus or clubbing. TEACHER ADVENTURE EDUCATION: Patient is conscious awake alert oriented x3 with no focal deficits PSYCHIATRIC: The patient judgment insight are intact her affect is normal IMPRESSION/RECOMMENDATION: 1. Paroxysmal atrial flutter. At present patient sinus rhythm. Continue her current medications, and also continue Eliquis. Note that the patient is bradycardic, without any SA slowing or AV martinez blocking agents. Would recommend the patient have a 30-day event monitor as an outpatient. 2. Moderate pulmonary hypertension: Most likely secondary to COPD. Recommend starting the patient on DAE inhibitor. 3. COPD: At present at baseline, with no evidence of acute exacerbation. 4. Hypertension: Blood pressure remained stable. On current medication. 5. History of breast cancer: Appears to be stable. 6. Hyperlipidemia: Continue statin. Medications reviewed. Medications added. Note medical decision making is of moderate complexity. 40 minutes spent on the patient with more than 50% of time spent in direct patient care. We will follow with the.
[2018-06-14] MEDS: LISINOPRIL 5 MG TABLET PO SCH (21:46)
[2018-06-15] MEDS: ATORVASTATIN CALCIUM 20 MG TABLET PO SCH (09:37)
[2018-06-15] MEDS: OXYCODONE HCL IR 5 MG TABLET PO PRN ×3 (09:38→23:23)
[2018-06-15] MEDS: CITALOPRAM HYDROBROMIDE 20 MG TABLET PO SCH (09:39)
[2018-06-15] MEDS: LISINOPRIL 5 MG TABLET PO SCH ×2 (09:39→22:13)
[2018-06-15] MEDS: LETROZOLE 2.5 MG TABLET PO SCH (09:39)
[2018-06-15] MEDS: GABAPENTIN 300 MG CAPSULE PO SCH ×4 (09:39→22:15)
[2018-06-15] MEDS: APIXABAN 5 MG TABLET PO SCH ×2 (09:39→17:06)
[2018-06-15] MEDS: METFORMIN HCL 500 MG TABLET PO SCH ×2 (09:39→17:06)
[2018-06-15] MEDS: CETIRIZINE 5 MG TABLET PO SCH (09:40)
--- NOTE | 2018-06-15 19:28 | PDOC TRANSFER SUMMARY ---
General - Admit/Disc Date/PCP Admission Date/Primary Care Provider: 06/08/18 16:44 CARLO CRAWFORD MD Discharge Date: 06/16/18 - Discharge Diagnosis (1) Atrial flutter Is this a current diagnosis for this admission?: Yes (2) Chronic obstructive pulmonary disease Is this a current diagnosis for this admission?: Yes (3) Malignant neoplasm of breast Is this a current diagnosis for this admission?: Yes (4) Pulmonary hypertension Is this a current diagnosis for this admission?: Yes (5) Rheumatoid arthritis Is this a current diagnosis for this admission?: Yes (6) Diabetes mellitus Is this a current diagnosis for this admission?: Yes (7) Chronic pain syndrome Is this a current diagnosis for this admission?: Yes - Additional Information Prescriptions: Oxycodone HCl [Oxycodone HCl 10 MG Tablet] 10 mg PO Q6HP PRN #120 tablet PRN Reason: For Pain Home Medications: Atorvastatin Calcium [Lipitor] 20 mg PO DAILY 09/01/14 Metformin HCl [Glucophage] 1,000 mg PO BID 01/17/15 Gabapentin 300 mg PO TID 09/23/17 Letrozole 2.5 mg PO DAILY 09/23/17 Citalopram Hydrobromide [Celexa 20 mg Tablet] 20 mg PO DAILY 04/12/18 Levocetirizine Dihydrochloride [24Hr Allergy Relief] 5 mg PO QPM 04/12/18 Albuterol Sulfate [Proair HFA Inhalation Aerosol 8.5 gm MDI] 2 puff IH Q4H PRN #1 mdi 05/06/18 Fluticasone/Vilanterol [Breo Ellipta 200-25 Mcg INH] 1 each IH DAILY #1 blst.w.dev 05/06/18 Gabapentin [Neurontin 300 mg Capsule] 600 mg PO QHS 06/08/18 Methotrexate Sodium [Rheumatrex 2.5 mg Tablet] 7.5 mg PO Q7D 06/08/18 Ondansetron HCl [Zofran 4 mg Tablet] 1 tab PO Q4H PRN 06/08/18 Apixaban [Eliquis 5 mg Tablet] 5 mg PO BID tablet 06/15/18 Ipratropium/Albuterol Sulfate [Duoneb 3 ml Ampul] 3 ml NEB RTQ6HP PRN vial.neb 06/15/18 Lisinopril [Prinivil 5 mg Tablet] 5 mg PO Q12 tablet 06/15/18 Oxycodone HCl [Oxycodone HCl 10 MG Tablet] 10 mg PO Q6HP PRN #120 tablet 06/15/18 History of Present Illness Admission Date/PCP: 06/08/18 16:44 CARLO CRAWFORD MD History of Present Illness: RICK ROMANO is a 72 year old female,She came to the emergency room for evaluation of palpitation, it seems that she was diagnosed with atrial flutter with 2-1 block, she was given adenosine in the emergency room, she was converted to sinus rhythm. In the emergency room CTA chest was done, it demonstrated areas of subpleural airspace disease, pleural thickening there was no pulmonary emboli visualized in the main pulmonary arteries or the segmental branches., She was found to have mild hypocalcemia, the ED physician stated that she was going to discharge the patient home but the patient was symptomatic with palpitation, she refuses to go home because she was afraid she may also experience the same episode of palpitation that brought her out to the ER to start with. She has multiple comorbid conditions including chronic obstructive pulmonary disease, malignant neoplasm of the breast, rheumatoid arthritis, type 2 diabetes Hospital Course Hospital Course: Patient was admitted for the management of paroxysmal atrial flutter, was t reated with adenosine with conversion to sinus rhythm, he was also started on anticoagulant Eliquis for prophylaxis against thromboembolic disease. Patient was admitted for observation, she has social problems in terms of there is no residence for her to be discharged to, she was also approved for long-term Medicaid and the [facility] and subsequently transferred to assisted living facility Physical Exam Vital Signs: Temp Pulse Resp BP Pulse Ox 98.3 F 62 16 123/41 L 96 06/15/18 15:38 06/15/18 15:38 06/15/18 15:38 06/15/18 15:38 06/15/18 15:38 Intake & Output 06/14/18 06/15/18 06/16/18 06:59 06:59 06:59 Intake Total 1447 874 786 Output Total 1251 Balance 196 874 786 Weight 91.9 kg 91.1 kg General appearance: PRESENT: no acute distress Eye exam: PRESENT: PERRLA Respiratory exam: PRESENT: clear to auscultation alfonso Cardiovascular exam: PRESENT: +S1, +S2 GI/Abdominal exam: PRESENT: soft Neurological exam: PRESENT: alert Results Laboratory Results: 06/11/18 05:33 06/11/18 05:33 06/08/18 06/08/18 06/08/18 13:30 19:25 19:25 Creatine Kinase 24 L CK-MB (CK-2) Troponin I < 0.012 NT-Pro-B Natriuret Pep 786 06/08/18 06/09/18 06/09/18 19:25 01:00 01:00 Creatine Kinase < 20 L CK-MB (CK-2) 0.57 0.49 Troponin I < 0.012 < 0.012 NT-Pro-B Natriuret Pep 06/09/18 06/09/18 07:18 07:18 Creatine Kinase 21 L CK-MB (CK-2) 0.38 Troponin I < 0.012 NT-Pro-B Natriuret Pep Impressions: Chest X-Ray 06/08/18 13:14 IMPRESSION: 1. No significant interval changes since the prior examination dated 05/06/2018. Stable focal pleural thickening in the right apex -right upper lobe. Chest/Abdomen CTA 06/08/18 13:17 IMPRESSION: 1. No pulmonary emboli. 2. Areas of subpleural airspace disease most likely fibrosis as described. Small indeterminate pulmonary nodules 2 to 3 in number. Not significantly changed from prior CT done in 2015. Qualifiers - * PATIENT BEING DISCHARGED WITH ANY OF THE FOLLOWING DIAGNOSIS: No
--- NOTE | 2018-06-15 20:16 | Progress Note ---
Provider Note Provider Note: CARDIOLOGY PROGRESS NOTE by Dr. Elena Hernandez on 06/15/2018. SUBJECTIVE: The patient remains in sinus bradycardia. There is no recurrence of atrial flutter. There is no ventricular arrhythmia seen. The patient denies any shortness of breath or chest pain or discomfort. There is no PND orthopnea. There is no leg edema. There is no bleeding on Eliquis. There is no TIA CVA symptoms. PHYSICAL EXAMINATION: The patient is a mild to moderately obese. She is well- groomed. In no acute distress. Selected Entries 06/15/18 08:20 Temperature 97.6 F Temperature Oral Source Pulse Rate 55 L Respiratory 16 Rate Blood Pressure 108/44 L Blood Pressure 65 Mean BP Location Right Arm BP Position Supine O2 Sat by Pulse 98 Oximetry Oxygen Delivery Room Air Method HEAD: Is atraumatic normocephalic. EYES: Pupils are equal round regular reactive to light accommodation. Extraocular movements are normal. There is no clinical pallor. There is no scleral icterus. ENT: Is negative. NECK: Is supple. There is no JVD. Carotids are equal there is no bruit there is no lymphadenopathy. There is no goiter. There is no accessory muscle respiration use. Trachea central. LUNGS: There is diminished air entry prolonged expiration throughout. On per or on percussion there is hyperresonance. There is no rhonchi rales or wheezing. On palpation there is no chest wall tenderness. HEART: S1-S2 is heard. There is no S3 gallop there is no S4 gallop. Systolic murmur left sternal border and the apex there is no rub. ABDOMEN: Is obese. Nontender. There is no hepatosplenic megaly. Bowel sounds are well heard. EXTREMITIES: Femorals are diminished. There is no femoral br uits. Leg pulses are diminished. There is no pedal edema. There is no DVT or cellulitis. There is no calf tenderness. There is no sinus or clubbing. SLIDING JOINT MAKER: Patient is conscious awake alert oriented x3 with no focal deficits PSYCHIATRIC: The patient judgment insight are intact her affect is normal IMPRESSION/RECOMMENDATION: 1. Paroxysmal atrial flutter. At present patient sinus rhythm. Continue her current medications, and also continue Eliquis. Note that the patient is bradycardic, without any SA slowing or AV martinez blocking agents. Would recommend the patient have a 30-day event monitor as an outpatient. 2. Moderate pulmonary hypertension: Most likely secondary to COPD. She is tolerating the DAE inhibitor DAE inhibitor. Recommend increasing the DAE inhibitor as tolerated by the patient. 3. COPD: At present at baseline, with no evidence of acute exacerbation. 4. Hypertension: Blood pressure remained stable. On current medication. 5. History of breast cancer: Appears to be stable. 6. Hyperlipidemia: Continue statin. Medications reviewed. Medications added. Note medical decision making is of moderate complexity. 40 minutes spent on the patient with more than 50% of time spent in direct patient care cardiac status is stable. We will sign off. Patient desires to follow-up with me in the office. Contact numbers given to the patient. The patient is going to rehab, she will call me soon after she gets out of rehab for a follow-up appointment in the office.
[2018-06-15] MEDS: DOCUSATE SODIUM 100 MG CAPSULE PO SCH (22:13)
[2018-06-16 09:25] VITALS: BP 117/99
[2018-06-16] MEDS: METFORMIN HCL 500 MG TABLET PO SCH (11:26)
[2018-06-16] MEDS: GABAPENTIN 300 MG CAPSULE PO SCH (11:26)
[2018-06-16] MEDS: LISINOPRIL 5 MG TABLET PO SCH (11:26)
[2018-06-16] MEDS: ATORVASTATIN CALCIUM 20 MG TABLET PO SCH (11:26)
[2018-06-16] MEDS: APIXABAN 5 MG TABLET PO SCH (11:26)
[2018-06-16] MEDS: CITALOPRAM HYDROBROMIDE 20 MG TABLET PO SCH (11:26)
[2018-06-16] MEDS: CETIRIZINE 5 MG TABLET PO SCH (11:27)
[2018-06-16] MEDS: LETROZOLE 2.5 MG TABLET PO SCH (11:27)
[2018-06-16] MEDS: OXYCODONE HCL IR 5 MG TABLET PO PRN (11:28)
== END 2018-06-16 14:50 ==
LOC: ER 13:10 → OBSVTOIN 16:44 → INTOOBSV 16:44 → EH 16:44 → 3S 20:42
PROVIDERS: ADMIT Internal Medicine; ATTEND Internal Medicine
DX: I48.0 Paroxysmal atrial fibrillation (principal); J44.9 Chronic obstructive pulmonary disease, unspecified; C50.919 Malignant neoplasm of unspecified site of unspecified female breast; I27.20 Pulmonary hypertension, unspecified; M06.9 Rheumatoid arthritis, unspecified; G89.4 Chronic pain syndrome; E83.51 Hypocalcemia; M19.90 Unspecified osteoarthritis, unspecified site; E78.5 Hyperlipidemia, unspecified; R63.0 Anorexia; R53.83 Other fatigue; R51 Headache; R26.81 Unsteadiness on feet; I07.1 Rheumatic tricuspid insufficiency; E11.65 Type 2 diabetes mellitus with hyperglycemia; K59.03 Drug induced constipation; T40.2X5A Adverse effect of other opioids, initial encounter; E66.9 Obesity, unspecified; E87.0 Hyperosmolality and hypernatremia; E87.8 Other disorders of electrolyte and fluid balance, not elsewhere classified; I10 Essential (primary) hypertension; Z79.899 Other long term (current) drug therapy; Z79.84 Long term (current) use of oral hypoglycemic drugs; Z87.891 Personal history of nicotine dependence; Z82.49 Family history of ischemic heart disease and other diseases of the circulatory system; Z90.13 Acquired absence of bilateral breasts and nipples; Z98.84 Bariatric surgery status; Z96.653 Presence of artificial knee joint, bilateral; Z79.891 Long term (current) use of opiate analgesic; Z92.21 Personal history of antineoplastic chemotherapy; Z92.3 Personal history of irradiation; Z68.30 Body mass index [BMI] 30.0-30.9, adult; Z59.0 Homelessness
CPT/HCPCS: 93005; 99285; 36415 ×4; 87070; 84439; 87205; 82553 ×2; 82140; 82150; 82803; 82550 ×2; 83690; 83735; 84100; 84443; 85025 ×4; 80076 ×3; 80048 ×4; 84484 ×2; 80307; 83036; 80061; 83880; 93306; 71045; 71275; 93010; 36600; G0378 ×8; A9270 ×64; J3490; S0119

== ENCOUNTER 2018-07-26 15:05 | Inpatient (IN) | payer MEDICARE, MEDICAID ==
[2018-07-26 15:49] LABS: HEMATOCRIT 32.1 % (36.0-47.0); HEMOGLOBIN 10.6 g/dL (12.0-15.5); MEAN CORPUSCULAR HEMOGLOBIN 30.1 pg (27.0-33.4); MEAN CORPUSCULAR VOLUME 91 fl (80-97); PLATELET COUNT 266 10^3/uL (150-450); RED BLOOD COUNT 3.53 10^6/uL (3.72-5.28); RED CELL DISTRIBUTION WIDTH 20.8 % (11.5-14.0); WHITE BLOOD COUNT 15.9 10^3/uL (4.0-10.5)
--- NOTE | 2018-07-26 15:49 | RADIOLOGY REPORT (SQ) ---
EXAM DESCRIPTION: CHEST SINGLE VIEW COMPLETED DATE/TIME: 07/26/2018 3:36 pm REASON FOR STUDY: bed 15 db COMPARISON: CT angio chest 06/08/2018 Chest films 06/08/2018, 05/06/2018, 04/12/2018 EXAM PARAMETERS: NUMBER OF VIEWS: One view. TECHNIQUE: Single frontal radiographic view of the chest acquired. RADIATION DOSE: NA LIMITATIONS: None. FINDINGS: LUNGS AND PLEURA: No acute infiltrates or pleural effusions. No pneumothorax. Stable mild increased interstitial markings in both upper lobes anteriorly, unchanged from prior stud ies. MEDIASTINUM AND HILAR STRUCTURES: No masses. Contour normal. HEART AND VASCULAR STRUCTURES: Heart normal in size. Normal vasculature. 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 HARDWARE: Surgical clips left chest post mastectomy. Right permanent central line tip superior vena cava OTHER: No other significant finding. IMPRESSION: No acute findings. Old left mastectomy. TECHNICAL DOCUMENTATION: JOB ID: [id number] [employer]- All Rights Reserved Reading location - IP/workstation name: [email or web address]
[2018-07-26] MEDS ORDERED: ACETAMINOPHEN 325 MG TABLET PO ONE (16:05)
[2018-07-26 16:13] LABS: ABSOLUTE LYMPHOCYTES# (MANUAL) 0.8 10^3/uL (0.5-4.7); ABSOLUTE MONOCYTES # (MANUAL) 1.1 10^3/uL (0.1-1.4); BASOPHILS % (MANUAL) 0 % (0-2); EOSINOPHILS % (MANUAL) 0 % (0-6); LYMPHOCYTES % (MANUAL) 5 % (13-45); MONOCYTES % (MANUAL) 7 % (3-13); PLATELET COMMENT ADEQUATE; SEGMENTED NEUTROPHILS % (MAN) 88 % (42-78); TOTAL CELLS COUNTED 100; TOXIC GRANULATION SLIGHT
--- NOTE | 2018-07-26 16:15 | ER Document Report ---
ED Respiratory Problem - General Mode of Arrival: Medic Information source: Patient, Relative TRAVEL OUTSIDE OF THE [place] IN LAST 30 DAYS: No - HPI Patient complains to provider of: COPD, Cough, Short of breath Onset: Other - 2 days Duration: Worse/persistent Quality of pain: Achy Pain Level: 2 Context: Hx COPD. denies: Recent immobilization, Recent surgery, Smoker Cough: Nonproductive EMS treatments: Bronchodilators Associated symptoms: Cough, Fever, Short of breath. denies: Chest pain/discomfort Similar symptoms previously: No Recently seen / treated by doctor: No <SHAE DURANT - Last Filed: 07/26/18 20:25> <TRISTAN GRANGER - Last Filed: 07/27/18 03:28> - General Chief Complaint: Shortness Of Breath Stated Complaint: SHORTNESS OF BREATH Time Seen by Provider: 07/26/18 15:58 Notes: Patient presents complaining of shortness of breath today. Patient reports cough for several weeks. Patient with fever here today. Patient denies any nausea vomiting or diarrhea. Patient complains of generalized body aches. Patient resides at [facility]. (SHAE DURANT) - Related Data Allergies/Adverse Reactions: No Known Allergies Allergy (Verified 05/06/18 16:30) Past Medical History - General Information source: Patient, Relative - Social History Smoking Status: Former Smoker Chew tobacco use (# tins/day): No Frequency of alcohol use: None Drug Abuse: None Lives with: Other - Assisted living Family History: Reviewed & Not Pertinent Patient has suicidal ideation: No Patient has homicidal ideation: No - Past Medical History Cardiac Medical History: Reports: Hx Hypercholesterolemia, Hx Hypertension Denies: Hx Coronary Artery Disease, Hx Heart Attack Pulmonary Medical History: Reports: Hx Asthma, Hx COPD Denies: Hx Bronchitis, Hx Pneumonia Neurological Medical History: Denies: Hx Cerebrovascular Accident, Hx Seizures Endocrine Medical History: Reports: Hx Diabetes Mellitus Type 2 Renal/ Medical History: Denies: Hx Peritoneal Dialysis Malignancy Medical History: Reports: Hx Breast Cancer - Left GI Medical History: Reports: Hx Gastroesophageal Reflux Disease, Hx Endoscopy Musculoskeletal Medical History: Reports Hx Arthritis - RA, OA, DEGENERATIVE arthritis Psychiatric Medical History: Reports: Hx Depression Past Surgical History: Reports: Hx Abdominal Surgery - VENTRAL HERNIA REPAIRS WITH MESH, Hx Breast Surgery - Left mastectomy with axillary node dissection, Hx Gastric Bypass Surgery - Gastric sleeve, Hx Mastectomy - double, Hx Orthopedic Surgery - right shoulder, Bilat Knee replacement, bilat feet - Immunizations Immunizations up to date: Yes Hx Diphtheria, Pertussis, Tetanus Vaccination: Yes Hx Pneumococcal Vaccination: 12/27/12 <SHAE DURANT - Last Filed: 07/26/18 20:25> Review of Systems - Review of Systems Constitutional: Fever EENT: No symptoms reported Cardiovascular: No symptoms reported Respiratory: Cough, Short of breath Gastrointestinal: No symptoms reported. denies: Vomiting Genitourinary: No symptoms reported Female Genitourinary: No symptoms reported Musculoskeletal: Other - Generalized body aches Skin: No symptoms reported Hematologic/Lymphatic: No symptoms reported Neurological/Psychological: No symptoms reported <SHAE DURANT - Last Filed: 07/26/18 20:25> Physical Exam - General General appearance: Alert In distress: Moderate - HEENT Head: Normocephalic, Atraumatic Eyes: Normal Conjunctiva: Normal Nasal: Normal Mouth/Lips: Normal Mucous membranes: Normal Neck: Normal, Supple. No: Lymphadenopathy - Respiratory Respiratory status: Labored Chest status: Nontender Breath sounds: Nonproductive cough, Rales Chest palpation: Normal - Cardiovascular Rhythm: Regular Heart sounds: S1 appreciated, S2 appreciated Murmur: No - Abdominal Inspection: Normal Distension: No distension Bowel sounds: Normal Tenderness: Nontender Organomegaly: No organomegaly - Back Back: Normal, Nontender. No: CVA tenderness - Extremities General upper extremity: Normal inspection, Normal ROM General lower extremity: Normal inspection, Normal ROM - Neurological Neuro grossly intact: Yes Cognition: Normal [place] Coma Scale Eye Opening: Spontaneous Ely Coma Scale Verbal: Oriented Ely Coma Scale Motor: Obeys Commands Ely Coma Scale Total: 15 - Psychological Associated symptoms: Normal affect, Normal mood - Skin Skin Temperature: Warm Skin Moisture: Dry Skin Color: Normal <SHAE DURANT - Last Filed: 07/26/18 20:25> - Vital signs Vitals: Resp BP Pulse Ox 22 H 156/67 H 92 07/26/18 15:18 07/26/18 15:18 07/26/18 15:18 Course - Laboratory Result Diagrams: 07/26/18 15:25 07/26/18 15:25 <SHAE DURANT - Last Filed: 07/26/18 20:25> - Laboratory Result Diagrams: 07/26/18 15:25 07/26/18 15:25 <TRISTAN GRANGER - Last Filed: 07/27/18 03:28> - Re-evaluation Re-evalutation: 07/26/18 16:14 Patient tachypneic with oxygen saturation 88-91%. Patient with fine crackles bi laterally, no wheezing noted. 07/26/18 17:03 Patient tolerating BiPAP well, patient denies any dyspnea symptoms at present. Oxygen saturation presently 97% with a heart rate of 85. Consulted with Dr. Sosa regarding patient presentation and management. Recommends CT imaging of the chest. 07/26/18 19:19 Patient sleeping, arouses easily to voice. Awaiting CT at this time. 07/26/18 19:48 Patient returned to room from CT. Patient had gone to the radiology department with only oxygen on. Patient oxygen sat 96% on 4 L. RN encouraged to turn oxygen down to 2 L. We will continue to monitor at this time. 07/26/18 20:25 Patient with wheezing and rhonchi with rales to the bases of bilateral lungs. Oxygen saturation 90-92% on 2 L at this time. Bedside report and handoff given to Rebecca RAMIREZ (SHAE DURANT) Patient CTA shows no signs of pulmonary embolism, does show signs of bilateral lower lobe consolidation. Doxycycline added to patient's treatment regimen. Discussed case with Dr. Bender, patient's primary care provider. Will admit the patient for hypoxia and bilateral lower lobe pneumonia. Patient remains on oxygen 2 L/min and no obvious respiratory distress. (TRISTAN GRANGER) - Vital Signs Vital signs: Temp Pulse Resp BP Pulse Ox 99.5 F 73 19 139/66 H 92 07/26/18 19:49 07/27/18 01:50 07/27/18 02:52 07/27/18 02:52 07/27/18 02:52 - Laboratory Laboratory results interpreted by me: 07/26/18 07/26/18 07/26/18 15:25 15:25 16:15 WBC 15.9 H RBC 3.53 L Hgb 10.6 L Hct 32.1 L RDW 20.8 H Seg Neuts % (Manual) 88 H Lymphocytes % (Manual) 5 L Abs Neuts (Manual) 14.0 H Carbonic Acid ABG pH ABG pCO2 ABG HCO3 ABG Total CO2 Sodium 133.6 L Glucose 206 H Creatine Kinase 27 L Urine Protein 30 H Urine Blood MODERATE H Urine Urobilinogen 2.0 H 07/26/18 17:10 WBC RBC Hgb Hct RDW Seg Neuts % (Manual) Lymphocytes % (Manual) Abs Neuts (Manual) Carbonic Acid 1.02 L ABG pH 7.49 H ABG pCO2 33.9 L ABG HCO3 25.2 H ABG Total CO2 26.2 H Sodium Glucose Creatine Kinase Urine Protein Urine Blood Urine Urobilinogen Discharge <SHAE DURANT - Last Filed: 07/26/18 20:25> - Discharge Admitting Provider: [facility] Unit Admitted: [facility] <TRISTAN GRANGER - Last Filed: 07/27/18 03:28> - Discharge Clinical Impression: Hypoxia Pneumonia Qualifiers: Pneumonia type: due to unspecified organism Laterality: bilateral Lung location: lower lobe of lung Qualified Code(s): J18.1 - Lobar pneumonia, unspecified organism Condition: Fair Disposition: ADMITTED INPATIENT
[2018-07-26 16:20] LABS: CREATINE KINASE MB 0.23 ng/mL (<4.55); TROPONIN I < 0.012 ng/mL
[2018-07-26 16:22] LABS: ALANINE AMINOTRANSFERASE 29 U/L (9-52); ALBUMIN 3.8 g/dL (3.5-5.0); ALKALINE PHOSPHATASE 92 U/L (38-126); ANION GAP 11 (5-19); ASPARTATE AMINO TRANSFERASE 21 U/L (14-36); BILIRUBIN,DIRECT 0.4 mg/dL (0.0-0.4); BILIRUBIN,TOTAL 0.9 mg/dL (0.2-1.3); BLOOD UREA NITROGEN 19 mg/dL (7-20); CALCIUM 9.4 mg/dL (8.4-10.2); CARBON DIOXIDE 24 mmol/L (22-30); CHLORIDE 99 mmol/L (98-107); CREATINE KINASE 27 U/L (30-135); GLUCOSE 206 mg/dL (75-110); SODIUM 133.6 mmol/L (137-145); TOTAL PROTEIN 7.3 g/dL (6.3-8.2)
[2018-07-26 16:51] LABS: APPEARANCE,URINE CLEAR; BILIRUBIN,URINE NEGATIVE (NEGATIVE); COLOR,URINE YELLOW; GLUCOSE, URINE NEGATIVE (NEGATIVE); KETONES,URINE NEGATIVE (NEGATIVE); LEUKOCYTE ESTERASE,URINE NEGATIVE (NEGATIVE); NITRITE,URINE NEGATIVE (NEGATIVE); PROTEIN,URINE 30 mg/dL (NEGATIVE); URINE SPECIFIC GRAVITY 1.018
[2018-07-26] MEDS ORDERED: IPRATROPIUM/ALBUTEROL 0.5-2.5 MG/3 ML AMPUL NEB ONE (17:02)
[2018-07-26] MEDS ORDERED: METHYLPREDNISOLONE INJ 125 MG/2 ML SDV IV ONE (17:02)
[2018-07-26] MEDS ORDERED: CEFTRIAXONE 1 GM/D5W RTU 1 GM/50 ML RTUPB IV ONE (17:02)
[2018-07-26 17:44] LABS: ARTERIAL BLOOD BASE EXCESS 2.1 mmol/L; ARTERIAL BLOOD H2CO3 1.02 mmol/L (1.05-1.35); ARTERIAL BLOOD HCO3 25.2 mmol/L (20-24); ARTERIAL BLOOD O2 SATURATION 97.7 % (94-98); ARTERIAL BLOOD PCO2 33.9 mmHg (35-45); ARTERIAL BLOOD PH 7.49 (7.35-7.45); ARTERIAL BLOOD PO2 94.1 mmHg (80-100); ARTERIAL BLOOD TOTAL CO2 26.2 mmol/L (21-25)
[2018-07-26 17:46] LABS: ARTERIAL BLOOD FIO2 50%
--- NOTE | 2018-07-26 19:36 | EKG REPORT ---
SEVERITY:- BORDERLINE ECG - SINUS RHYTHM ATRIAL PREMATURE COMPLEX BORDERLINE T WAVE ABNORMALITIES : Confirmed by: Michael Waters MD 26-Jul-2018 19:35:39
[2018-07-26] MEDS ORDERED: ALBUTEROL SULFATE 0.083% NEB 2.5 MG/3 ML AMPUL NEB ONE (20:25)
--- NOTE | 2018-07-26 21:21 | RADIOLOGY REPORT (SQ) ---
EXAM DESCRIPTION: CT CHEST ANGIOGRAPHY WITHOUT THEN WITH IV CONTRAST COMPLETED DATE/TME: 07/26/2018 17:03 CLINICAL HISTORY: 72 years, Female, sob COMPARISON: 06/08/2018 PROCEDURE: CLINICAL HISTORY: 72 years Female sob COMPARISON: None. TECHNIQUE: Contiguous axial images were obtained through the chest during the infusion of IV contrast. Reformatted images obtained. MIP reformatted images obtained. This exam was performed according to our department optimization program which includes automated exposure control, adjustment of the mA and/or kv according to patient size and/or use of iterative reconstruction technique. FINDINGS: Consolidation and atelectasis involves each lung base. There is a small left pleural effusion. There is mild soft tissue stranding in the subcutaneous fat bilaterally, right greater than left. There is a small hiatal hernia. Postoperative changes of the stomach are seen. Left adrenal gland is mildly enlarged at 12 mm transverse and underlying mass is not excluded. IVC filter is in place. The retention legs extend beyond the lumen. The apex of the filter extends up to the level of the left renal vein and superior to the level of the right renal vein entrance into the IVC. Gallbladder is surgically absent. Emphysematous changes involve both lungs. Patchy bilateral opacities are seen in both lungs.. There are surgical clips in the chest wall bilaterally. There are mildly enlarged mediastinal lymph nodes. No pneumothorax is seen. Heart size is normal. No PE is seen. No evidence of aortic aneurysm. IMPRESSION: No evidence of pulmonary embolus. Bilateral consolidations and left pleural effusion. Underlying masses are not excluded. Pulmonary interstitial disease. Edema is seen in the subcutaneous fat bilaterally, right greater than left. See additional findings above.
[2018-07-26] MEDS ORDERED: DOXYCYCLINE HYCLATE INJ 100 MG VIAL IV ONE (21:47)
[2018-07-26] MEDS ORDERED: ENOXAPARIN SODIUM INJ 30 MG/0.3 ML DISP.SYRIN SUBCUT SCH (22:00)
--- NOTE | 2018-07-26 22:39 | PDOC H&P ---
History of Present Illness Admission Date/PCP: 07/26/18 21:56 CARLO CRAWFORD MD History of Present Illness: RICK ROMANO is a 72 year old female, Patient is presently a resident of assisted living facility at [facility], she was transferred from the facility to the emergency room for evaluation of shortness of breath, fever and cough in the emergency room she was evaluated CT chest angiography was obtained, it demonstrated consolidation and atelectasis involving each lung base there is a small left pleural effusion. Also found was IVC filter in place there was no evidence of pulmonary embolus The arterial blood gas on FiO2 50%, pH 7.49, PCO2 94.1, bicarbonate 25.2, PCO2 33.9 Past Medical History Cardiac Medical History: Reports: Hyperlipidema, Hypertension Pulmonary Medical History: Reports: Asthma, Chronic Obstructive Pulmonary Disease (COPD) Endocrine Medical History: Reports: Diabetes Mellitus Type 2 Malignancy Medical History: Reports: Breast Cancer - Left GI Medical History: Reports: Gastroesophageal Reflux Disease Musculoskeltal Medical History: Reports: Arthritis - RA, OA, DEGENERATIVE a rthritis Psychiatric Medical History: Reports: Depression Past Surgical History Past Surgical History: Reports: Gastric Bypass Surgery - Gastric sleeve, Mastectomy - double, Orthopedic Surgery - right shoulder, Bilat Knee replacement, bilat feet Social History Lives with: Other - Assisted living Smoking Status: Former Smoker Frequency of Alcohol Use: None Hx Recreational Drug Use: No Drugs: None Hx Prescription Drug Abuse: No Family History Family History: Reviewed & Not Pertinent Parental Family History Reviewed: Yes Children Family History Reviewed: Yes Sibling(s) Family History Reviewed.: Yes Medication/Allergy Home Medications: Apixaban [Eliquis 5 mg Tablet] 5 mg PO Q12 07/27/18 Atorvastatin Calcium [Lipitor 20 mg Tablet] 20 mg PO QHS 07/27/18 Citalopram Hydrobromide [Celexa 20 mg Tablet] 20 mg PO DAILY 07/27/18 Docusate Sodium [Colace 100 mg Capsule] 100 mg PO DAILY 07/27/18 Fluticasone/Vilanterol [Breo 200-25 Mcg Ellipta 14 Dose/Dpi] 1 puff IH DAILY 07/27/18 Gabapentin [Neurontin] 600 mg PO BID 07/27/18 Guaifenesin [Robitussin Syrup 200 mg/10 ml Ud Cup] 10 ml PO Q4HP PRN 07/27/18 Letrozole [Femara 2.5 mg Tablet] 2.5 mg PO DAILY 07/27/18 Levocetirizine Dihydrochloride [Xyzal] 5 mg PO QHS 07/27/18 Lisinopril [Prinivil 5 mg Tablet] 5 mg PO Q12 07/27/18 Metformin HCl [Glucophage] 1,000 mg PO BID 07/27/18 Methotrexate Sodium [Rheumatrex 2.5 mg Tablet] 7.5 mg PO LOPEZ@1000 07/27/18 Ondansetron HCl [Zofran 4 mg Tablet] 4 mg PO Q4HP PRN 07/27/18 Oxycodone HCl [Oxycodone HCl 10 MG Tablet] 10 mg PO Q6HP PRN 07/27/18 Allergies/Adverse Reactions: No Known Allergies Allergy (Verified 05/06/18 16:30) Review of Systems Constitutional: PRESENT: fever(s). ABSENT: chills, headache(s), weight gain, weight loss Eyes: ABSENT: visual disturbances Ears: ABSENT: hearing changes Cardiovascular: ABSENT: chest pain, dyspnea on exertion, edema, orthropnea, palpitations Respiratory: PRESENT: cough, dyspnea. ABSENT: hemoptysis Gastrointestinal: ABSENT: abdominal pain, constipation, diarrhea, hematemesis, hematochezia, nausea, vomiting Genitourinary: ABSENT: dysuria, hematuria Musculoskeletal: ABSENT: joint swelling Integumentary: ABSENT: rash, wounds Neurological: ABSENT: abnormal gait, abnormal speech, confusion, dizziness, focal weakness, syncope Psychiatric: ABSENT: anxiety, depression, homidical ideation, suicidal ideation Endocrine: ABSENT: cold intolerance, heat intolerance, menstrual abnormalities, polydipsia, polyuria Hematologic/Lymphatic: ABSENT: easy bleeding, easy bruising, lymphadenopathy Physical Exam Vital Signs: Temp Pulse Resp BP Pulse Ox 99.5 F 22 H 124/61 93 07/26/18 19:49 07/26/18 19:49 07/26/18 19:49 07/26/18 19:49 Intake & Output 07/25/18 07/26/18 07/27/18 06:59 06:59 06:59 Intake Total 50 Balance 50 Weight 94.8 kg General appearance: PRESENT: mild distress Head exam: PRESENT: atraumatic, normocephalic Eye exam: PRESENT: PERRLA Ear exam: PRESENT: normal external ear exam Mouth exam: PRESENT: moist, tongue midline Neck exam: PRESENT: full ROM Respiratory exam: PRESENT: rales, rhonchi Cardiovascular exam: PRESENT: RRR, +S1, +S2 Vascular exam: PRESENT: normal capillary refill GI/Abdominal exam: PRESENT: normal bowel sounds, soft Rectal exam: PRESENT: deferred Neurological exam: PRESENT: alert, CN II-XII grossly intact Psychiatric exam: PRESENT: appropriate affect, normal mood Skin exam: PRESENT: dry, intact, warm Results Laboratory Results: 07/26/18 15:25 07/26/18 15:25 07/26/18 07/26/18 07/26/18 15:25 15:25 15:25 WBC 15.9 H RBC 3.53 L Hgb 10.6 L Hct 32.1 L MCV 91 MCH 30.1 MCHC 33.0 RDW 20.8 H Plt Count 266 Seg Neutrophils % Not Reportable Lymphocytes % Not Reportable Monocytes % Not Reportable Eosinophils % Not Reportable Basophils % Not Reportable Absolute Neutrophils Not Reportable Absolute Lymphocytes Not Reportable Absolute Monocytes Not Reportable Absolute Eosinophils Not Reportable Absolute Basophils Not Reportable Carbonic Acid HCO3/H2CO3 Ratio ABG pH ABG pCO2 ABG pO2 ABG HCO3 ABG O2 Saturation ABG Base Excess FiO2 Sodium 133.6 L Potassium 4.0 Chloride 99 Carbon Dioxide 24 Anion Gap 11 BUN 19 Creatinine 0.87 Est GFR ( Amer) > 60 Est GFR (Non-Af Amer) > 60 Glucose 206 H Lactic Acid 1.3 Calcium 9.4 Magnesium Total Bilirubin 0.9 AST 21 ALT 29 Alkaline Phosphatase 92 Total Protein 7.3 Albumin 3.8 Urine Color Urine Appearance Urine pH Ur Specific [place] Urine Protein Urine Glucose (UA) Urine Ketones Urine Blood Urine Nitrite Ur Leukocyte Esterase Urine WBC (Auto) Urine RBC (Auto) 07/26/18 07/26/18 07/26/18 16:15 16:15 17:10 WBC RBC Hgb Hct MCV MCH MCHC RDW Plt Count Seg Neutrophils % Lymphocytes % Monocytes % Eosinophils % Basophils % Absolute Neutrophils Absolute Lymphocytes Absolute Monocytes Absolute Eosinophils Absolute Basophils Carbonic Acid 1.02 L HCO3/H2CO3 Ratio 24:1 ABG pH 7.49 H ABG pCO2 33.9 L ABG pO2 94.1 ABG HCO3 25.2 H ABG O2 Saturation 97.7 ABG Base Excess 2.1 FiO2 50% Sodium Potassium Chloride Carbon Dioxide Anion Gap BUN Creatinine Est GFR ( Amer) Est GFR (Non-Af Amer) Glucose Lactic Acid Calcium Magnesium 1.7 Total Bilirubin AST ALT Alkaline Phosphatase Total Protein Albumin Urine Color YELLOW Urine Appearance CLEAR Urine pH 5.0 Ur Specific [place] 1.018 Urine Protein 30 H Urine Glucose (UA) NEGATIVE Urine Ketones NEGATIVE Urine Blood MODERATE H Urine Nitrite NEGATIVE Ur Leukocyte Esterase NEGATIVE Urine WBC (Auto) 2 Urine RBC (Auto) 5 07/26/18 07/26/18 07/26/18 15:25 15:25 16:05 Creatine Kinase 27 L CK-MB (CK-2) 0.23 Troponin I < 0.012 NT-Pro-B Natriuret Pep 688 07/26/18 18:35 Creatine Kinase CK-MB (CK-2) Troponin I < 0.012 NT-Pro-B Natriuret Pep Impressions: Chest X-Ray 07/26/18 15:08 IMPRESSION: No acute findings. Old left mastectomy. Chest/Abdomen CTA 07/26/18 17:03 IMPRESSION: No evidence of pulmonary embolus. Bilateral consolidations and left pleural effusion. Underlying masses are not excluded. Pulmonary interstitial disease. Edema is seen in the subcutaneous fat bilaterally, right greater than left. See additional findings above. Assessment & Plan - Diagnosis (1) Bilateral pneumonia Qualifiers: Pneumonia type: due to unspecified organism Lung location: unspecified part of lung Qualified Code(s): J18.9 - Pneumonia, unspecified organism Is this a current diagnosis for this admission?: Yes Plan: She has bilateral pneumonia present, she will be treated empirically with IV cefepime and Levaquin (2) Chronic obstructive pulmonary disease Qualifiers: COPD type: unspecified COPD Qualified Code(s): J44.9 - Chronic obstructive pulmonary disease, unspecified Is this a current diagnosis for this admission?: Yes (3) Diabetes mellitus Qualifiers: Diabetes mellitus type: type 2 Diabetes mellitus long term care social worker insulin use: without shelter use Diabetes mellitus complication status: with neurologic complications Diabetes mellitus complication detail: with polyneuropathy Qualified Code(s): E11.42 - Type 2 diabetes mellitus with diabetic polyneuropathy Is this a current diagnosis for this admission?: Yes Plan: continue treatment (4) Malignant neoplasm of breast Qualifiers: Breast location: unspecified site of breast Estrogen receptor status: unspecified Patient sex: female Laterality: unspecified laterality Qualified Code(s): C50.919 - Malignant neoplasm of unspecified site of unspecified female breast Is this a current diagnosis for this admission?: Yes
[2018-07-26] MEDS: LEVALBUTEROL HCL NEB 0.63 MG/3 ML AMPUL NEB SCH (23:33)
[2018-07-26] MEDS: NORMAL SALINE 1000 ML 1,000 ML IV PRN (23:34)
[2018-07-26] MEDS: CEFEPIME 2 GM/D5W RTU 2 GM/50 ML RTUPB IV SCH (23:35)
[2018-07-27] MEDS: LEVOFLOXACIN 750 MG/D5W RTU 750 MG/150 ML RTUPB IV SCH ×2 (00:39→22:50)
[2018-07-27 01:00] LABS: CREATINE KINASE MB < 0.22 ng/mL (<4.55); TROPONIN I < 0.012 ng/mL
[2018-07-27] MEDS: LEVALBUTEROL HCL NEB 0.63 MG/3 ML AMPUL NEB SCH ×5 (01:46→14:04)
[2018-07-27] MEDS ORDERED: (PENDING PHARMACY ID) (Ondansetron Hcl [Zofran 4 Mg Tablet] 4 MG) PO PRN (08:32)
[2018-07-27] MEDS ORDERED: GUAIFENESIN SYRP 200 MG/10 ML UDC PO PRN (08:32)
[2018-07-27 08:45] LABS: HEMATOCRIT 29.9 % (36.0-47.0); HEMOGLOBIN 9.9 g/dL (12.0-15.5); MEAN CORPUSCULAR HEMOGLOBIN 30.1 pg (27.0-33.4); MEAN CORPUSCULAR HGB CONC 33.2 g/dL (32.0-36.0); MEAN CORPUSCULAR VOLUME 91 fl (80-97); PLATELET COUNT 232 10^3/uL (150-450); RED BLOOD COUNT 3.29 10^6/uL (3.72-5.28); RED CELL DISTRIBUTION WIDTH 19.9 % (11.5-14.0); WHITE BLOOD COUNT 11.2 10^3/uL (4.0-10.5)
[2018-07-27 08:46] LABS: ALANINE AMINOTRANSFERASE 30 U/L (9-52); ALBUMIN 3.1 g/dL (3.5-5.0); ALKALINE PHOSPHATASE 81 U/L (38-126); ANION GAP 9 (5-19); ASPARTATE AMINO TRANSFERASE 13 U/L (14-36); BILIRUBIN,DIRECT 0.3 mg/dL (0.0-0.4); BILIRUBIN,TOTAL 0.4 mg/dL (0.2-1.3); BLOOD UREA NITROGEN 20 mg/dL (7-20); CALCIUM 9.4 mg/dL (8.4-10.2); CARBON DIOXIDE 25 mmol/L (22-30); CHLORIDE 104 mmol/L (98-107); GLUCOSE 250 mg/dL (75-110); SODIUM 138.4 mmol/L (137-145); TOTAL PROTEIN 6.1 g/dL (6.3-8.2)
[2018-07-27 09:06] LABS: ABSOLUTE MONOCYTES # (MANUAL) 0.4 10^3/uL (0.1-1.4); ABSOLUTE NEUTROPHILS# (MANUAL) 10.6 10^3/uL (1.7-8.2); BASOPHILS % (MANUAL) 1 % (0-2); EOSINOPHILS % (MANUAL) 0 % (0-6); LYMPHOCYTES % (MANUAL) 0 % (13-45); MONOCYTES % (MANUAL) 4 % (3-13); SEGMENTED NEUTROPHILS % (MAN) 95 % (42-78); TOTAL CELLS COUNTED 100
[2018-07-27 09:13] LABS: ANISOCYTOSIS 2+; OVALOCYTES SLIGHT; POIKILOCYTOSIS SLIGHT; POLYCHROMASIA SLIGHT; SCHISTOCYTES SLIGHT; TEAR DROP CELLS SLIGHT
[2018-07-27 09:14] LABS: PLATELET COMMENT ADEQUATE
[2018-07-27] MEDS: CEFEPIME 2 GM/D5W RTU 2 GM/50 ML RTUPB IV SCH ×2 (09:47→22:07)
[2018-07-27] MEDS: NORMAL SALINE 1000 ML 1,000 ML IV PRN ×2 (09:47→20:08)
[2018-07-27] MEDS: CITALOPRAM HYDROBROMIDE 20 MG TABLET PO SCH (09:48)
[2018-07-27] MEDS: APIXABAN 5 MG TABLET PO SCH ×2 (09:48→22:05)
[2018-07-27] MEDS: LISINOPRIL 5 MG TABLET PO SCH ×2 (09:48→22:05)
[2018-07-27] MEDS: DOCUSATE SODIUM 100 MG CAPSULE PO SCH (09:48)
[2018-07-27] MEDS: METFORMIN HCL 500 MG TABLET PO SCH ×2 (10:02→17:15)
[2018-07-27] MEDS: GABAPENTIN 300 MG CAPSULE PO SCH ×2 (10:02→22:06)
[2018-07-27] MEDS: LETROZOLE 2.5 MG TABLET PO SCH (10:11)
[2018-07-27] MEDS: FLUTICASONE/VILANTEROL 200-25 MCG/DOSE IH SCH (10:12)
[2018-07-27] MEDS: OXYCODONE HCL IR 5 MG TABLET PO PRN ×2 (13:03→20:09)
--- NOTE | 2018-07-27 18:23 | PDOC PROGRESS REPORT ---
Subjective Progress Note for:: 07/27/18 Subjective:: Patient was admitted yesterday for the management of pneumonia she was seen by the bedside, she seemed to be responding to treatment she has no new complaints Reason For Visit: BILATERAL PNEUMONIA, ACUTE HYPOXEMIC RESPIRATORY Physical Exam Vital Signs: Temp Pulse Resp BP Pulse Ox 98.4 F 84 20 99/39 L 95 07/27/18 14:53 07/27/18 14:53 07/27/18 14:53 07/27/18 14:53 07/27/18 14:53 Intake & Output 07/26/18 07/27/18 07/28/18 06:59 06:59 06:59 Intake Total 150 1050 Balance 150 1050 Weight 91.6 kg General appearance: PRESENT: no acute distress Eye exam: PRESENT: PERRLA Respiratory exam: PRESENT: rhonchi Cardiovascular exam: PRESENT: +S1, +S2 GI/Abdominal exam: PRESENT: soft Neurological exam: PRESENT: alert Results Laboratory Results: 07/27/18 07:49 07/27/18 07:49 07/27/18 07/27/18 07:49 07:49 WBC 11.2 H RBC 3.29 L Hgb 9.9 L Hct 29.9 L MCV 91 MCH 30.1 MCHC 33.2 RDW 19.9 H Plt Count 232 Seg Neutrophils % Not Reportable Lymphocytes % Not Reportable Monocytes % Not Reportable Eosinophils % Not Reportable Basophils % Not Reportable Absolute Neutrophils Not Reportable Absolute Lymphocytes Not Reportable Absolute Monocytes Not Reportable Absolute Eosinophils Not Reportable Absolute Basophils Not Reportable Sodium 138.4 Potassium 4.0 Chloride 104 Carbon Dioxide 25 Anion Gap 9 BUN 20 Creatinine 0.78 Est GFR ( Amer) > 60 Est GFR (Non-Af Amer) > 60 Glucose 250 H Calcium 9.4 Total Bilirubin 0.4 AST 13 L ALT 30 Alkaline Phosphatase 81 Total Protein 6.1 L Albumin 3.1 L 07/26/18 07/26/18 07/26/18 15:25 15:25 16:05 Creatine Kinase 27 L CK-MB (CK-2) 0.23 Troponin I < 0.012 NT-Pro-B Natriuret Pep 688 07/26/18 07/27/18 07/27/18 18:35 00:15 00:15 Creatine Kinase 20 L CK-MB (CK-2) < 0.22 Troponin I < 0.012 < 0.012 NT-Pro-B Natriuret Pep Impressions: Chest X-Ray 07/26/18 15:08 IMPRESSION: No acute findings. Old left mastectomy. Chest/Abdomen CTA 07/26/18 17:03 IMPRESSION: No evidence of pulmonary embolus. Bilateral consolidations and left pleural effusion. Underlying masses are not excluded. Pulmonary interstitial disease. Edema is seen in the subcutaneous fat bilaterally, right greater than left. See additional findings above. Assessment & Plan - Diagnosis (1) Bilateral pneumonia Qualifiers: Pneumonia type: due to unspecified organism Lung location: unspecified part of lung Qualified Code(s): J18.9 - Pneumonia, unspecified organism Is this a current diagnosis for this admission?: Yes Plan: Continue IV antibiotic (2) Chronic obstructive pulmonary disease Qualifiers: COPD type: unspecified COPD Qualified Code(s): J44.9 - Chronic obstructive pulmonary disease, unspecified Is this a current diagnosis for this admission?: Yes (3) Diabetes mellitus Qualifiers: Diabetes mellitus type: type 2 Diabetes mellitus ferry terminal agent insulin use: without nursing home use Diabetes mellitus complication status: with neurologic complications Diabetes mellitus complication detail: with polyneuropathy Qualified Code(s): E11.42 - Type 2 diabetes mellitus with diabetic polyneuropathy Is this a current diagnosis for this admission?: Yes (4) Malignant neoplasm of breast Qualifiers: Breast location: unspecified site of breast Estrogen receptor status: unspecified Patient sex: female Laterality: unspecified laterality Qualified Code(s): C50.919 - Malignant neoplasm of unspecified site of unspecified female breast Is this a current diagnosis for this admission?: Yes
[2018-07-27] MEDS: CETIRIZINE 5 MG TABLET PO SCH (22:06)
[2018-07-27] MEDS: ATORVASTATIN CALCIUM 20 MG TABLET PO SCH (22:06)
[2018-07-28 05:45] LABS: HEMATOCRIT 26.7 % (36.0-47.0); MEAN CORPUSCULAR HEMOGLOBIN 30.8 pg (27.0-33.4); MEAN CORPUSCULAR HGB CONC 33.5 g/dL (32.0-36.0); MEAN CORPUSCULAR VOLUME 92 fl (80-97); PLATELET COUNT 227 10^3/uL (150-450); RED BLOOD COUNT 2.91 10^6/uL (3.72-5.28); RED CELL DISTRIBUTION WIDTH 20.1 % (11.5-14.0); WHITE BLOOD COUNT 10.8 10^3/uL (4.0-10.5)
[2018-07-28 06:10] LABS: ALANINE AMINOTRANSFERASE 31 U/L (9-52); ALBUMIN 2.7 g/dL (3.5-5.0); ALKALINE PHOSPHATASE 67 U/L (38-126); ANION GAP 7 (5-19); ASPARTATE AMINO TRANSFERASE 17 U/L (14-36); BILIRUBIN,DIRECT 0.3 mg/dL (0.0-0.4); BILIRUBIN,TOTAL 0.3 mg/dL (0.2-1.3); BLOOD UREA NITROGEN 25 mg/dL (7-20); CALCIUM 8.8 mg/dL (8.4-10.2); CARBON DIOXIDE 23 mmol/L (22-30); CHLORIDE 110 mmol/L (98-107); GLUCOSE 113 mg/dL (75-110); POTASSIUM 4.1 mmol/L (3.6-5.0); TOTAL PROTEIN 5.5 g/dL (6.3-8.2)
[2018-07-28 06:12] LABS: ABSOLUTE LYMPHOCYTES# (MANUAL) 0.5 10^3/uL (0.5-4.7); ABSOLUTE MONOCYTES # (MANUAL) 0.5 10^3/uL (0.1-1.4); ABSOLUTE NEUTROPHILS# (MANUAL) 9.6 10^3/uL (1.7-8.2); BASOPHILS % (MANUAL) 0 % (0-2); EOSINOPHILS % (MANUAL) 1 % (0-6); LYMPHOCYTES % (MANUAL) 4 % (13-45); MONOCYTES % (MANUAL) 5 % (3-13); SEGMENTED NEUTROPHILS % (MAN) 89 % (42-78); TOTAL CELLS COUNTED 100
[2018-07-28 06:13] LABS: ANISOCYTOSIS 2+; HYPOCHROMASIA SLIGHT; PLATELET COMMENT ADEQUATE; POLYCHROMASIA SLIGHT
[2018-07-28 06:14] LABS: PLATELET CLUMPS PRESENT
[2018-07-28] MEDS: OXYCODONE HCL IR 5 MG TABLET PO PRN ×3 (10:01→22:04)
[2018-07-28] MEDS: FLUTICASONE/VILANTEROL 200-25 MCG/DOSE IH SCH (10:01)
[2018-07-28] MEDS: LISINOPRIL 5 MG TABLET PO SCH ×2 (10:02→21:29)
[2018-07-28] MEDS: GABAPENTIN 300 MG CAPSULE PO SCH ×2 (10:02→21:29)
[2018-07-28] MEDS: APIXABAN 5 MG TABLET PO SCH ×2 (10:02→21:29)
[2018-07-28] MEDS: METFORMIN HCL 500 MG TABLET PO SCH ×2 (10:02→18:46)
[2018-07-28] MEDS: ONDANSETRON 4 MG TAB.RAPDIS PO PRN (10:02)
[2018-07-28] MEDS: CITALOPRAM HYDROBROMIDE 20 MG TABLET PO SCH (10:02)
[2018-07-28] MEDS: LETROZOLE 2.5 MG TABLET PO SCH (10:03)
[2018-07-28] MEDS: DOCUSATE SODIUM 100 MG CAPSULE PO SCH (10:03)
[2018-07-28] MEDS: CEFEPIME 2 GM/D5W RTU 2 GM/50 ML RTUPB IV SCH ×2 (10:07→23:27)
[2018-07-28] MEDS: NORMAL SALINE 1000 ML 1,000 ML IV PRN (10:10)
[2018-07-28] MEDS: LEVALBUTEROL HCL NEB 0.63 MG/3 ML AMPUL NEB PRN (11:31)
[2018-07-28] MEDS: DILTIAZEM HCL 240 MG CAPSULE.CR PO SCH (13:28)
[2018-07-28] MEDS ORDERED: DILTIAZEM HCL INJ 25 MG/5 ML VIAL IV ONE (14:15)
--- NOTE | 2018-07-28 18:08 | PDOC PROGRESS REPORT ---
Subjective Progress Note for:: 07/28/18 Subjective:: Patient was seen by the bedside, she had episode of paroxysmal atrial fibrillation with rapid ventricular response, this was controlled with the bolus of Cardizem transitioned to p.o. Cardizem. Reason For Visit: BILATERAL PNEUMONIA, ACUTE HYPOXEMIC RESPIRATORY Physical Exam Vital Signs: Temp Pulse Resp BP Pulse Ox 97.9 F 125 H 14 98/52 L 93 07/28/18 11:25 07/28/18 14:00 07/28/18 11:31 07/28/18 11:25 07/28/18 11:31 Intake & Output 07/27/18 07/28/18 07/29/18 06:59 06:59 06:59 Intake Total 150 3660 300 Output Total 175 Balance 150 3485 300 Weight 91.6 kg 92 kg General appearance: PRESENT: no acute distress Head exam: PRESENT: atraumatic, normocephalic Eye exam: PRESENT: PERRLA Mouth exam: PRESENT: moist, tongue midline Neck exam: PRESENT: full ROM Respiratory exam: PRESENT: clear to auscultation alfonso Cardiovascular exam: PRESENT: RRR, +S1, +S2 Vascular exam: PRESENT: normal capillary refill GI/Abdominal exam: PRESENT: normal bowel sounds, soft Rectal exam: PRESENT: deferred Neurological exam: PRESENT: alert, CN II-XII grossly intact Psychiatric exam: PRESENT: appropriate affect, normal mood Skin exam: PRESENT: dry, intact, warm Results Laboratory Results: 07/28/18 05:30 07/28/18 05:30 07/28/18 07/28/18 05:30 05:30 WBC 10.8 H RBC 2.91 L Hgb 9.0 L Hct 26.7 L MCV 92 MCH 30.8 MCHC 33.5 RDW 20.1 H Plt Count 227 Seg Neutrophils % Not Reportable Lymphocytes % Not Reportable Monocytes % Not Reportable Eosinophils % Not Reportable Basophils % Not Reportable Absolute Neutrophils Not Reportable Absolute Lymphocytes Not Reportable Absolute Monocytes Not Reportable Absolute Eosinophils Not Reportable Absolute Basophils Not Reportable Sodium 140.0 Potassium 4.1 Chloride 110 H Carbon Dioxide 23 Anion Gap 7 BUN 25 H Creatinine 0.88 Est GFR ( Amer) > 60 Est GFR (Non-Af Amer) > 60 Glucose 113 H Calcium 8.8 Total Bilirubin 0.3 AST 17 ALT 31 Alkaline Phosphatase 67 Total Protein 5.5 L Albumin 2.7 L 07/26/18 07/26/18 07/26/18 15:25 15:25 16:05 Creatine Kinase 27 L CK-MB (CK-2) 0.23 Troponin I < 0.012 NT-Pro-B Natriuret Pep 688 07/26/18 07/27/18 07/27/18 18:35 00:15 00:15 Creatine Kinase 20 L CK-MB (CK-2) < 0.22 Troponin I < 0.012 < 0.012 NT-Pro-B Natriuret Pep Impressions: Chest X-Ray 07/26/18 15:08 IMPRESSION: No acute findings. Old left mastectomy. Chest/Abdomen CTA 07/26/18 17:03 IMPRESSION: No evidence of pulmonary embolus. Bilateral consolidations and left pleural effusion. Underlying masses are not excluded. Pulmonary interstitial disease. Edema is seen in the subcutaneous fat bilaterally, right greater than left. See additional findings above. Assessment & Plan - Diagnosis (1) Bilateral pneumonia Qualifiers: Pneumonia type: due to unspecified organism Lung location: unspecified part of lung Qualified Code(s): J18.9 - Pneumonia, unspecified organism Is this a current diagnosis for this admission?: Yes Plan: Continue IV antibiotic (2) Chronic obstructive pulmonary disease Qualifiers: COPD type: unspecified COPD Qualified Code(s): J44.9 - Chronic obstructive pulmonary disease, unspecified Is this a current diagnosis for this admission?: Yes (3) Diabetes mellitus Qualifiers: Diabetes mellitus type: type 2 Diabetes mellitus trimming press operator insulin use: without trimming press operator use Diabetes mellitus complication status: with neurologic complications Diabetes mellitus complication detail: with polyneuropathy Qualified Code(s): E11.42 - Type 2 diabetes mellitus with diabetic polyne uropathy Is this a current diagnosis for this admission?: Yes (4) Malignant neoplasm of breast Qualifiers: Breast location: unspecified site of breast Estrogen receptor status: unspecified Patient sex: female Laterality: unspecified laterality Qualified Code(s): C50.919 - Malignant neoplasm of unspecified site of uns pecified female breast Is this a current diagnosis for this admission?: Yes (5) Paroxysmal atrial fibrillation Is this a current diagnosis for this admission?: Yes Plan: Start PO Cardizem
--- NOTE | 2018-07-28 18:45 | EKG REPORT ---
SEVERITY:- ABNORMAL ECG - ATRIAL FIBRILLATION WITH RAPID V-RATE REPOLARIZATION ABNORMALITY, PROB RATE RELATED : Confirmed by: Michael Waters MD 28-Jul-2018 18:44:32
[2018-07-28] MEDS: ATORVASTATIN CALCIUM 20 MG TABLET PO SCH (21:29)
[2018-07-28] MEDS: CETIRIZINE 5 MG TABLET PO SCH (21:30)
[2018-07-28] MEDS: LEVOFLOXACIN 750 MG/D5W RTU 750 MG/150 ML RTUPB IV SCH (21:32)
[2018-07-28] MEDS ORDERED: CEFEPIME 2 GM/D5W RTU 2 GM/50 ML RTUPB IV ONE (23:16)
[2018-07-29 01:38] LABS: APPEARANCE,URINE CLEAR; BILIRUBIN,URINE NEGATIVE (NEGATIVE); COLOR,URINE YELLOW; GLUCOSE, URINE NEGATIVE (NEGATIVE); KETONES,URINE NEGATIVE (NEGATIVE); LEUKOCYTE ESTERASE,URINE NEGATIVE (NEGATIVE); NITRITE,URINE NEGATIVE (NEGATIVE); PROTEIN,URINE NEGATIVE (NEGATIVE); UROBILINOGEN,URINE NEGATIVE mg/dL (<2.0)
[2018-07-29 05:41] LABS: ABSOLUTE EOSINOPHILS # (AUTO) 0.2 10^3/uL (0.0-0.6); ABSOLUTE LYMPHOCYTES (AUTO) 0.5 10^3/uL (0.5-4.7); ABSOLUTE MONOCYTES (AUTO) 0.6 10^3/uL (0.1-1.4); ABSOLUTE NEUT (AUTO) 6.8 10^3/uL (1.7-8.2); BASOPHILS % (AUTO) 0.5 % (0-2); EOSINOPHILS % (AUTO) 2.4 % (0-6); HEMATOCRIT 29.1 % (36.0-47.0); HEMOGLOBIN 9.7 g/dL (12.0-15.5); LYMPHOCYTES % (AUTO) 6.6 % (13-45); MEAN CORPUSCULAR HEMOGLOBIN 30.4 pg (27.0-33.4); MEAN CORPUSCULAR HGB CONC 33.2 g/dL (32.0-36.0); MEAN CORPUSCULAR VOLUME 92 fl (80-97); MONOCYTES % (AUTO) 7.8 % (3-13); PLATELET COUNT 256 10^3/uL (150-450); RED BLOOD COUNT 3.18 10^6/uL (3.72-5.28); RED CELL DISTRIBUTION WIDTH 20.3 % (11.5-14.0); SEGMENTED NEUTROPHILS % (AUTO) 82.7 % (42-78); TOTAL CELLS COUNTED % (AUTO) 100 %; WHITE BLOOD COUNT 8.2 10^3/uL (4.0-10.5)
[2018-07-29 05:59] LABS: ALANINE AMINOTRANSFERASE 25 U/L (9-52); ALBUMIN 2.6 g/dL (3.5-5.0); ALKALINE PHOSPHATASE 68 U/L (38-126); ANION GAP 7 (5-19); ASPARTATE AMINO TRANSFERASE 13 U/L (14-36); BILIRUBIN,DIRECT 0.3 mg/dL (0.0-0.4); BILIRUBIN,TOTAL 0.3 mg/dL (0.2-1.3); BLOOD UREA NITROGEN 23 mg/dL (7-20); CALCIUM 8.5 mg/dL (8.4-10.2); CARBON DIOXIDE 22 mmol/L (22-30); CHLORIDE 108 mmol/L (98-107); GLUCOSE 115 mg/dL (75-110); POTASSIUM 4.3 mmol/L (3.6-5.0); SODIUM 136.7 mmol/L (137-145); TOTAL PROTEIN 5.3 g/dL (6.3-8.2)
[2018-07-29] MEDS: DILTIAZEM HCL 240 MG CAPSULE.CR PO SCH (11:10)
[2018-07-29] MEDS: GABAPENTIN 300 MG CAPSULE PO SCH ×2 (11:10→21:29)
[2018-07-29] MEDS: METFORMIN HCL 500 MG TABLET PO SCH ×2 (11:10→19:24)
[2018-07-29] MEDS: DOCUSATE SODIUM 100 MG CAPSULE PO SCH (11:10)
[2018-07-29] MEDS: APIXABAN 5 MG TABLET PO SCH ×2 (11:10→21:29)
[2018-07-29] MEDS: CITALOPRAM HYDROBROMIDE 20 MG TABLET PO SCH (11:11)
[2018-07-29] MEDS: FLUTICASONE/VILANTEROL 200-25 MCG/DOSE IH SCH (11:11)
[2018-07-29] MEDS: LISINOPRIL 5 MG TABLET PO SCH ×2 (11:11→21:29)
[2018-07-29] MEDS: OXYCODONE HCL IR 5 MG TABLET PO PRN ×2 (11:11→20:29)
[2018-07-29] MEDS: LETROZOLE 2.5 MG TABLET PO SCH (11:14)
[2018-07-29] MEDS: CEFEPIME 2 GM/D5W RTU 2 GM/50 ML RTUPB IV SCH (11:16)
[2018-07-29] MEDS ORDERED: DIPHENHYDRAMINE HCL 50 MG/ML VIAL ONE (13:27)
[2018-07-29] MEDS: LEVALBUTEROL HCL NEB 0.63 MG/3 ML AMPUL NEB PRN (14:36)
[2018-07-29] MEDS: ONDANSETRON 4 MG TAB.RAPDIS PO PRN (18:57)
[2018-07-29] MEDS ORDERED: ONDANSETRON HCL INJ/PF 4 MG/2 ML SDV ONE (19:15)
[2018-07-29] MEDS ORDERED: ONDANSETRON HCL INJ/PF 4 MG/2 ML SDV IV PRN (19:20)
[2018-07-29] MEDS: LEVOFLOXACIN 750 MG/D5W RTU 750 MG/150 ML RTUPB IV SCH (21:28)
[2018-07-29] MEDS: ATORVASTATIN CALCIUM 20 MG TABLET PO SCH (21:29)
[2018-07-29] MEDS: CETIRIZINE 5 MG TABLET PO SCH (21:29)
--- NOTE | 2018-07-29 21:37 | RADIOLOGY REPORT (SQ) ---
EXAM DESCRIPTION: Chest one view CLINICAL HISTORY: 72 years Female, pneumonia COMPARISON: 07/26/2018 FINDINGS: Slightly increased interstitial markings in both lungs are similar to the prior study. There is no new infiltrate. No significant focal consolidation. No pneumothorax or pleural effusion. Mediastinum is unchanged. No shift or widening. Right IJ port remains in place, tip in the SVC. Chronic changes of the left shoulder are again noted. Bilateral chest wall surgical clips are again noted. IMPRESSION: 1. No significant change since 07/26/2018
--- NOTE | 2018-07-29 22:38 | PDOC PROGRESS REPORT ---
Subjective Progress Note for:: 07/29/18 Subjective:: Patient seen by the bedside,she has no new complants Reason For Visit: BILATERAL PNEUMONIA, ACUTE HYPOXEMIC RESPIRATORY Physical Exam Vital Signs: Temp Pulse Resp BP Pulse Ox 98.4 F 115 H 20 115/57 L 94 07/29/18 19:32 07/29/18 19:32 07/29/18 19:32 07/29/18 19:32 07/29/18 19:32 Intake & Output 07/28/18 07/29/18 07/30/18 06:59 06:59 06:59 Intake Total 3660 1200 350 Output Total 175 1300 Balance 3485 1200 -950 Weight 92 kg 93.5 kg General appearance: PRESENT: no acute distress Eye exam: PRESENT: PERRLA Respiratory exam: PRESENT: clear to auscultation alfonso Cardiovascular exam: PRESENT: +S1, +S2 GI/Abdominal exam: PRESENT: soft Neurological exam: PRESENT: alert Results Laboratory Results: 07/29/18 05:22 07/29/18 05:22 07/29/18 07/29/18 07/29/18 01:28 05:22 05:22 WBC 8.2 RBC 3.18 L Hgb 9.7 L Hct 29.1 L MCV 92 MCH 30.4 MCHC 33.2 RDW 20.3 H Plt Count 256 Seg Neutrophils % 82.7 H Lymphocytes % 6.6 L Monocytes % 7.8 Eosinophils % 2.4 Basophils % 0.5 Absolute Neutrophils 6.8 Absolute Lymphocytes 0.5 Absolute Monocytes 0.6 Absolute Eosinophils 0.2 Absolute Basophils 0.0 Sodium 136.7 L Potassium 4.3 Chloride 108 H Carbon Dioxide 22 Anion Gap 7 BUN 23 H Creatinine 0.91 Est GFR ( Amer) > 60 Est GFR (Non-Af Amer) > 60 Glucose 115 H Calcium 8.5 Total Bilirubin 0.3 AST 13 L ALT 25 Alkaline Phosphatase 68 Total Protein 5.3 L Albumin 2.6 L Urine Color YELLOW Urine Appearance CLEAR Urine pH 5.0 Ur Specific [place] 1.020 Urine Protein NEGATIVE Urine Glucose (UA) NEGATIVE Urine Ketones NEGATIVE Urine Blood NEGATIVE Urine Nitrite NEGATIVE Ur Leukocyte Esterase NEGATIVE Urine WBC (Auto) 3 Urine RBC (Auto) 0 07/26/18 07/26/18 07/26/18 15:25 15:25 16:05 Creatine Kinase 27 L CK-MB (CK-2) 0.23 Troponin I < 0.012 NT-Pro-B Natriuret Pep 688 07/26/18 07/27/18 07/27/18 18:35 00:15 00:15 Creatine Kinase 20 L CK-MB (CK-2) < 0.22 Troponin I < 0.012 < 0.012 NT-Pro-B Natriuret Pep Impressions: Chest/Abdomen CTA 07/26/18 17:03 IMPRESSION: No evidence of pulmonary embolus. Bilateral consolidations and left pleural effusion. Underlying masses are not excluded. Pulmonary interstitial disease. Edema is seen in the subcutaneous fat bilaterally, right greater than left. See additional findings above. Chest X-Ray 07/29/18 00:00 IMPRESSION: 1. No significant change since 07/26/2018 Assessment & Plan - Diagnosis (1) Bilateral pneumonia Qualifiers: Pneumonia type: due to unspecified organism Lung location: unspecified part of lung Qualified Code(s): J18.9 - Pneumonia, unspecified organism Is this a current diagnosis for this admission?: Yes (2) Chronic obstructive pulmonary disease Qualifiers: COPD type: unspecified COPD Qualified Code(s): J44.9 - Chronic obstructive pulmonary disease, unspecified Is this a current diagnosis for this admission?: Yes (3) Diabetes mellitus Qualifiers: Diabetes mellitus type: type 2 Diabetes mellitus fpc insulin use: without intermediate project manager use Diabetes mellitus complication status: with neurologic complications Diabetes mellitus complication detail: with polyneuropathy Qualified Code(s): E11.42 - Type 2 diabetes mellitus with diabetic polyneuropathy Is this a current diagnosis for this admission?: Yes (4) Malignant neoplasm of breast Qualifiers: Breast location: unspecified site of breast Estrogen receptor status: unspecified Patient sex: female Laterality: unspecified laterality Qualified Code(s): C50.919 - Malignant neoplasm of unspecified site of unspecified female breast Is this a current diagnosis for this admission?: Yes (5) Paroxysmal atrial fibrillation Is this a current diagnosis for this admission?: Yes - Plan Summary Plan Summary: The CXR did not show any significant change ,no specific pathogen identified ,will discontinue cefepime
[2018-07-30] MEDS: CEFEPIME 2 GM/D5W RTU 2 GM/50 ML RTUPB IV SCH ×3 (00:41→23:25)
[2018-07-30] MEDS: OXYCODONE HCL IR 5 MG TABLET PO PRN ×3 (07:56→21:53)
[2018-07-30] MEDS: FLUTICASONE/VILANTEROL 200-25 MCG/DOSE IH SCH (09:51)
[2018-07-30] MEDS: GABAPENTIN 300 MG CAPSULE PO SCH ×2 (09:52→21:52)
[2018-07-30] MEDS: METFORMIN HCL 500 MG TABLET PO SCH ×2 (09:52→17:16)
[2018-07-30] MEDS: DILTIAZEM HCL 240 MG CAPSULE.CR PO SCH (09:52)
[2018-07-30] MEDS: LISINOPRIL 5 MG TABLET PO SCH ×2 (09:53→21:53)
[2018-07-30] MEDS: APIXABAN 5 MG TABLET PO SCH ×2 (09:53→21:52)
[2018-07-30] MEDS: DOCUSATE SODIUM 100 MG CAPSULE PO SCH (09:53)
[2018-07-30] MEDS: CITALOPRAM HYDROBROMIDE 20 MG TABLET PO SCH (09:53)
[2018-07-30] MEDS: LETROZOLE 2.5 MG TABLET PO SCH (09:55)
[2018-07-30] MEDS: LEVOFLOXACIN 750 MG/D5W RTU 750 MG/150 ML RTUPB IV SCH (21:52)
[2018-07-30] MEDS: ATORVASTATIN CALCIUM 20 MG TABLET PO SCH (21:53)
[2018-07-30] MEDS: CETIRIZINE 5 MG TABLET PO SCH (21:53)
--- NOTE | 2018-07-30 22:21 | PDOC PROGRESS REPORT ---
Subjective Progress Note for:: 07/30/18 Subjective:: Patient seen by the bedside,the CXR showed no significant change Reason For Visit: BILATERAL PNEUMONIA, ACUTE HYPOXEMIC RESPIRATORY Physical Exam Vital Signs: Temp Pulse Resp BP Pulse Ox 98.7 F 95 14 113/48 L 96 07/30/18 20:57 07/30/18 20:57 07/30/18 20:57 07/30/18 20:57 07/30/18 20:57 Intake & Output 07/29/18 07/30/18 07/31/18 06:59 06:59 06:59 Intake Total 1200 790 300 Output Total 2900 1000 Balance 1200 -2110 -700 Weight 93.5 kg 91 kg General appearance: PRESENT: no acute distress Eye exam: PRESENT: PERRLA Respiratory exam: PRESENT: rhonchi Cardiovascular exam: PRESENT: +S1, +S2 GI/Abdominal exam: PRESENT: soft Neurological exam: PRESENT: alert Results Laboratory Results: 07/29/18 05:22 07/29/18 05:22 07/26/18 07/26/18 07/26/18 15:25 15:25 16:05 Creatine Kinase 27 L CK-MB (CK-2) 0.23 Troponin I < 0.012 NT-Pro-B Natriuret Pep 688 07/26/18 07/27/18 07/27/18 18:35 00:15 00:15 Creatine Kinase 20 L CK-MB (CK-2) < 0.22 Troponin I < 0.012 < 0.012 NT-Pro-B Natriuret Pep Impressions: Chest/Abdomen CTA 07/26/18 17:03 IMPRESSION: No evidence of pulmonary embolus. Bilateral consolidations and left pleural effusion. Underlying masses are not excluded. Pulmonary interstitial disease. Edema is seen in the subcutaneous fat bilaterally, right greater than left. See additional findings above. Chest X-Ray 07/29/18 00:00 IMPRESSION: 1. No significant change since 07/26/2018 Assessment & Plan - Diagnosis (1) Bilateral pneumonia Qualifiers: Pneumonia type: due to unspecified organism Lung location: unspecified part of lung Qualified Code(s): J18.9 - Pneumonia, unspecified organism Is this a current diagnosis for this admission?: Yes Plan: Continue IV antibiotic (2) Chronic obstructive pulmonary disease Qualifiers: COPD type: unspecified COPD Qualified Code(s): J44.9 - Chronic obstructive pulmonary disease, unspecified Is this a current diagnosis for this admission?: Yes (3) Diabetes mellitus Qualifiers: Diabetes mellitus type: type 2 Diabetes mellitus penitentiary insulin use: without penitentiary use Diabetes mellitus complication status: with neurologic complications Diabetes mellitus complication detail: with polyneuropathy Qualified Code(s): E11.42 - Type 2 diabetes mellitus with diabetic polyneuropathy Is this a current diagnosis for this admission?: Yes (4) Malignant neoplasm of breast Qualifiers: Breast location: unspecified site of breast Estrogen receptor status: unspecified Patient sex: female Laterality: unspecified laterality Qualified Code(s): C50.919 - Malignant neoplasm of unspecified site of unspecified female breast Is this a current diagnosis for this admission?: Yes (5) Paroxysmal atrial fibrillation Is this a current diagnosis for this admission?: Yes
[2018-07-31] MEDS: ONDANSETRON 4 MG TAB.RAPDIS PO PRN ×2 (00:21→05:08)
[2018-07-31] MEDS ORDERED: METOPROLOL TARTRATE PF/INJ 5 MG/5 ML SDV IV ONE (05:40)
[2018-07-31] MEDS ORDERED: METOPROLOL TARTRATE PF/INJ 5 MG/5 ML SDV IV PRN (05:42)
[2018-07-31 06:46] LABS: HEMATOCRIT 32.5 % (36.0-47.0); MEAN CORPUSCULAR HEMOGLOBIN 30.8 pg (27.0-33.4); MEAN CORPUSCULAR HGB CONC 33.7 g/dL (32.0-36.0); MEAN CORPUSCULAR VOLUME 91 fl (80-97); PLATELET COUNT 299 10^3/uL (150-450); RED BLOOD COUNT 3.56 10^6/uL (3.72-5.28); RED CELL DISTRIBUTION WIDTH 19.9 % (11.5-14.0); WHITE BLOOD COUNT 10.7 10^3/uL (4.0-10.5)
[2018-07-31 07:08] LABS: ANION GAP 12 (5-19); BLOOD UREA NITROGEN 23 mg/dL (7-20); CALCIUM 8.9 mg/dL (8.4-10.2); CARBON DIOXIDE 22 mmol/L (22-30); CHLORIDE 103 mmol/L (98-107); GLUCOSE 161 mg/dL (75-110); POTASSIUM 4.3 mmol/L (3.6-5.0); SODIUM 136.5 mmol/L (137-145)
[2018-07-31 07:10] LABS: CREATINE KINASE < 20 U/L (30-135)
[2018-07-31 07:12] LABS: CREATINE KINASE MB 0.46 ng/mL (<4.55)
[2018-07-31 07:17] LABS: TROPONIN I < 0.012 ng/mL
[2018-07-31] MEDS: CEFEPIME 2 GM/D5W RTU 2 GM/50 ML RTUPB IV SCH ×2 (10:13→22:00)
[2018-07-31] MEDS: DILTIAZEM HCL 240 MG CAPSULE.CR PO SCH (10:14)
[2018-07-31] MEDS: LISINOPRIL 5 MG TABLET PO SCH ×2 (10:14→22:08)
[2018-07-31] MEDS: CITALOPRAM HYDROBROMIDE 20 MG TABLET PO SCH (10:14)
[2018-07-31] MEDS: APIXABAN 5 MG TABLET PO SCH ×2 (10:14→22:00)
[2018-07-31] MEDS: METFORMIN HCL 500 MG TABLET PO SCH ×2 (10:14→17:25)
[2018-07-31] MEDS: GABAPENTIN 300 MG CAPSULE PO SCH ×2 (10:14→22:00)
[2018-07-31] MEDS: DOCUSATE SODIUM 100 MG CAPSULE PO SCH (10:14)
[2018-07-31] MEDS: FLUTICASONE/VILANTEROL 200-25 MCG/DOSE IH SCH (10:15)
[2018-07-31] MEDS: LETROZOLE 2.5 MG TABLET PO SCH (10:15)
[2018-07-31] MEDS: OXYCODONE HCL IR 5 MG TABLET PO PRN ×2 (10:21→17:26)
--- NOTE | 2018-07-31 19:18 | PDOC PROGRESS REPORT ---
Subjective Progress Note for:: 07/31/18 Subjective:: She was seen by the bedside, she had episode of rapid ventricular response due to A. fib yesterday Reason For Visit: BILATERAL PNEUMONIA, ACUTE HYPOXEMIC RESPIRATORY Physical Exam Vital Signs: Temp Pulse Resp BP Pulse Ox 97.5 F 62 20 98/51 L 99 07/31/18 15:59 07/31/18 15:59 07/31/18 15:59 07/31/18 15:59 07/31/18 15:59 Intake & Output 07/30/18 07/31/18 08/01/18 06:59 06:59 06:59 Intake Total 790 1050 50 Output Total 2900 1000 Balance -2110 50 50 Weight 91 kg 91.7 kg General appearance: PRESENT: no acute distress Eye exam: PRESENT: PERRLA Respiratory exam: PRESENT: clear to auscultation alfonso Cardiovascular exam: PRESENT: +S1, +S2 GI/Abdominal exam: PRESENT: soft Neurological exam: PRESENT: alert Results Laboratory Results: 07/31/18 06:26 07/31/18 06:26 07/31/18 07/31/18 06:26 06:26 WBC 10.7 H RBC 3.56 L Hgb 11.0 L Hct 32.5 L MCV 91 MCH 30.8 MCHC 33.7 RDW 19.9 H Plt Count 299 Sodium 136.5 L Potassium 4.3 Chloride 103 Carbon Dioxide 22 Anion Gap 12 BUN 23 H Creatinine 0.91 Est GFR ( Amer) > 60 Est GFR (Non-Af Amer) > 60 Glucose 161 H Calcium 8.9 Magnesium 1.7 07/26/18 18:35 Blood Blood Culture - Final NO GROWTH IN 5 DAYS 07/26/18 15:25 Blood Blood Culture - Final NO GROWTH IN 5 DAYS 07/29/18 01:28 Clean Catch Midstream Urine Culture - Final NO GROWTH 2 DAYS 07/26/18 07/26/18 07/26/18 15:25 15:25 16:05 Creatine Kinase 27 L CK-MB (CK-2) 0.23 Troponin I < 0.012 NT-Pro-B Natriuret Pep 688 07/26/18 07/27/18 07/27/18 18:35 00:15 00:15 Creatine Kinase 20 L CK-MB (CK-2) < 0.22 Troponin I < 0.012 < 0.012 NT-Pro-B Natriuret Pep 07/31/18 07/31/18 06:26 06:26 Creatine Kinase < 20 L CK-MB (CK-2) 0.46 Troponin I < 0.012 NT-Pro-B Natriuret Pep Impressions: Chest/Abdomen CTA 07/26/18 17:03 IMPRESSION: No evidence of pulmonary embolus. Bilateral consolidations and left pleural effusion. Underlying masses are not excluded. Pulmonary interstitial disease. Edema is seen in the subcutaneous fat bilaterally, right greater than left. See additional findings above. Chest X-Ray 07/29/18 00:00 IMPRESSION: 1. No significant change since 07/26/2018 Assessment & Plan - Diagnosis (1) Bilateral pneumonia Qualifiers: Pneumonia type: due to unspecified organism Lung location: unspecified part of lung Qualified Code(s): J18.9 - Pneumonia, unspecified organism Is this a current diagnosis for this admission?: Yes Plan: Continue IV antibiotic (2) Chronic obstructive pulmonary disease Qualifiers: COPD type: unspecified COPD Qualified Code(s): J44.9 - Chronic obstructive pulmonary disease, unspecified Is this a current diagnosis for this admission?: Yes (3) Diabetes mellitus Qualifiers: Diabetes mellitus type: type 2 Diabetes mellitus intermodal dispatcher insulin use: without mcc use Diabetes mellitus complication status: with neurologic complications Diabetes mellitus complication detail: with polyneuropathy Qualified Code(s): E11.42 - Type 2 diabetes mellitus with diabetic polyneuropathy Is this a current diagnosis for this admission?: Yes (4) Malignant neoplasm of breast Qualifiers: Breast location: unspecified site of breast Estrogen receptor status: unspecified Patient sex: female Laterality: unspecified laterality Qualified Code(s): C50.919 - Malignant neoplasm of unspecified site of unspecified female breast Is this a current diagnosis for this admission?: Yes (5) Paroxysmal atrial fibrillation Is this a current diagnosis for this admission?: Yes Plan: presently on cardizem and prn lopressor
[2018-07-31] MEDS ORDERED: PANTOPRAZOLE SODIUM 40 MG TABLET.DR PO ONE (21:45)
[2018-07-31] MEDS: CETIRIZINE 5 MG TABLET PO SCH (22:00)
[2018-07-31] MEDS: ATORVASTATIN CALCIUM 20 MG TABLET PO SCH (22:00)
[2018-07-31] MEDS: LEVOFLOXACIN 750 MG/D5W RTU 750 MG/150 ML RTUPB IV SCH (22:53)
[2018-08-01] MEDS: PANTOPRAZOLE SODIUM 40 MG TABLET.DR PO SCH (06:37)
[2018-08-01] MEDS: APIXABAN 5 MG TABLET PO SCH ×2 (10:18→22:12)
[2018-08-01] MEDS: DOCUSATE SODIUM 100 MG CAPSULE PO SCH (10:18)
[2018-08-01] MEDS: GABAPENTIN 300 MG CAPSULE PO SCH ×2 (10:18→22:12)
[2018-08-01] MEDS: FLUTICASONE/VILANTEROL 200-25 MCG/DOSE IH SCH (10:18)
[2018-08-01] MEDS: DILTIAZEM HCL 240 MG CAPSULE.CR PO SCH (10:18)
[2018-08-01] MEDS: CITALOPRAM HYDROBROMIDE 20 MG TABLET PO SCH (10:18)
[2018-08-01] MEDS: LISINOPRIL 5 MG TABLET PO SCH ×2 (10:19→22:13)
[2018-08-01] MEDS: METFORMIN HCL 500 MG TABLET PO SCH ×2 (10:19→17:01)
[2018-08-01] MEDS: DIPHENHYDRAMINE HCL 50 MG/ML VIAL IV PRN ×2 (10:19→22:14)
[2018-08-01] MEDS: LETROZOLE 2.5 MG TABLET PO SCH (10:22)
[2018-08-01] MEDS: OXYCODONE HCL IR 5 MG TABLET PO PRN ×3 (10:29→23:27)
[2018-08-01] MEDS: CEFEPIME 2 GM/D5W RTU 2 GM/50 ML RTUPB IV SCH (10:40)
--- NOTE | 2018-08-01 20:04 | PDOC TRANSFER SUMMARY ---
General - Admit/Disc Date/PCP Admission Date/Primary Care Provider: 07/26/18 21:56 CARLO CRAWFORD MD Discharge Date: 08/02/18 - Discharge Diagnosis (1) Bilateral pneumonia Is this a current diagnosis for this admission?: Yes (2) Chronic obstructive pulmonary disease Is this a current diagnosis for this admission?: Yes (3) Diabetes mellitus Is this a current diagnosis for this admission?: Yes (4) Malignant neoplasm of breast Is this a current diagnosis for this admission?: Yes (5) Paroxysmal atrial fibrillation Is this a current diagnosis for this admission?: Yes - Additional Information Home Medications: Apixaban [Eliquis 5 mg Tablet] 5 mg PO Q12 07/27/18 Atorvastatin Calcium [Lipitor 20 mg Tablet] 20 mg PO QHS 07/27/18 Citalopram Hydrobromide [Celexa 20 mg Tablet] 20 mg PO DAILY 07/27/18 Docusate Sodium [Colace 100 mg Capsule] 100 mg PO DAILY 07/27/18 Fluticasone/Vilanterol [Breo 200-25 Mcg Ellipta 14 Dose/Dpi] 1 puff IH DAILY 07/27/18 Gabapentin [Neurontin] 600 mg PO BID 07/27/18 Guaifenesin [Robitussin Syrup 200 mg/10 ml Ud Cup] 10 ml PO Q4HP PRN 07/27/18 Levocetirizine Dihydrochloride [Xyzal] 5 mg PO QHS 07/27/18 Lisinopril [Prinivil 5 mg Tablet] 5 mg PO Q12 07/27/18 Metformin HCl [Glucophage] 1,000 mg PO BID 07/27/18 Methotrexate Sodium [Rheumatrex 2.5 mg Tablet] 7.5 mg PO LOPEZ@1000 07/27/18 Oxycodone HCl [Oxycodone HCl 10 MG Tablet] 10 mg PO Q6HP PRN 07/27/18 Diltiazem HCl [Cardizem Cd 240 mg Capsule.cr] 240 mg PO DAILY capsule.cr 08/01/18 Letrozole [Femara 2.5 mg Tablet] 2.5 mg PO DAILY tablet 08/01/18 History of Present Illness Admission Date/PCP: 07/26/18 21:56 CARLO CRAWFORD MD History of Present Illness: RICK ROMANO is a 72 year old female, Patient is presently a resident of assisted living facility at [facility], she was transferred from the facility to the emergency room for evaluation of shortness of breath, fever and cough in the emergency room she was evaluated CT chest angiography was obtained, it demonstrated consolidation and atelectasis involving each lung base there is a small left pleural effusion. Also found was IVC filter in place there was no evidence of pulmonary embolus The arterial blood gas on FiO2 50%, pH 7.49, PCO2 94.1, bicarbonate 25.2, PCO2 33.9 Hospital Course Hospital Course: Patient was admitted for the management of pneumonia no specific pathogen was cultured from the blood oR the sputum, she was empirically treated with intravenous cefepime and Levaquin. She also had episode of paroxysmal atrial fibrillation with rapid ventricular response, she was treated with Cardizem infusion ultimately transitioned to p.o. Cardizem. Physical Exam Vital Signs: Temp Pulse Resp BP Pulse Ox 98.1 F 67 16 92/47 L 99 08/01/18 11:50 08/01/18 14:00 08/01/18 11:50 08/01/18 11:50 08/01/18 16:11 Intake & Output 07/31/18 08/01/18 08/02/18 06:59 06:59 06:59 Intake Total 1050 1087 50 Output Total 1000 Balance 50 1087 50 Weight 91.7 kg 91 kg General appearance: PRESENT: no acute distress Head exam: PRESENT: atraumatic, normocephalic Eye exam: PRESENT: PERRLA Respiratory exam: PRESENT: clear to auscultation alfonso Cardiovascular exam: PRESENT: RRR, +S1, +S2 GI/Abdominal exam: PRESENT: normal bowel sounds, soft Rectal exam: PRESENT: deferred Extremities exam: PRESENT: full ROM Neurological exam: PRESENT: alert, CN II-XII grossly intact Psychiatric exam: PRESENT: appropriate affect, normal mood Skin exam: PRESENT: dry, intact, warm Results Laboratory Results: 07/31/18 06:26 07/31/18 06:26 07/27/18 15:10 Blood Blood Culture - Final NO GROWTH IN 5 DAYS 07/27/18 12:50 Blood Blood Culture - Final NO GROWTH IN 5 DAYS 07/26/18 18:35 Blood Blood Culture - Final NO GROWTH IN 5 DAYS 07/26/18 15:25 Blood Blood Culture - Final NO GROWTH IN 5 DAYS 07/26/18 07/26/18 07/26/18 15:25 15:25 16:05 Creatine Kinase 27 L CK-MB (CK-2) 0.23 Troponin I < 0.012 NT-Pro-B Natriuret Pep 688 07/26/18 07/27/18 07/27/18 18:35 00:15 00:15 Creatine Kinase 20 L CK-MB (CK-2) < 0.22 Troponin I < 0.012 < 0.012 NT-Pro-B Natriuret Pep 07/31/18 07/31/18 06:26 06:26 Creatine Kinase < 20 L CK-MB (CK-2) 0.46 Troponin I < 0.012 NT-Pro-B Natriuret Pep Impressions: Chest/Abdomen CTA 07/26/18 17:03 IMPRESSION: No evidence of pulmonary embolus. Bilateral consolidations and left pleural effusion. Underlying masses are not excluded. Pulmonary interstitial disease. Edema is seen in the subcutaneous fat bilaterally, right greater than left. See additional findings above. Chest X-Ray 07/29/18 00:00 IMPRESSION: 1. No significant change since 07/26/2018 Qualifiers - * PATIENT BEING DISCHARGED WITH ANY OF THE FOLLOWING DIAGNOSIS: No
[2018-08-01] MEDS: ATORVASTATIN CALCIUM 20 MG TABLET PO SCH (22:12)
[2018-08-01] MEDS: LEVOFLOXACIN 750 MG/D5W RTU 750 MG/150 ML RTUPB IV SCH (22:12)
[2018-08-01] MEDS: CEFEPIME HCL 2 GM in DEXTROSE 5%-WATER 50 ML IV SCH (22:13)
[2018-08-01] MEDS: CETIRIZINE 5 MG TABLET PO SCH (22:14)
[2018-08-02] MEDS: PANTOPRAZOLE SODIUM 40 MG TABLET.DR PO SCH (05:26)
[2018-08-02 08:36] VITALS: BP 119/53
[2018-08-02] MEDS: CEFEPIME HCL 2 GM in DEXTROSE 5%-WATER 50 ML IV SCH (09:03)
[2018-08-02] MEDS: FLUTICASONE/VILANTEROL 200-25 MCG/DOSE IH SCH (09:07)
[2018-08-02] MEDS: APIXABAN 5 MG TABLET PO SCH (09:08)
[2018-08-02] MEDS: LETROZOLE 2.5 MG TABLET PO SCH (09:08)
[2018-08-02] MEDS: CITALOPRAM HYDROBROMIDE 20 MG TABLET PO SCH (09:08)
[2018-08-02] MEDS: DILTIAZEM HCL 240 MG CAPSULE.CR PO SCH (09:08)
[2018-08-02] MEDS: DOCUSATE SODIUM 100 MG CAPSULE PO SCH (09:08)
[2018-08-02] MEDS: LISINOPRIL 5 MG TABLET PO SCH (09:09)
[2018-08-02] MEDS: METFORMIN HCL 500 MG TABLET PO SCH (09:09)
[2018-08-02] MEDS: GABAPENTIN 300 MG CAPSULE PO SCH (09:09)
[2018-08-02] MEDS: OXYCODONE HCL IR 5 MG TABLET PO PRN (09:13)
== END 2018-08-02 12:00 | DRG 194 ==
LOC: ER 15:05 → EH 21:56 → 3S 07-27 03:39
PROVIDERS: ADMIT Internal Medicine; ATTEND Internal Medicine
PROC: 5A09557 Assistance with Respiratory Ventilation, Greater than 96 Consecutive Hours, Continuous Positive Airway Pressure (ICD-10-PCS; principal; 2018-07-26)
DX: J18.9 Pneumonia, unspecified organism (principal); J44.0 Chronic obstructive pulmonary disease with (acute) lower respiratory infection; I10 Essential (primary) hypertension; J44.9 Chronic obstructive pulmonary disease, unspecified; E78.5 Hyperlipidemia, unspecified; E11.42 Type 2 diabetes mellitus with diabetic polyneuropathy; K21.9 Gastro-esophageal reflux disease without esophagitis; I48.0 Paroxysmal atrial fibrillation; M19.90 Unspecified osteoarthritis, unspecified site; M06.9 Rheumatoid arthritis, unspecified; F31.9 Bipolar disorder, unspecified; Z96.653 Presence of artificial knee joint, bilateral; Z87.891 Personal history of nicotine dependence; Z85.3 Personal history of malignant neoplasm of breast; Z90.13 Acquired absence of bilateral breasts and nipples; Z79.02 Long term (current) use of antithrombotics/antiplatelets; Z79.84 Long term (current) use of oral hypoglycemic drugs; Z98.84 Bariatric surgery status; Z95.828 Presence of other vascular implants and grafts
CPT/HCPCS: 36415; 36600; 71045; 71275; 80048; 80053; 81001; 82550; 82553; 82803; 83036; 83605; 83735; 83880; 84484; 85025; 85027; 87040; 87086; 93005; 93010; 94640; 94660; 96365; 96375; 99285; J0692; J0696; J1200; J1650; J1956; J2405; J2930; J3490; J7030; J7614; J7620; S0119

== ENCOUNTER 2018-08-03 20:59 | Emergency (ER) | payer MEDICARE, MEDICAID ==
[2018-08-03] MEDS ORDERED: ASPIRIN 81 MG TABLET, CHEWABLE PO ONE (21:11)
[2018-08-03 22:07] LABS: ABSOLUTE BASOPHILS # (AUTO) 0.1 10^3/uL (0.0-0.2); ABSOLUTE EOSINOPHILS # (AUTO) 0.2 10^3/uL (0.0-0.6); ABSOLUTE LYMPHOCYTES (AUTO) 0.6 10^3/uL (0.5-4.7); ABSOLUTE MONOCYTES (AUTO) 0.7 10^3/uL (0.1-1.4); ABSOLUTE NEUT (AUTO) 6.6 10^3/uL (1.7-8.2); BASOPHILS % (AUTO) 0.8 % (0-2); HEMOGLOBIN 9.7 g/dL (12.0-15.5); RED CELL DISTRIBUTION WIDTH 19.7 % (11.5-14.0); TOTAL CELLS COUNTED % (AUTO) 100 %
--- NOTE | 2018-08-03 22:07 | RADIOLOGY REPORT (SQ) ---
EXAM DESCRIPTION: [facility]: XR CHEST 1 VIEW CLINICAL HISTORY: 72 years Female, Chest pain COMPARISON: 07/29/2018 FINDINGS: Lungs are clear, with no focal infiltrate, pneumothorax, or pleural effusion. Right IJ port remains in place, tip in the SVC. Mild aortic calcification is again noted. Mediastinum is unchanged. Severe chronic changes of the left shoulder are again partially visualized. Bilateral chest wall surgical clips are again noted. IMPRESSION: No acute pulmonary findings. No change since 07/29/2018
[2018-08-03 22:10] LABS: EOSINOPHILS % (AUTO) 2.5 % (0-6); HEMATOCRIT 28.6 % (36.0-47.0); LYMPHOCYTES % (AUTO) 7.7 % (13-45); MEAN CORPUSCULAR HEMOGLOBIN 31.1 pg (27.0-33.4); MEAN CORPUSCULAR HGB CONC 33.8 g/dL (32.0-36.0); MEAN CORPUSCULAR VOLUME 92 fl (80-97); MONOCYTES % (AUTO) 8.7 % (3-13); PLATELET COUNT 318 10^3/uL (150-450); RED BLOOD COUNT 3.11 10^6/uL (3.72-5.28); SEGMENTED NEUTROPHILS % (AUTO) 80.3 % (42-78); WHITE BLOOD COUNT 8.3 10^3/uL (4.0-10.5)
[2018-08-03 22:37] LABS: CREATINE KINASE MB 4.15 ng/mL (<4.55)
[2018-08-03 22:42] LABS: TROPONIN I < 0.012 ng/mL
--- NOTE | 2018-08-03 23:34 | RADIOLOGY REPORT (SQ) ---
EXAM DESCRIPTION: Rad[facility]: CT HEAD WITHOUT IV CONTRAST CLINICAL HISTORY: 72 years Female; forehead contusion after fall, on Eliquis TECHNIQUE: Noncontrast CT head. All CT scans at this facility use dose modulation, iterative reconstruction, and/or weight based dosing when appropriate to reduce radiation dose to as low as reasonably achievable. COMPARISON: 11/05/2015 CT FINDINGS: Mild hypodense changes are again noted in the cerebral white matter, nonspecific but typical for mild chronic small vessel disease. No acute hemorrhage or mass effect. Ventricles and cisterns are preserved. Visualized portions of paranasal sinuses and mastoids are clear. There is mild frontal scalp contusion, but no focal scalp hematoma. 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 No calvarial fractures. IMPRESSION: 1. No acute intracranial findings 2. Mild chronic ischemic changes as on prior exam
[2018-08-03 23:57] LABS: ALANINE AMINOTRANSFERASE 19 U/L (9-52); ALBUMIN 3.1 g/dL (3.5-5.0); ALKALINE PHOSPHATASE 114 U/L (38-126); ANION GAP 10 (5-19); ASPARTATE AMINO TRANSFERASE 23 U/L (14-36); BILIRUBIN,DIRECT 0.2 mg/dL (0.0-0.4); BILIRUBIN,TOTAL 0.2 mg/dL (0.2-1.3); BLOOD UREA NITROGEN 50 mg/dL (7-20); CALCIUM 9.1 mg/dL (8.4-10.2); CARBON DIOXIDE 22 mmol/L (22-30); CHLORIDE 103 mmol/L (98-107); GLUCOSE 95 mg/dL (75-110); SODIUM 135.4 mmol/L (137-145)
[2018-08-03 23:58] LABS: CREATINE KINASE 241 U/L (30-135); TOTAL PROTEIN 6.1 g/dL (6.3-8.2)
--- NOTE | 2018-08-03 23:59 | EKG REPORT ---
SEVERITY:- OTHERWISE NORMAL ECG - SINUS RHYTHM : Confirmed by: Sharon Butcher 03-Aug-2018 23:58:54
[2018-08-04] MEDS ORDERED: NORMAL SALINE 1000 ML 1,000 ML IV ONE (00:13)
[2018-08-04 01:09] LABS: APPEARANCE,URINE CLEAR; BILIRUBIN,URINE NEGATIVE (NEGATIVE); COLOR,URINE YELLOW; GLUCOSE, URINE NEGATIVE (NEGATIVE); KETONES,URINE NEGATIVE (NEGATIVE); LEUKOCYTE ESTERASE,URINE NEGATIVE (NEGATIVE); NITRITE,URINE NEGATIVE (NEGATIVE); PROTEIN,URINE 30 mg/dL (NEGATIVE); URINE SPECIFIC GRAVITY 1.019; UROBILINOGEN,URINE NEGATIVE mg/dL (<2.0)
[2018-08-04 04:18] VITALS: BP 98/68
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
== END 2018-08-04 04:18 | disposition home health service (06) ==
LOC: ER 20:59
DX: S00.83XA Contusion of other part of head, initial encounter (principal); R07.9 Chest pain, unspecified; R07.89 Other chest pain; E86.0 Dehydration; W05.0XXA Fall from non-moving wheelchair, initial encounter; Z85.3 Personal history of malignant neoplasm of breast; E11.9 Type 2 diabetes mellitus without complications; J44.9 Chronic obstructive pulmonary disease, unspecified; I48.91 Unspecified atrial fibrillation; Z79.02 Long term (current) use of antithrombotics/antiplatelets
CPT/HCPCS: 93005; 99285; 96360; 36415; 82553; 82550; 85025; 80053; 81001; 84484; 71045; 70450; 93010; J7030

== ENCOUNTER 2018-09-05 22:49 | Emergency (ER) | payer MEDICARE, MEDICAID ==
--- NOTE | 2018-09-05 23:02 | ER Document Report ---
ED General - General Stated Complaint: CHEST PAIN Time Seen by Provider: 09/05/18 22:54 Primary Care Provider: JUNG SALAZAR MD [Primary Care Provider] - Follow up as needed Notes: Patient is a 72-year-old female presents with complaint chest pain. She comes from [facility]. Paramedics to the family says she does have a history of de mentia. Paramedics that when they picked her up she said her chest pain was a 4 out of 10. She then said it started to improve but nitro onset was an 8 out of 10. This it is very difficult to gauge exactly her chest pain as being that she seems confused in regards to the pain scale. Oral temp is 100 degrees. Patient cannot really tell me what makes the pain better or worse. When asked if she has a history of HI she says yes. She says she has had a heart attack 2 weeks ago and was seen "2 miles from here" for heart attack. No record of her being seen here for heart attack. Most recent admission was for pneumonia as well as atrial fibrillation. She is followed by Dr. Bender. She denies feel short of breath. She has no other complaints at this time. Chest pain is just right of the sternal border. She denies it radiating anywhere's. TRAVEL OUTSIDE OF THE [place] IN LAST 30 DAYS: No - Related Data Allergies/Adverse Reactions: No Known Allergies Allergy (Verified 05/06/18 16:30) Past Medical History - Social History Smoking Status: Unknown if Ever Smoked Frequency of alcohol use: None Drug Abuse: None Family History: Reviewed & Not Pertinent - Past Medical History Cardiac Medical History: Reports: Hx Hypercholesterolemia, Hx Hypertension Denies: Hx Coronary Artery Disease, Hx Heart Attack Pulmonary Medical History: Reports: Hx Asthma, Hx COPD Denies: Hx Bronchitis, Hx Pneumonia Neurological Medical History: Denies: Hx Cerebrovascular Accident, Hx Seizures Endocrine Medical History: Reports: Hx Diabetes Mellitus Type 2 Renal/ Medical History: Denies: Hx Peritoneal Dialysis Malignancy Medical History: Reports: Hx Breast Cancer - Left GI Medical History: Reports: Hx Gastroesophageal Reflux Disease, Hx Endoscopy Musculoskeletal Medical History: Reports Hx Arthritis - RA, OA, DEGENERATIVE arthritis Psychiatric Medical History: Reports: Hx Depression Past Surgical History: Reports: Hx Abdominal Surgery - VENTRAL HERNIA REPAIRS WITH MESH, Hx Breast Surgery, Hx Gastric Bypass Surgery - Gastric sleeve, Hx Mastectomy - double, Hx Orthopedic Surgery - right shoulder, Bilat Knee replace ment, bilat feet - Immunizations Immunizations up to date: Yes Hx Diphtheria, Pertussis, Tetanus Vaccination: Yes Hx Pneumococcal Vaccination: 12/27/12 Review of Systems - Review of Systems Notes: My Normal Review Basic REVIEW OF SYSTEMS: CONSTITUTIONAL : Denies fever, chills, or sweats. Denies recent illness. EENT: Denies eye, ear, throat, or mouth pain or symptoms. Denies nasal or sinus congestion. CARDIOVASCULAR: Has chest pain. RESPIRATORY: Denies cough, cold, or chest congestion. Denies shortness of breath, difficulty breathing, or wheezing. GASTROINTESTINAL: Denies abdominal pain. Denies nausea, vomiting, or diarrhea. MUSCULOSKELETAL: Denies neck or back pain or joint pain or swelling. SKIN: Denies rash or skin lesions. NEUROLOGICAL: Denies altered mental status or loss of consciousness. Denies headache. Denies weakness or paralysis or loss of use of either side. Denies problems with gait or speech. Denies sensory or motor loss. ALL OTHER SYSTEMS REVIEWED AND NEGATIVE. Physical Exam - Vital signs Vitals: Resp BP Pulse Ox 14 156/71 H 92 09/05/18 22:54 09/05/18 22:54 09/05/18 22:54 - Notes Notes: General Appearance: Well nourished, alert, cooperative, no acute distress, no obvious discomfort. Vitals: reviewed, See vital signs table. Head: no swelling or tenderness to the head Eyes: PERRL, EOMI, Conjuctiva clear Mouth: No decreasd moisture Lungs: No wheezing, No rales, No rhonci, No accessory muscle use, good air exchange bilaterally. Heart: Normal rate, Regular rythm, No murmur, no rub Abdomen: Normal BS, soft, No rigidity, No abdominal tenderness, No guarding, no rebound, no abdominal masses, no organomegaly Extremities: good pulses in all extremities, no swelling or tenderness in the extremities, no edema. Skin: warm, dry, appropriate color, no rash Neuro: speech clear, oriented x 2, normal affect, responds appropriately to most questions. Cranial nerves II through XII are intact. Patient moves all extremities without difficulty. Distal sensation intact. Course - Re-evaluation Re-evalutation: 09/06/18 02:21 Patient feeling much improved. Her chest pain sounds to be a chronic thing and that she tells me that her chest pain happens about every other day and this is not new. I still went ahead and got a troponin and delta troponin which were both negative. EKG is normal. She does have a fever upon arrival here. Chest x-ray is negative. She really has no associated symptoms with fever. I did check a UA. Her urine was a cath specimen and did show some white blood cells and trace bacteria. I will go ahead and cover her for potential that the UTI is causing her fever. Give her a dose of Rocephin here and I will prescribe her Keflex. I sent her urine for culture. Clinically she looks well. Vital signs are normal. She has no signs of sepsis at this time. Heart rate and blood pressure are normal. I feel she safe to be discharged home. I did call her sister, Jonas, and also informed her of the plan and she is agreeable to it. I informed her to have a low threshold to bring Ms. Saldana back to the ER immediately if she has recurrent fevers not responding to Tylenol, worsening her symptoms, or appears unwell in any way. Patient and her sister agree with plan and she will be discharged home. Dictation of this chart was performed using voice recognition software; therefore, there may be some unintended grammatical errors. - Vital Signs Vital signs: Temp Pulse Resp BP Pulse Ox 98.1 F 19 114/69 95 09/06/18 01:35 09/06/18 00:56 09/06/18 00:56 09/06/18 00:56 - Laboratory Result Diagrams: 09/05/18 23:12 09/05/18 23:12 Laboratory results interpreted by me: 09/05/18 09/05/18 09/05/18 23:12 23:12 23:41 RBC 3.16 L Hgb 9.7 L Hct 29.6 L RDW 19.3 H Seg Neutrophils % 82.1 H Lymphocytes % 5.2 L Glucose 145 H Total Protein 6.1 L Albumin 3.2 L Urine Protein 30 H Ur Leukocyte Esterase SMALL H - EKG Interpretation by Me Additional EKG results interpreted by me: 09/05/18 23:06 EKG is reviewed and into by me. EKG shows sinus rhythm versus A. fib. It is difficult to tell if the patient has a lot of baseline artifact making it difficult to interpret if she truly has P waves. Rhythm appears fairly regular. QRS duration and QT intervals are within normal range. No ST segment elevation or depression. Old EKG for comparison is from August 03, 2018. Discharge - Discharge Clinical Impression: Urinary tract infection Qualifiers: Urinary tract infection type: site unspecified Hematuria presence: without hematuria Qualified Code(s): N39.0 - Urinary tract infection, site not specified Fever Qualifiers: Fever type: unspecified Qualified Code(s): R50.9 - Fever, unspecified Chest pain Qualifiers: Chest pain type: unspecified Qualified Code(s): R07.9 - Chest pain, unspecified Condition: Good Disposition: HOME, SELF-CARE Additional Instructions: Your urine showed evidence of a urinary tract infection. We have given you 1 dose of an antibiotic here and will prescribe you antibiotics to take over the next week. Please follow-up with your doctor this week for reevaluation. Please return to ER immediately if you have recurrent fevers not responding to Tylenol, vomiting, feels if your heart is beating fast, worsening recurrent chest pain, Prescriptions: Cephalexin Monohydrate [Keflex 500 mg Capsule] 500 mg PO BID #14 capsule Referrals: JUNG SALAZAR MD [Primary Care Provider] - Follow up in 3-5 days
[2018-09-05] MEDS ORDERED: ACETAMINOPHEN 325 MG TABLET PO ONE (23:19)
[2018-09-05 23:34] LABS: ABSOLUTE EOSINOPHILS # (AUTO) 0.2 10^3/uL (0.0-0.6); ABSOLUTE LYMPHOCYTES (AUTO) 0.5 10^3/uL (0.5-4.7); ABSOLUTE NEUT (AUTO) 8.1 10^3/uL (1.7-8.2); BASOPHILS % (AUTO) 0.4 % (0-2); EOSINOPHILS % (AUTO) 1.8 % (0-6); HEMATOCRIT 29.6 % (36.0-47.0); HEMOGLOBIN 9.7 g/dL (12.0-15.5); LYMPHOCYTES % (AUTO) 5.2 % (13-45); MEAN CORPUSCULAR HEMOGLOBIN 30.7 pg (27.0-33.4); MEAN CORPUSCULAR HGB CONC 32.7 g/dL (32.0-36.0); MEAN CORPUSCULAR VOLUME 94 fl (80-97); MONOCYTES % (AUTO) 10.5 % (3-13); PLATELET COUNT 231 10^3/uL (150-450); RED BLOOD COUNT 3.16 10^6/uL (3.72-5.28); RED CELL DISTRIBUTION WIDTH 19.3 % (11.5-14.0); SEGMENTED NEUTROPHILS % (AUTO) 82.1 % (42-78); TOTAL CELLS COUNTED % (AUTO) 100 %; WHITE BLOOD COUNT 9.8 10^3/uL (4.0-10.5)
--- NOTE | 2018-09-05 23:46 | EKG REPORT ---
SEVERITY:- ABNORMAL ECG - ATRIAL FLUTTER, A-RATE 0 : Confirmed by: Elena Bean MD 05-Sep-2018 23:46:14
[2018-09-05 23:58] LABS: ALANINE AMINOTRANSFERASE 23 U/L (9-52); ALBUMIN 3.2 g/dL (3.5-5.0); ALKALINE PHOSPHATASE 89 U/L (38-126); ANION GAP 7 (5-19); ASPARTATE AMINO TRANSFERASE 17 U/L (14-36); BILIRUBIN,DIRECT 0.3 mg/dL (0.0-0.4); BILIRUBIN,TOTAL 0.5 mg/dL (0.2-1.3); BLOOD UREA NITROGEN 20 mg/dL (7-20); CALCIUM 8.9 mg/dL (8.4-10.2); CARBON DIOXIDE 30 mmol/L (22-30); CHLORIDE 101 mmol/L (98-107); GLUCOSE 145 mg/dL (75-110); POTASSIUM 4.4 mmol/L (3.6-5.0); SODIUM 138.3 mmol/L (137-145); TOTAL PROTEIN 6.1 g/dL (6.3-8.2)
[2018-09-06 00:07] LABS: APPEARANCE,URINE CLOUDY; BILIRUBIN,URINE NEGATIVE (NEGATIVE); COLOR,URINE YELLOW; GLUCOSE, URINE NEGATIVE (NEGATIVE); KETONES,URINE NEGATIVE (NEGATIVE); LEUKOCYTE ESTERASE,URINE SMALL (NEGATIVE); NITRITE,URINE NEGATIVE (NEGATIVE); PROTEIN,URINE 30 mg/dL (NEGATIVE); URINE SPECIFIC GRAVITY 1.027; UROBILINOGEN,URINE NEGATIVE mg/dL (<2.0)
--- NOTE | 2018-09-06 00:16 | RADIOLOGY REPORT (SQ) ---
EXAM DESCRIPTION: XR CHEST 1 VIEW COMPLETED DATE/TME: 09/05/2018 23:02 CLINICAL HISTORY: 72 years, Female, chest pain COMPARISON: Multiple priors, most recent from 08/03/2018 NUMBER OF VIEWS: One TECHNIQUE: Single frontal radiograph of the chest was obtained. LIMITATIONS: None. FINDINGS: Right IJ approach central venous port catheter tip is located in the SVC. Cardiac and mediastinal contours are stable. Right basilar strandy opacity is noted, likely atelectasis. Lungs are otherwise clear. No pleural effusion or pneumothorax. Multiple surgical clips project about the left axilla. There is chronic deformity of the left shoulder, unchanged. IMPRESSION: No acute disease. copyright 2010 [employer]- All Rights Reserved
[2018-09-06] MEDS ORDERED: KETOROLAC TROMETHAMINE INJ/PF 30 MG/1 ML SDV IV ONE (00:34)
[2018-09-06] MEDS ORDERED: CEFTRIAXONE 1 GM/D5W RTU 1 GM/50 ML RTUPB IV ONE (00:34)
[2018-09-06 07:16] VITALS: BP 127/62
== END 2018-09-06 12:50 | disposition home or self-care (01) ==
LOC: ER 22:49
DX: R07.9 Chest pain, unspecified (principal); N39.0 Urinary tract infection, site not specified; R50.9 Fever, unspecified; I10 Essential (primary) hypertension; J44.9 Chronic obstructive pulmonary disease, unspecified; E11.9 Type 2 diabetes mellitus without complications; Z85.3 Personal history of malignant neoplasm of breast; Z98.84 Bariatric surgery status; Z87.01 Personal history of pneumonia (recurrent)
CPT/HCPCS: 93005; 99285; 96375; 96365; 36415; 87086; 85025; 87088; 80053; 81001; 84484; 87186; 71045; 93010; A9270; J1885; J0696

== ENCOUNTER 2018-10-25 16:51 | Emergency (ER) | payer MEDICARE, MEDICAID ==
--- NOTE | 2018-10-25 18:10 | ER Document Report ---
ED Medical Screen (RME) - General Chief Complaint: Arm Pain Stated Complaint: LEFT ARM PAIN Time Seen by Provider: 10/25/18 18:08 Primary Care Provider: JUNG SALAZAR MD [Primary Care Provider] - Follow up as needed Mode of Arrival: Medic Information source: Patient Notes: Patient is a 72-year-old female presented to the emergency department via EMS from the [facility] with complaints of left upper extremity swelling and pain. Patient reports intermittently over the last several months. She has seen primary care and was placed on morphine. Patient reports pain has worsened and swelling has increased. Denies any history of DVT or PE. Patient is taking Eliquis. Exam: Obvious swelling to the left upper extremity over the upper half of the arm. Strong radial pulse. I have greeted and performed a rapid initial assessment of this patient. A comprehensive ED assessment and evaluation of the patient, analysis of test results and completion of the medical decision making process will be conducted by additional ED providers. I have specifically instructed the patient or family members with the patient to immediately return to any nursing staff should anything change in the patient's condition or with their chief complaint. This medical record was dictated with voice recognizing software. There may be grammatical, syntax errors that are unintended. TRAVEL OUTSIDE OF THE [place] IN LAST 30 DAYS: No - Related Data Allergies/Adverse Reactions: No Known Allergies Allergy (Verified 10/25/18 16:51) Past Medical History - Past Medical History Cardiac Medical History: Reports: Hx Hypercholesterolemia, Hx Hypertension Denies: Hx Coronary Artery Disease, Hx Heart Attack Pulmonary Medical History: Reports: Hx Asthma, Hx COPD Denies: Hx Bronchitis, Hx Pneumonia Neurological Medical History: Denies: Hx Cerebrovascular Accident, Hx Seizures Endocrine Medical History: Reports: Hx Diabetes Mellitus Type 2 Renal/ Medical History: Denies: Hx Peritoneal Dialysis Malignancy Medical History: Reports: Hx Breast Cancer - Left GI Medical History: Reports: Hx Gastroesophageal Reflux Disease, Hx Endoscopy Musculoskeltal Medical History: Reports Hx Arthritis - RA, OA, DEGENERATIVE arthritis Psychiatric Medical History: Reports: Hx Depression Past Surgical History: Reports: Hx Abdominal Surgery - VENTRAL HERNIA REPAIRS WITH MESH, Hx Breast Surgery, Hx Gastric Bypass Surgery - Gastric sleeve, Hx Mastectomy - double, Hx Orthopedic Surgery - right shoulder, Bilat Knee replacement, bilat feet - Immunizations Immunizations up to date: Yes Hx Diphtheria, Pertussis, Tetanus Vaccination: Yes History of Influenza Vaccine for 01/2017 - 06/2017 Season: Yes Influenza Administration Date for 01/2017 - 06/2017 Season: 01/25/17 Physical Exam - Vital signs Vitals: Temp Pulse BP Pulse Ox 98.3 F 57 L 141/67 H 96 10/25/18 16:59 10/25/18 16:59 10/25/18 16:59 10/25/18 16:59 Course - Vital Signs Vital signs: Temp Pulse Resp BP Pulse Ox 98.3 F 57 L 141/67 H 96 10/25/18 16:59 10/25/18 16:59 10/25/18 16:59 10/25/18 16:59 Doctor's Discharge - Discharge Referrals: JUNG SALAZAR MD [Primary Care Provider] - Follow up as needed
[2018-10-25 18:58] LABS: ABSOLUTE BASOPHILS # (AUTO) 0.1 10^3/uL (0.0-0.2); ABSOLUTE EOSINOPHILS # (AUTO) 0.3 10^3/uL (0.0-0.6); ABSOLUTE LYMPHOCYTES (AUTO) 0.7 10^3/uL (0.5-4.7); ABSOLUTE MONOCYTES (AUTO) 0.6 10^3/uL (0.1-1.4); ABSOLUTE NEUT (AUTO) 4.1 10^3/uL (1.7-8.2); BASOPHILS % (AUTO) 1.4 % (0-2); EOSINOPHILS % (AUTO) 4.5 % (0-6); HEMATOCRIT 32.9 % (36.0-47.0); HEMOGLOBIN 10.7 g/dL (12.0-15.5); LYMPHOCYTES % (AUTO) 12.3 % (13-45); MEAN CORPUSCULAR HEMOGLOBIN 30.8 pg (27.0-33.4); MEAN CORPUSCULAR HGB CONC 32.6 g/dL (32.0-36.0); MEAN CORPUSCULAR VOLUME 95 fl (80-97); MONOCYTES % (AUTO) 10.4 % (3-13); PLATELET COUNT 245 10^3/uL (150-450); RED BLOOD COUNT 3.48 10^6/uL (3.72-5.28); RED CELL DISTRIBUTION WIDTH 18.4 % (11.5-14.0); SEGMENTED NEUTROPHILS % (AUTO) 71.4 % (42-78); TOTAL CELLS COUNTED % (AUTO) 100 %; WHITE BLOOD COUNT 5.7 10^3/uL (4.0-10.5)
[2018-10-25 19:04] LABS: INTERNATIONAL RATION (INR) 1.04; PROTHROMBIN TIME 13.6 SEC (11.4-15.4)
[2018-10-25 19:05] LABS: PARTIAL THROMBOPLASTIN TIME 32.3 SEC (23.5-35.8)
[2018-10-25 19:28] LABS: ALANINE AMINOTRANSFERASE 22 U/L (9-52); ALKALINE PHOSPHATASE 86 U/L (38-126); ANION GAP 6 (5-19); ASPARTATE AMINO TRANSFERASE 23 U/L (14-36); BILIRUBIN,DIRECT 0.2 mg/dL (0.0-0.4); BILIRUBIN,TOTAL 0.3 mg/dL (0.2-1.3); BLOOD UREA NITROGEN 22 mg/dL (7-20); CALCIUM 9.1 mg/dL (8.4-10.2); CARBON DIOXIDE 31 mmol/L (22-30); CHLORIDE 101 mmol/L (98-107); GLUCOSE 101 mg/dL (75-110); POTASSIUM 4.8 mmol/L (3.6-5.0); TOTAL PROTEIN 6.8 g/dL (6.3-8.2)
--- NOTE | 2018-10-25 19:41 | ER Document Report ---
HPI - HPI Time Seen by Provider: 10/25/18 18:08 Pain Level: 4 Notes: Patient is a 72-year-old female presenting to the emergency department with chief complaint of left arm swelling. She reports this has been going on for approximately 2 weeks. She states she has been seen by her primary care provider for this who told her that he could not find anything wrong. She is worried that she may have a blood clot. She has no history of DVTs or PEs. She has not had any recent travel and does not take any hormone replacements. She denies any chest pain, shortness of breath or difficulty breathing. - REPRODUCTIVE Reproductive: DENIES: : Past Medical History - General Information source: Patient - Social History Smoking Status: Never Smoker Frequency of alcohol use: None Drug Abuse: None Family History: Reviewed & Not Pertinent - Past Medical History Cardiac Medical History: Reports: Hx Hypercholesterolemia, Hx Hypertension Denies: Hx Coronary Artery Disease, Hx Heart Attack Pulmonary Medical History: Reports: Hx Asthma, Hx COPD Denies: Hx Bronchitis, Hx Pneumonia Neurological Medical History: Denies: Hx Cerebrovascular Accident, Hx Seizures Endocrine Medical History: Reports: Hx Diabetes Mellitus Type 2 Renal/ Medical History: Denies: Hx Peritoneal Dialysis Malignancy Medical History: Reports: Hx Breast Cancer - Left GI Medical History: Reports: Hx Gastroesophageal Reflux Disease, Hx Endoscopy Musculoskeletal Medical History: Reports Hx Arthritis - RA, OA, DEGENERATIVE arthritis Psychiatric Medical History: Reports: Hx Depression Past Surgical History: Reports: Hx Abdominal Surgery - VENTRAL HERNIA REPAIRS WITH MESH, Hx Breast Surgery, Hx Gastric Bypass Surgery - Gastric sleeve, Hx Mastectomy - double, Hx Orthopedic Surgery - right shoulder, Bilat Knee replacement, bilat feet - Immunizations Immunizations up to date: Yes Hx Diphtheria, Pertussis, Tetanus Vaccination: Yes Hx Pneumococcal Vaccination: 12/27/12 Vertical Provider Document - CONSTITUTIONAL Notes: PHYSICAL EXAMINATION: GENERAL: Well-appearing, well-nourished and in no acute distress. HEAD: Atraumatic, normocephalic. EYES: Pupils equal round extraocular movements intact, conjunctiva are normal. ENT: Nares patent NECK: Normal range of motion LUNGS: No respiratory distress, lung sounds clear and equal bilaterally. Musculoskeletal: Normal range of motion, swelling noted to left upper extremity, no erythema or ecchymosis noted. Strong radial pulse noted. Cap refill less than 3 seconds, normal motor and sensation to left arm. NEUROLOGICAL: Normal speech, normal gait. PSYCH: Normal mood, normal affect. SKIN: Warm, Dry, normal turgor, no rashes or lesions noted. - INFECTION CONTROL TRAVEL OUTSIDE OF THE [place] IN LAST 30 DAYS: No Course - Re-evaluation Re-evalutation: CBC, CMP and coagulation panel is unremarkable. Venous Doppler ultrasound was obtained of the left upper extremity and shows no DVT or SVT. All test results were discussed with the patient. I did encourage her to continue taking all home medications as prescribed by her primary care provider and to follow-up with her primary care provider regarding her concerns and we did discuss that they may want to do a repeat venous Doppler study in 10 days. Patient verbalized understanding and agreement with this plan. - Vital Signs Vital signs: Temp Pulse Resp BP Pulse Ox 98.3 F 57 L 141/67 H 96 10/25/18 16:59 10/25/18 16:59 10/25/18 16:59 10/25/18 16:59 - Laboratory Result Diagrams: 10/25/18 18:41 10/25/18 18:41 Laboratory results interpreted by me: 10/25/18 10/25/18 18:41 18:41 RBC 3.48 L Hgb 10.7 L Hct 32.9 L RDW 18.4 H Lymphocytes % 12.3 L Carbon Dioxide 31 H BUN 22 H Discharge - Discharge Clinical Impression: Left upper extremity swelling Condition: Stable Disposition: HOME, SELF-CARE Additional Instructions: Your blood work today and the Doppler ultrasound of your left upper extremity were normal. At this time there is no evidence of any blood clot in your arm. Please take the results that I have given you and follow-up with your primary care provider. In the meantime please take ibuprofen 600 mg every 6 hours to help with pain and inflammation. Elevate the extremity as much as possible. Please return to the emergency department with any new or worsening symptoms to include worsening pain, difficulty breathing, chest pain or any other symptom that is concerning to you. Referrals: JUNG SALAZAR MD [Primary Care Provider] - Follow up as needed
[2018-10-25 20:49] VITALS: BP 164/64
--- NOTE | 2018-10-26 09:25 | XCELERA REPORT ---
[address] [address] Upper Extremity Venous Evaluation Name: RICK ROMANO Age: 72 yrs Gender: Female : 1945 Patient Status: Emergency Patient Location: ER Study Date: 10/25/2018 07:04 PM Procedure: Unilateral duplex scan of the left upper extremity veins was performed, including responses to compression and other maneuvers. Reason For Study: LUE pain/swelling Ordering Physician: HUDSON MEDRANO Performed By: Anais Padilla Left Sided Venous Evaluation Normal vessel filling wall to wall, compression and augmentation as well as Colour flow down to the forearm veins. Interpretation Summary Normal compression, patency, spontaneous and phasic flow of the left upper extremity veins. : HUDSON MEDRANO > Surya Benito
== END 2018-10-25 22:26 | disposition home or self-care (01) ==
LOC: ER 16:51
DX: R22.32 Localized swelling, mass and lump, left upper limb (principal); E78.00 Pure hypercholesterolemia, unspecified; I10 Essential (primary) hypertension; E11.9 Type 2 diabetes mellitus without complications; Z85.3 Personal history of malignant neoplasm of breast; Z98.84 Bariatric surgery status; Z96.653 Presence of artificial knee joint, bilateral
CPT/HCPCS: 36415; 80053; 85025; 85610; 85730; 93971; 99285

== ENCOUNTER 2018-12-05 06:50 | Emergency (ER) | payer MEDICARE, MEDICAID ==
[2018-12-05] MEDS ORDERED: OXYCODONE-ACETAMINOPHEN 5-325 MG TABLET PO ONE (08:06)
--- NOTE | 2018-12-05 08:53 | RADIOLOGY REPORT (SQ) ---
EXAM DESCRIPTION: TIBIA FIBULA LEFT COMPLETED DATE/TIME: 12/05/2018 8:41 am REASON FOR STUDY: pain COMPARISON: None. NUMBER OF VIEWS: Two views. TECHNIQUE: Two radiographic images acquired of the left tibia and fibula to include the knee and ank le in at least one projection. LIMITATIONS: None. FINDINGS: MINERALIZATION: Osteopenia. BONES: No acute fracture. There is lucency along the stem of the tibial portion of the knee prosthes is. Suggest loosening. SOFT TISSUES: No obvious swelling or foreign body. OTHER: No other significant finding. IMPRESSION: Lucency along the distal stem of the knee prosthesis suggest loosening/infection. TECHNICAL DOCUMENTATION: JOB ID: [id number] [employer]- All Rights Reserved Reading location - IP/workstation name: [email or web address]
--- NOTE | 2018-12-05 08:53 | ER Document Report ---
ED General - General Chief Complaint: Pain All Over Stated Complaint: ARM/KNEE PAIN Time Seen by Provider: 12/05/18 07:23 Primary Care Provider: JUNG SALAZAR MD [Primary Care Provider] - Follow up as needed TRAVEL OUTSIDE OF THE [place] IN LAST 30 DAYS: No - HPI Notes: Patient is a 72-year-old female, [facility]. She is a very vague historian. She states she is here because of pain. She is already on chronic pain medication. She denies any injury. I asked her to explain what prompted her visit today. She states to me, "they said that the cancer is back." I asked her if she can elaborate. She states to me that she overheard someone talking in the hallway while admitted to the hospital. I asked her when this was. She states it was "some time ago." She is on morphine [facility] the [facility], states that it is not helping. She denies any chest pain or difficulty breathing. She states she hurts all over, but notes that she has most pain in her left shoulder, left hip, and left lower leg. She states that she does walk some, but not much because of the pain. She also states she does not move her shoulder much because of the pain. She denies any fevers or chills, no nausea or vomiting. - Related Data Allergies/Adverse Reactions: No Known Allergies Allergy (Verified 10/25/18 16:51) Past Medical History - General Information source: Patient, [facility] Records - Social History Smoking Status: Never Smoker Family History: Reviewed & Not Pertinent Patient has suicidal ideation: No Patient has homicidal ideation: No - Past Medical History Cardiac Medical History: Reports: Hx Hypercholesterolemia, Hx Hypertension Denies: Hx Coronary Artery Disease, Hx Heart Attack Pulmonary Medical History: Reports: Hx Asthma, Hx COPD Denies: Hx Bronchitis, Hx Pneumonia Neurological Medical History: Denies: Hx Cerebrovascular Accident, Hx Seizures Endocrine Medical History: Reports: Hx Diabetes Mellitus Type 2 Renal/ Medical History: Denies: Hx Peritoneal Dialysis Malignancy Medical History: Reports: Hx Breast Cancer - Left GI Medical History: Reports: Hx Gastroesophageal Reflux Disease, Hx Endoscopy Musculoskeletal Medical History: Reports Hx Arthritis - RA, OA, DEGENERATIVE arthritis Psychiatric Medical History: Reports: Hx Depression Past Surgical History: Reports: Hx Abdominal Surgery - VENTRAL HERNIA REPAIRS WITH MESH, Hx Breast Surgery, Hx Gastric Bypass Surgery - Gastric sleeve, Hx Mastectomy - double, Hx Orthopedic Surgery - right shoulder, Bilat Knee replacement, bilat feet - Immunizations Immunizations up to date: Yes Hx Diphtheria, Pertussis, Tetanus Vaccination: Yes Hx Pneumococcal Vaccination: 12/27/12 Review of Systems - Review of Systems Constitutional: Weakness EENT: No symptoms reported Cardiovascular: No symptoms reported Respiratory: No symptoms reported Gastrointestinal: No symptoms reported Genitourinary: No symptoms reported Musculoskeletal: See HPI Skin: No symptoms reported Neurological/Psychological: No symptoms reported Physical Exam - Vital signs Vitals: Temp Pulse Resp BP Pulse Ox 98.9 F 68 20 137/66 H 91 L 12/05/18 06:55 12/05/18 06:55 12/05/18 06:55 12/05/18 06:55 12/05/18 06:55 - Notes Notes: This is a 72-year-old female who appears her stated age in no acute distress. Head is normocephalic and atraumatic. Pupils are equal and round, reactive to light. Oral mucosa is moist. Neck is supple without meningismus. Heart is regular rate and rhythm, lungs are clear to auscultation bilaterally. Abdomen is soft, nontender, normoactive bowel sounds. Posterior calves nontender. Skin is warm and dry. Examination of the left upper extremity yields no obvious deformity. The patient holds the left upper extremity abducted, resists any active or passive range of motion. She is neurovascularly intact distally. She has no bony tenderness about the olecranon, radius, ulna, wrist. Patient resists any active or passive range of motion of the left lower extremity as well. She has mild tenderness to palpation over the left greater trochanter. Mild bony tenderness to the distal tibia. She has a well approximated, well- healed surgical cicatrix over the anterior left knee, consistent with TKR. No erythema, induration noted. No malleolus tenderness to palpation. Neurovascularly intact distally. Course - Re-evaluation Re-evalutation: 12/05/18 08:53 Patient presents emergency department for evaluation. She has not had any injury. She has no overt abnormalities. X-rays ordered, patient medicated with Percocet. We will continue to monitor. 12/05/18 09:32 Images ordered and resulted as noted. Chronic changes about the shoulder. There is some concerned about loosening versus infection in her left knee prosth esis. The patient has no clinical signs of infection. She really is not complaining of increased pain in her knee area, just the entire leg, more the proximal femur/hip area. I suspect this is all her chronic pain. She was notified of the findings in her knee. She states that her knee was replaced several years ago, by an orthopedist in [place] whom she believes is no longer practicing. She cannot remember his name. Will review her chart for more recent orthopedic consultation, have her follow-up. She is already on chronic pain medication. She is to return to the emergency department with worsening or new concerning symptoms of any sort. 12/05/18 09:37 unit secretary notified me that the patient's sister called here. She states she does not fact have cancer. She did not elaborate as to type. She is on hospice. Sister's primary concern was when she would be going back to the [facility]. At this point patient will be discharged. - Vital Signs Vital signs: Temp Pulse Resp BP Pulse Ox 98.5 F 66 14 140/61 H 93 12/05/18 07:46 12/05/18 07:46 12/05/18 07:46 12/05/18 07:46 12/05/18 07:46 - Diagnostic Test Radiology reviewed: Reports reviewed Radiology results interpreted by me: 12/05/18 09:33 Hip X-Ray 12/05/18 08:04 IMPRESSION: No significant finding in the left hip. Degenerative changes of the right hip. Shoulder X-Ray 12/05/18 08:04 IMPRESSION: Chronic anterior subluxation/dislocation with marked destructive changes of the humeral head and associated loose bodies. Neuropathic joint versus laxity related to a chronic subluxation/ dislocation. Tibia/Fibula X-Ray 12/05/18 08:05 IMPRESSION: Lucency along the distal stem of the knee prosthesis suggest loosening/infection. Discharge - Discharge Clinical Impression: Chronic left shoulder pain, Chronic pain of left lower extremity, Chronic pain Loosening of prosthesis of left total knee replacement Qualifiers: Encounter type: initial encounter Qualified Code(s): T84.033A - Mechanical loosening of internal left knee prosthetic joint, initial encounter Condition: Stable Disposition: HOME-SNF (ED ONLY) Instructions: Chronic Pain Control ([facility]) Additional Instructions: There was some indication that your knee prosthesis is loosening on your x-ray. Please follow-up with orthopedics regarding this. Take your regular medications as prescribed. Follow-up with your primary care physician this week. Return to the emergency department with worsening or new concerning symptoms. Referrals: JUNG SALAZAR MD [Primary Care Provider] - Follow up as needed
--- NOTE | 2018-12-05 08:54 | RADIOLOGY REPORT (SQ) ---
EXAM DESCRIPTION: HIP LEFT AP/LATERAL COMPLETED DATE/TIME: 12/05/2018 8:41 am REASON FOR STUDY: pain COMPARISON: None. NUMBER OF VIEWS: Two views. TECHNIQUE: AP pelvis and additional frog-leg view of the left hip. LIMITATIONS: None. FINDINGS: MINERALIZATION: Osteopenia. LEFT HIP: No fracture or dislocation. No worrisome bone lesions. No contour deformity. No joint spa ce narrowing. RIGHT HIP: Degenerative changes with joint space narrowing. PUBIS AND ISCHIUM: No fracture. PELVIS: No fracture. SACRUM: No fracture or dislocation. No worrisome bone lesions. LOWER LUMBAR SPINE: Degenerative changes. SOFT TISSUES: Hernia coils. OTHER: No other significant finding. IMPRESSION: No significant finding in the left hip. Degenerative changes of the right hip. TECHNICAL DOCUMENTATION: JOB ID: [id number] [employer]- All Rights Reserved Reading location - IP/workstation name: [email or web address]
--- NOTE | 2018-12-05 08:56 | RADIOLOGY REPORT (SQ) ---
EXAM DESCRIPTION: SHOULDER LEFT 2 OR MORE VIEWS COMPLETED DATE/TIME: 12/05/2018 8:41 am REASON FOR STUDY: pain COMPARISON: 07/20/2016 NUMBER OF VIEWS: Three views. TECHNIQUE: Internal rotation, external rotation, and Y view images acquired of the left shoulder. LIMITATIONS: None. FINDINGS: MINERALIZATION: Osteopenia. BONES: Chronic anterior subluxation/ dislocation. Marked destructive changes of the humeral head. N europathic joint versus chronic dislocations. JOINTS: Anterior subluxation dislocation. VISUALIZED LUNGS AND RIBS: No pneumothorax. No rib fracture. SOFT TISSUES: No radiopaque foreign body. OTHER: No other significant finding. IMPRESSION: Chronic anterior subluxation/dislocation with marked destructive changes of the humeral head and associated loose bodies. Neuropathic joint versus laxity related to a chronic subluxation/ dislocation. TECHNICAL DOCUMENTATION: JOB ID: [id number] [employer]- All Rights Reserved Reading location - IP/workstation name: [email or web address]
[2018-12-05 10:27] VITALS: BP 116/86
== END 2018-12-05 10:27 ==
LOC: ER 06:50
DX: M24.412 Recurrent dislocation, left shoulder (principal); T84.033A Mechanical loosening of internal left knee prosthetic joint, initial encounter; Y79.2 Prosthetic and other implants, materials and accessory orthopedic devices associated with adverse incidents; M25.552 Pain in left hip; M25.512 Pain in left shoulder; M79.662 Pain in left lower leg; G89.29 Other chronic pain; Z79.891 Long term (current) use of opiate analgesic; R53.1 Weakness; I10 Essential (primary) hypertension; J44.9 Chronic obstructive pulmonary disease, unspecified; E11.9 Type 2 diabetes mellitus without complications; Z85.3 Personal history of malignant neoplasm of breast; Z98.84 Bariatric surgery status
CPT/HCPCS: 99284; 73502; 73030; 73590; A9270

== ENCOUNTER 2018-12-12 20:04 | Emergency (ER) | payer MEDICARE, MEDICAID ==
[2018-12-12 20:55] LABS: HEMATOCRIT 25.2 % (36.0-47.0); HEMOGLOBIN 8.1 g/dL (12.0-15.5); MEAN CORPUSCULAR HEMOGLOBIN 31.5 pg (27.0-33.4); MEAN CORPUSCULAR HGB CONC 32.1 g/dL (32.0-36.0); MEAN CORPUSCULAR VOLUME 98 fl (80-97); PLATELET COUNT 244 10^3/uL (150-450); RED BLOOD COUNT 2.56 10^6/uL (3.72-5.28); RED CELL DISTRIBUTION WIDTH 19.5 % (11.5-14.0); WHITE BLOOD COUNT 7.8 10^3/uL (4.0-10.5)
--- NOTE | 2018-12-12 20:56 | ER Document Report ---
ED General - General Chief Complaint: Near Syncope Stated Complaint: NEAR SYNCOPE Time Seen by Provider: 12/12/18 20:22 Primary Care Provider: JUNG SALAZAR MD [Primary Care Provider] - Follow up as needed Notes: 72-year-old female with long history of chronic medical problems, living in facility, reportedly hospice but full code??, Presents with near syncope. Currently she was lost consciousness tonight was noted to be hypotensive by EMS. No fever TRAVEL OUTSIDE OF THE [place] IN LAST 30 DAYS: No - Related Data Allergies/Adverse Reactions: No Known Allergies Allergy (Verified 10/25/18 16:51) Past Medical History - Social History Smoking Status: Never Smoker Family History: Reviewed & Not Pertinent Patient has suicidal ideation: No Patient has homicidal ideation: No - Past Medical History Cardiac Medical History: Reports: Hx Hypercholesterolemia, Hx Hypertension Denies: Hx Coronary Artery Disease, Hx Heart Attack Pulmonary Medical History: Reports: Hx Asthma, Hx COPD Denies: Hx Bronchitis, Hx Pneumonia Neurological Medical History: Denies: Hx Cerebrovascular Accident, Hx Seizures Endocrine Medical History: Reports: Hx Diabetes Mellitus Type 2 Renal/ Medical History: Denies: Hx Peritoneal Dialysis Malignancy Medical History: Reports: Hx Breast Cancer - Left GI Medical History: Reports: Hx Gastroesophageal Reflux Disease, Hx Endoscopy Musculoskeletal Medical History: Reports Hx Arthritis - RA, OA, DEGENERATIVE arthritis Psychiatric Medical History: Reports: Hx Depression Past Surgical History: Reports: Hx Abdominal Surgery - VENTRAL HERNIA REPAIRS WITH MESH, Hx Breast Surgery, Hx Gastric Bypass Surgery - Gastric sleeve, Hx Mastectomy - double, Hx Orthopedic Surgery - right shoulder, Bilat Knee replacement, bilat feet - Immunizations Immunizations up to date: Yes Hx Diphtheria, Pertussis, Tetanus Vaccination: Yes Hx Pneumococcal Vaccination: 12/27/12 Physical Exam - Vital signs Vitals: Pulse Ox 89 L 12/12/18 20:11 Course - Re-evaluation Re-evalutation: 12/13/18 00:10 Presents with near syncope and hypotension. Septic work-up was done, fluids were given. EKG rules out large RI. Labs were done which show some acute kidney injury consistent with dehydration. There is some blood in her urine. In the middle of her work-up I spoke with her family who stated that if there is something in merely reversible such dehydration and would like her to be sent home. The hospice nurse Tammy was actually in the department spoke with family agreed to send her home after IV fluids. Aggressive treatment is not with her goals of care and she was discharged with hospice. I have discussed with the patient there likely diagnosis, aftercare plan, follow-up plans and my usual and customary return precautions. They verbalized understanding of this. - Vital Signs Vital signs: Temp Pulse Resp BP Pulse Ox 106/46 L 96 12/12/18 21:40 12/12/18 22:00 - Laboratory Result Diagrams: 12/12/18 20:42 12/12/18 20:42 Laboratory results interpreted by me: 12/12/18 12/12/18 12/12/18 20:42 20:42 21:59 RBC 2.56 L Hgb 8.1 L Hct 25.2 L MCV 98 H RDW 19.5 H Seg Neuts % (Manual) 82 H Band Neutrophils % 1 L Lymphocytes % (Manual) 3 L Eosinophils % (Manual) 9 H Abs Lymphs (Manual) 0.2 L Absolute Eos (Manual) 0.7 H Sodium 136.2 L Potassium 5.5 H BUN 49 H Creatinine 2.12 H Est GFR ( Amer) 28 L Est GFR (Non-Af Amer) 23 L Glucose 164 H Urine Protein 30 H Urine Blood LARGE H Ur Leukocyte Esterase LARGE H - Diagnostic Test Radiology reviewed: Image reviewed, Reports reviewed - EKG Interpretation by Me EKG shows normal: Sinus rhythm Rate: Normal Rhythm: NSR Discharge - Discharge Clinical Impression: Dehydration Condition: Good Disposition: HOME, SELF-CARE Additional Instructions: You have been seen for dehydration. According to your goals of care and hospice program we are discharging you home. Please continue oral hydration and follow- up with your primary care as well as her hospice team. Referrals: JUNG SALAZAR MD [Primary Care Provider] - Follow up as needed
[2018-12-12 21:22] LABS: ANION GAP 6 (5-19); BLOOD UREA NITROGEN 49 mg/dL (7-20); CALCIUM 8.7 mg/dL (8.4-10.2); CARBON DIOXIDE 24 mmol/L (22-30); CHLORIDE 106 mmol/L (98-107); GLUCOSE 164 mg/dL (75-110); POTASSIUM 5.5 mmol/L (3.6-5.0)
[2018-12-12 21:26] LABS: ABSOLUTE LYMPHOCYTES# (MANUAL) 0.2 10^3/uL (0.5-4.7); ABSOLUTE MONOCYTES # (MANUAL) 0.2 10^3/uL (0.1-1.4); ANISOCYTOSIS 2+; BAND NEUTROPHILS % (MANUAL) 1 % (3-5); BASOPHILS % (MANUAL) 2 % (0-2); EOSINOPHILS % (MANUAL) 9 % (0-6); HYPOCHROMASIA SLIGHT; LYMPHOCYTES % (MANUAL) 3 % (13-45); MONOCYTES % (MANUAL) 3 % (3-13); NUCLEATED RED BLOOD CELLS 1 /100 WBC (0); PLATELET COMMENT ADEQUATE; SEGMENTED NEUTROPHILS % (MAN) 82 % (42-78); TOTAL CELLS COUNTED 100
[2018-12-12 22:26] LABS: APPEARANCE,URINE CLOUDY; BILIRUBIN,URINE NEGATIVE (NEGATIVE); COLOR,URINE YELLOW; GLUCOSE, URINE NEGATIVE (NEGATIVE); KETONES,URINE NEGATIVE (NEGATIVE); LEUKOCYTE ESTERASE,URINE LARGE (NEGATIVE); NITRITE,URINE NEGATIVE (NEGATIVE); PROTEIN,URINE 30 mg/dL (NEGATIVE); UROBILINOGEN,URINE NEGATIVE mg/dL (<2.0)
--- NOTE | 2018-12-13 00:29 | EKG REPORT ---
SEVERITY:- OTHERWISE NORMAL ECG - SINUS RHYTHM LOW VOLTAGE IN FRONTAL LEADS : Confirmed by: Sharon Butcher 13-Dec-2018 00:27:42
[2018-12-13 05:46] VITALS: BP 93/50
== END 2018-12-13 00:15 | disposition home or self-care (01) ==
LOC: ER 20:04
DX: E86.0 Dehydration (principal); R42 Dizziness and giddiness; I10 Essential (primary) hypertension; J44.9 Chronic obstructive pulmonary disease, unspecified; E11.9 Type 2 diabetes mellitus without complications
CPT/HCPCS: 36415; 80048; 81001; 84484; 85025; 93005; 93010; 99284